=== PATIENT | male | born 1970 | race Caucasian/White ===

== ENCOUNTER → 2016-06-05 | Outpatient (CLI) | payer OTHER ==
[~2016-06-05] MED LIST: ASPCH81X PO; HYDR-4717 PO; HYG/25 PO; LISI40TA PO; METO1TAB68 PO
[2016-06-05 17:48] LABS: BLOOD UREA NITROGEN 25 mg/dl (7-18); BUN/CREATININE RATIO 15.5 (10-20); CALCIUM 8.8 mg/dl (8.5-10.1); CARBON DIOXIDE 23 mmol/L (21-32); CHLORIDE 105 mmol/L (98-107); GLUCOSE 88 mg/dl (70-99); MAGNESIUM 2.3 mg/dl (1.8-2.4); PHOSPHORUS 2.5 mg/dl (2.5-4.9); POTASSIUM 3.3 mmol/L (3.5-5.1); SODIUM 142 mmol/L (136-145)
[2016-06-05 18:09] LABS: CHOLESTEROL 190 mg/dl (0-200); CHOLESTEROL/HDL RATIO 5.4; HDL CHOLESTEROL 35 mg/dl; TRIGLYCERIDES 400 mg/dl (0-150)
== END | disposition home or self-care (01) ==
LOC: C.LABBFT 12:28
PROVIDERS: ATTEND Internal Medicine Nephrology
DX: I10 Essential (primary) hypertension (principal)

== ENCOUNTER 2017-05-26 07:26 | Emergency (ER) | payer OTHER ==
[~2017-05-26] VITALS: Ht 182.9 cm; Wt 126.9 kg
[~2017-05-26 07:26] MED LIST changes: +METO-479 PO; -METO1TAB68 PO
[2017-05-26 07:33] VITALS: Ht 182.9 cm; Wt 126.9 kg
[2017-05-26] MEDS ORDERED: DEXAMETHASONE **PF** INJ 10 MG/ML VIAL IV ONE (08:00)
--- NOTE | 2017-05-26 08:04 | EMERGENCY ROOM VISIT NOTE ---
History Report prepared by [employer]: Rachele Wadsworth Under the Supervision of: Dr. Jenny Rowell D.O. First contact with patient: 07:39 Chief Complaint: SWELLING TO EXTREMITY Stated Complaint: SWELLED/PAINFUL HANDS,ELBOWS LOCKING/PAIN,ABD PAIN History of Present Illness The patient is a 46 year old male who presents to the Emergency Room with complaints of persistent swelling to his hands for the past 3 to 4 days. He states he saw his doctor for neck pain 2 days ago who prescribed him Aleve and a muscle relaxer. His neck pain resolved, but then his hands became "painful and swollen". He rates his pain as a 6.5/10 in severity and describes it as feeling like "tingling". The swelling does not extend past his wrists. Any movement worsens his discomfort. 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 He wears gloves when he is working and last worked 2 days [employer]. He also reports he moved yesterday and while he wasn't able to help with moving boxes, he was able to drive his truck and hold the steering wheel. The patient denies any recent fevers, chills, cough, congestion, nausea, vomiting or diarrhea. Source of History: patient Onset: 3 to 4 days [employer] Position: hand (bilateral) Symptom Intensity: 6.5/10 Timing: other (persistent) Modifying Factors (Worsening): movement Associated Symptoms: No fevers, No chills, No cough (or congestion), No nausea, No vomiting, No diarrhea Review of Systems See HPI for pertinent positives and negatives. A total of ten systems were reviewed and were otherwise negative. Past Medical & Surgical Medical Problems: (1) Hypertension (2) Hypertensive urgency (3) Kidney stone Family History Hypertension Social History Smoking Status: Current Some Day Smoker Alcohol Use: occasionally Drug Use: none Marital Status: , other (engaged) Housing Status: lives with family Occupation Status: employed Current/Historical Medications Scheduled Aspirin (Aspirin Chewable), 81 MG PO DAILY Chlorthalidone (Hygroton), 25 MG PO DAILY Cholecalciferol (Vitamin D3), 1,000 UNITS PO DAILY Hydralazine Hcl (Apresoline), 50 MG PO TID Levothyroxine Sodium (Levothyroxine Sodium), 25 MG PO DAILY Lisinopril (Zestril), 40 MG PO DAILY Metoprolol Succinate (Toprol Xl), 100 MG PO BID Prednisone (Prednisone), 3 TAB PO DAILY Simvastatin (Zocor), 20 MG PO QPM Scheduled PRN Methocarbamol (Robaxin), 500 MG PO QID PRN for Muscle Spasms Allergies Coded Allergies: No Known Allergies (Unverified , 05/26/17) Physical Exam Vital Signs Date Time Temp Pulse Resp B/P (MAP) Pulse Ox O2 Delivery O2 Flow Rate FiO2 05/26/17 14:59 37.4 68 18 114/62 99 Room Air 05/26/17 14:59 68 18 114/59 99 05/26/17 13:53 77 20 103/60 98 Room Air 05/26/17 12:30 73 20 100/62 98 Room Air 05/26/17 11:00 73 20 125/74 99 Room Air 05/26/17 09:42 90 20 121/71 05/26/17 08:34 91 05/26/17 08:29 92 20 120/85 91 Room Air 05/26/17 08:18 96 Room Air 05/26/17 07:33 37.4 110 18 104/62 96 Room Air Physical Exam GENERAL: Awake, alert, well-appearing, in no distress HENT: Normocephalic, atraumatic. Oropharynx unremarkable. Dry mucous membranes. EYES: Normal conjunctiva. Sclera non-icteric. NECK: Supple. No nuchal rigidity. FROM. No JVD. RESPIRATORY: Clear to auscultation. CARDIAC: Regular rate, normal rhythm. Extremities warm and well perfused. Pulses equal. ABDOMEN: Soft, non-distended. No tenderness to palpation. No rebound or guarding. No masses. RECTAL: Deferred. MUSCULOSKELETAL: Chest examination reveals no tenderness. The back is symmetrical on inspection without obvious abnormality. There is no CVA tenderness to palpation. Mild edema of bilateral hands with slight warmth but no overlying erythema. Right hand with FROM passive and active. Left hand with pain with passive stretch of 3rd and 4th phalanges. No ttp or edema proximally to hands of BLE. Compartments soft. Brisk cap refill. LOWER EXTREMITIES: Calves are equal size bilaterally and non-tender. No edema. No discoloration. NEURO: Normal sensorium. No sensory or motor deficits noted. SKIN: No rash or jaundice noted. Medical Decision & Procedures ER Provider Diagnostic Interpretation: Radiology results as stated below per my review and radiologist interpretation: CHEST ONE VIEW PORTABLE CLINICAL HISTORY: Chest pain. COMPARISON STUDY: Chest radiograph July 24, 2015. FINDINGS: Lung volumes are mildly diminished. Linear bibasilar opacities favor atelectasis. Mild interstitial thickening is noted. Mild cardiomegaly is noted. A 2.2 cm right apical density is similar to prior exam. IMPRESSION: 1. Mild interstitial thickening which is nonspecific and could reflect mild pulmonary edema, infectious process or interstitial lung disease. 2. No change in a 2.2 cm right apical density. A follow-up nonemergent chest CT is recommended to exclude a pulmonary nodule. 3. Mild cardiomegaly. Electronically signed by: Bandar Narvaez M.D. 05/26/2017 8:23 AM R HAND MIN 3 VIEWS ROUTINE CLINICAL HISTORY: Bilateral hand pain and swelling. COMPARISON: None FINDINGS: Alignment of the right hand is anatomic. No fracture or suspicious lesion is present. No erosions are identified. IMPRESSION: Unremarkable right hand radiographs. Electronically signed by: Bandar Narvaez M.D. 05/26/2017 8:24 AM L HAND MIN 3 VIEWS ROUTINE CLINICAL HISTORY: Bilateral hand pain and swelling. COMPARISON: None FINDINGS: Alignment of the left hand is anatomic. No fracture or lesion is identified. No erosions are identified. IMPRESSION: Unremarkable left hand radiographs. Electronically signed by: Bandar Narvaez M.D. 05/26/2017 8:25 AM Laboratory Results 05/26/17 08:15 Red Blood Count 5.12, Mean Corpuscular Volume 87.1, Mean Corpuscular Hemoglobin 30.3, Mean Corpuscular Hemoglobin Concent 34.8, Mean Platelet Volume 10.7, Neutrophils (%) (Auto) 77.0, Lymphocytes (%) (Auto) 8.5, Monocytes (%) (Auto) 13.4, Eosinophils (%) (Auto) 0.6, Basophils (%) (Auto) 0.2, Neutrophils # (Auto ) 8.88, Lymphocytes # (Auto) 0.98, Monocytes # (Auto) 1.54, Eosinophils # (Auto ) 0.07, Basophils # (Auto) 0.02 05/26/17 08:15 Test 05/26/17 08:15 White Blood Count 11.53 K/uL (4.8-10.8) Red Blood Count 5.12 M/uL (4.7-6.1) Hemoglobin 15.5 g/dL (14.0-18.0) Hematocrit 44.6 % (42-52) Mean Corpuscular Volume 87.1 fL (80-100) Mean Corpuscular Hemoglobin 30.3 pg (25-34) Mean Corpuscular Hemoglobin Concent 34.8 g/dl (32-36) Platelet Count 235 K/uL (130-400) Mean Platelet Volume 10.7 fL (7.4-10.4) Neutrophils (%) (Auto) 77.0 % Lymphocytes (%) (Auto) 8.5 % Monocytes (%) (Auto) 13.4 % Eosinophils (%) (Auto) 0.6 % Basophils (%) (Auto) 0.2 % Neutrophils # (Auto) 8.88 K/uL (1.4-6.5) Lymphocytes # (Auto) 0.98 K/uL (1.2-3.4) Monocytes # (Auto) 1.54 K/uL (0.11-0.59) Eosinophils # (Auto) 0.07 K/uL (0-0.5) Basophils # (Auto) 0.02 K/uL (0-0.2) RDW Standard Deviation 45.1 fL (36.4-46.3) RDW Coefficient of Variation 14.0 % (11.5-14.5) Immature Granulocyte % (Auto) 0.3 % Immature Granulocyte # (Auto) 0.04 K/uL (0.00-0.02) Erythrocyte Sedimentation Rate 50 mm/hr (0-14) Anion Gap 10.0 mmol/L (3-11) Est Creatinine Clear Calc Drug Dose 62.0 ml/min Estimated GFR () 43.5 Estimated GFR (Non- 37.5 BUN/Creatinine Ratio 22.0 (10-20) Calcium Level 8.7 mg/dl (8.5-10.1) Total Bilirubin 0.6 mg/dl (0.2-1) Direct Bilirubin 0.2 mg/dl (0-0.2) Aspartate Amino Transf (AST/SGOT) 35 U/L (15-37) Alanine Aminotransferase (ALT/SGPT) 36 U/L (12-78) Alkaline Phosphatase 81 U/L (45-117) Troponin I 0.029 ng/ml (0-0.045) C-Reactive Protein 10.10 mg/dl (0-0.29) Pro-B-Type Natriuretic Peptide 190 pg/ml (0-450) Total Protein 8.2 gm/dl (6.4-8.2) Albumin 3.5 gm/dl (3.4-5.0) Lipase 149 U/L (73-393) Laboratory results reviewed by me Medications Administered Medications (Trade) Dose Ordered Sig/Desiree Route Start Time Stop Time Status Last Admin Dose Admin Dexamethasone Sodium Phosphate (Dexamethasone Inj Pf) 10 mg NOW ONCE IV 05/26/17 08:00 05/26/17 08:06 DC 05/26/17 08:25 10 MG Sodium Chloride 500 ml @ 999 mls/hr Q31M STAT IV 05/26/17 09:36 05/26/17 10:06 DC 05/26/17 09:36 999 MLS/HR Vancomycin HCl 2000 mg/Sodium Chloride 540 ml @ 200 mls/hr ONE STAT IV 05/26/17 10:04 05/26/17 12:45 DC 05/26/17 11:35 200 MLS/HR Piperacillin Sod/ Tazobactam Sod (Zosyn Iv) 4.5 gm NOW STAT IV 05/26/17 10:04 05/26/17 10:08 DC 05/26/17 10:04 4.5 GM ECG Indication: weakness Rate (beats per minute): 96 Rhythm: normal sinus Findings: no acute ischemic change, other (normal axis) Change: Patient's electrocardiogram interpreted by me. ED Course 0756: The patient was evaluated in room A11B. A complete history and physical exam was performed. 0955: I reevaluated the patient. He is still in some pain but resting. I will consult Orthopedics. 1003: I discussed the patients case with Doug Rodriguez and [facility]. The patient will be further evaluated. 1055: I spoke with Dr. Rodriguez. He thinks the patient can hold off on antibiotics and will follow up with him on Sunday. Medical Decision I reviewed the patient's past medical history, medications, and the nursing notes as described above. The patient's presentation and history were concerning for renal failure, cellulitis, arthritis, tendonitis and tenosynovitis. The patient is a 46-year-old gentleman who presents emergency Department with bilateral hand swelling and pain per hpi. I'll the patient is uncomfortable but no acute distress, afebrile with stable vital signs. On exam the patient has mild swelling of both hands mild pain with passive stretch of the third and fourth phalanges. Labs demonstrate elevated ESR 50 and CRP 10, with WBC marginally elevated to 11. Otherwise, creatinine slightly elevated from baseline to 2 in the setting of the patient appearing clinically dry. Plain films of hands unremarkable. This was discussed with 's after, orthopedics on-call, we agreed to give the patient a dose of empiric antibiotics (was ordered for vancomycin and Zosyn) until he was able to evaluate the patient at the bedside. Blood cultures sent and pending. Upon his evaluation at the bedside , he recommends that the patient's symptoms are more likely an inflammatory tenosynovitis thus we can defer further antibiotics at this time. He will see the patient in his clinic on Sunday. Given the patient's CKD will treat the patient with prednisone for anti-inflammatory. Findings and plan for follow-up reviewed with patient. Patient agreeable and d/c'd per discharge instructions. Medication Reconcilliation Current Medication List: was personally reviewed by me Blood Pressure Screening Patient's blood pressure: Normal blood pressure Blood pressure disposition: Did not require urgent referral Consults Time Called: 1001 Consulting Physician: Doug Rodriguez and [facility] Returned Call: 1003 I discussed the patients case with Doug Rodriguez and [facility]. The patient will be further evaluated. Impression Primary Impression: Tenosynovitis of finger and hand Scribe Attestation The scribe's documentation has been prepared under my direction and personally reviewed by me in its entirety. I confirm that the note above accurately reflects all work, treatment, procedures, and medical decision making performed by me. Departure Information Dispostion Home / Self-Care Prescriptions Prednisone (Prednisone) 20 Mg Tab 3 TAB PO DAILY for 4 Days, #12 TAB FOR 4 DAYS Prov: Gato Buchanan M.D. 05/26/17 Referrals Barbara Braun, C.R.N.P. (PCP) Patient Instructions ED [place] Tenosynovitis, [facility] Additional Instructions Please follow up with orthopedics on Sunday, Dr. Rodriguez, for re-evaluation. You most likely have an inflammatory tenosynovitis. Otherwise, your exam, xrays, and lab results did not show signs of an emergent condition at this time. Acetaminophen pain and fevers as needed. Prednisone as directed. Drink plenty of fluids to ensure hydration. Return to the emergency department for worsening symptoms as described in the accompanying instructions.
[2017-05-26] MEDS ORDERED: METH500T PO (08:17)
[2017-05-26] MEDS ORDERED: LEVO25TA5 PO (08:17)
[2017-05-26] MEDS ORDERED: CHOL1000 PO (08:17)
[2017-05-26] MEDS ORDERED: SIMV20TA2 PO (08:17)
[2017-05-26 08:18] VITALS: O2SAT 96
[2017-05-26] MEDS ORDERED: METO-479 PO (08:18)
[2017-05-26] MEDS ORDERED: HYDR-4717 PO (08:18)
--- NOTE | 2017-05-26 08:24 | DIAGNOSTIC IMAGING REPORT ---
CHEST ONE VIEW PORTABLE CLINICAL HISTORY: Chest pain. COMPARISON STUDY: Chest radiograph July 24, 2015. FINDINGS: Lung volumes are mildly diminished. Linear bibasilar opacities favor atelectasis. Mild interstitial thickening is noted. Mild cardiomegaly is noted. A 2.2 cm right apical density is similar to prior exam. IMPRESSION: 1. Mild interstitial thickening which is nonspecific and could reflect mild pulmonary edema, infectious process or interstitial lung disease. 2. No change in a 2.2 cm right apical density. A follow-up nonemergent chest CT is recommended to exclude a pulmonary nodule. 3. Mild cardiomegaly. Electronically signed by: Bandar Narvaez M.D. 05/26/2017 8:23 AM Dictated Date/Time: 05/26/2017 8:21 AM
--- NOTE | 2017-05-26 08:25 | DIAGNOSTIC IMAGING REPORT ---
R HAND MIN 3 VIEWS ROUTINE CLINICAL HISTORY: Bilateral hand pain and swelling. COMPARISON: None FINDINGS: Alignment of the right hand is anatomic. No fracture or suspicious lesion is present. No erosions are identified. IMPRESSION: Unremarkable right hand radiographs. Electronically signed by: Bandar Narvaez M.D. 05/26/2017 8:24 AM Dictated Date/Time: 05/26/2017 8:23 AM
--- NOTE | 2017-05-26 08:26 | DIAGNOSTIC IMAGING REPORT ---
L HAND MIN 3 VIEWS ROUTINE CLINICAL HISTORY: Bilateral hand pain and swelling. COMPARISON: None FINDINGS: Alignment of the left hand is anatomic. No fracture or lesion is identified. No erosions are identified. IMPRESSION: Unremarkable left hand radiographs. Electronically signed by: Bandar Narvaez M.D. 05/26/2017 8:25 AM Dictated Date/Time: 05/26/2017 8:24 AM
[2017-05-26 08:42] LABS: BASO % 0.2 %; BASO ABS # 0.02 K/uL (0-0.2); EOS % 0.6 %; EOS ABS # 0.07 K/uL (0-0.5); HEMATOCRIT 44.6 % (42-52); HEMOGLOBIN 15.5 g/dL (14.0-18.0); IG# 0.04 K/uL (0.00-0.02); LYMPH % 8.5 %; LYMPH ABS # 0.98 K/uL (1.2-3.4); MEAN CELL VOLUME 87.1 fL (80-100); MEAN CORPUSCULAR HEMOGLOBIN 30.3 pg (25-34); MEAN CORPUSCULAR HGB CONC 34.8 g/dl (32-36); MEAN PLATELET VOLUME 10.7 fL (7.4-10.4); MONO % 13.4 %; MONO ABS # 1.54 K/uL (0.11-0.59); NEUT ABS # 8.88 K/uL (1.4-6.5); PLATELET COUNT 235 K/uL (130-400); RED CELL DISTRIBUTION WIDTH SD 45.1 fL (36.4-46.3); WHITE BLOOD COUNT 11.53 K/uL (4.8-10.8)
[2017-05-26 08:51] LABS: ALBUMIN 3.5 gm/dl (3.4-5.0); CALCIUM 8.7 mg/dl (8.5-10.1); CREATININE 2.07 mg/dl (0.60-1.40)
[2017-05-26 08:56] LABS: TOTAL PROTEIN 8.2 gm/dl (6.4-8.2)
[2017-05-26] MEDS ORDERED: SODIUM CHLORIDE 0.9% 1000ML 1,000 ML IV STA (09:34)
[2017-05-26] MEDS ORDERED: SODIUM CHLORIDE 0.9% 500ML 500 ML IV STA (09:36)
[2017-05-26] MEDS ORDERED: VANCOMYCIN INJ 2,000 MG in SODIUM CHLORIDE 0.9% 500ML 500 ML IV STA (10:04)
[2017-05-26] MEDS ORDERED: PIPERACILLIN/TAZOBACTAM 4.5 GM/100ML D5W IV STA (10:04)
[2017-05-26] MEDS ORDERED: VANCOMYCIN CONSULT ACTIVE PRN (10:15)
[2017-05-26] MEDS ORDERED: PRED20TA PO (11:25)
[2017-05-26 14:59] VITALS: BP 114/62; PULSE 68; TEMP 37.4; O2SAT 99
== END 2017-05-26 15:01 | disposition home or self-care (01) ==
LOC: C.EDB 07:27 → C.EDA 15:01
DX: M65.849 Other synovitis and tenosynovitis, unspecified hand (principal); I10 Essential (primary) hypertension; Z87.442 Personal history of urinary calculi; Z82.49 Family history of ischemic heart disease and other diseases of the circulatory system; F17.210 Nicotine dependence, cigarettes, uncomplicated; Z79.82 Long term (current) use of aspirin; Z79.899 Other long term (current) drug therapy

== ENCOUNTER → 2017-06-19 | Outpatient (CLI) | payer OTHER ==
[~2017-06-19] MED LIST changes: +CHOL1000 PO; +LEVO25TA5 PO; +METH500T PO; +SIMV20TA2 PO
--- NOTE | 2017-06-19 11:12 | DIAGNOSTIC IMAGING REPORT ---
(CHEST) THORAX WITHOUT CLINICAL HISTORY: R91.8 abnormal chest x-ray. 2.2 cm right apical density. COMPARISON STUDY: Chest x-ray dated May 26, 2017 CT DOSE: 742.70 mGy.cm TECHNIQUE: CT of the thorax was performed from the thoracic inlet to the lung bases. Images are reviewed in the axial, sagittal, and coronal planes. IV contrast was not administered for this examination. A dose lowering technique was utilized adhering to the principles of ALARA. FINDINGS: Thyroid: There is a 14 mm right lobe thyroid nodule. Thoracic aorta: The thoracic aorta is normal in course and caliber, noting standard 3 vessel arch anatomy. Heart: The heart is normal in size and configuration, without pericardial effusion. Lungs and pleural spaces: There is a small left pleural effusion. There is a 6 mm pleural-based right lower lobe pulmonary nodule as visualized in image #200/301. There is a 5 mm right upper lobe pulmonary nodule as visualized in image #114/301. There is a 5 mm pleural-based left upper lobe pulmonary nodule as visualized in image #114/301. There are biapical fibronodular opacities. There is diffuse subpleural interstitial thickening. There are subtle diffuse groundglass nodules within the upper lung zones Mediastinum: There are multiple mildly enlarged mediastinal lymph nodes measuring up to 16 mm in short axis. Liz: Evaluation the hilar structures is limited due to the lack of intravenous contrast. Borderline enlarged hilar lymph nodes are suspected Axilla: There is no evidence of pathologic axillary lymphadenopathy Upper abdomen: Partially visualized upper abdominal viscera is within normal limits. Skeletal structures: There are no lytic or blastic osseous lesions. IMPRESSION: 1. Mediastinal lymphadenopathy 2. Small left pleural effusion 3. Subtle diffuse groundglass nodules in the lung apices 4. Biapical fibronodular opacities. 5. Scattered subcentimeter pulmonary nodules 6. The above-mentioned findings are nonspecific. There is a wide differential for the above-mentioned findings including sarcoidosis, infection, noninfectious inflammatory conditions, as well as neoplasm. Pulmonary consultation should be considered in follow-up Electronically signed by: George Emerson M.D. 06/19/2017 11:10 AM Dictated Date/Time: 06/19/2017 10:57 AM
== END | disposition home or self-care (01) ==
LOC: C.CTS 10:47
PROVIDERS: ATTEND Nurse Practitioner
DX: R91.8 Other nonspecific abnormal finding of lung field (principal); R59.0 Localized enlarged lymph nodes

== ENCOUNTER → 2017-06-26 | Outpatient (CLI) | payer OTHER ==
[~2017-06-26] MED LIST changes: +AMLO-110 PO
[2017-06-26 12:47] LABS: ALBUMIN 3.6 gm/dl (3.4-5.0); BLOOD UREA NITROGEN 21 mg/dl (7-18); CALCIUM 9.2 mg/dl (8.5-10.1); CARBON DIOXIDE 25 mmol/L (21-32); CREATININE 1.66 mg/dl (0.60-1.40); GLUCOSE 87 mg/dl (70-99); POTASSIUM 3.4 mmol/L (3.5-5.1); SODIUM 136 mmol/L (136-145)
[2017-06-26 12:57] LABS: ALKALINE PHOSPHATASE 93 U/L (45-117); ALT/SGPT 38 U/L (12-78); AST/SGOT 35 U/L (15-37); CHOLESTEROL 190 mg/dl (0-200); LDL CHOLESTEROL CALCULATED 81 mg/dl; TOTAL PROTEIN 8.5 gm/dl (6.4-8.2)
[2017-06-27 15:02] LABS: ANA SCREEN TC 249X POSITIVE (NEGATIVE)
== END | disposition home or self-care (01) ==
LOC: C.LAB1850 09:49
PROVIDERS: ATTEND Nurse Practitioner
DX: E78.00 Pure hypercholesterolemia, unspecified (principal); I10 Essential (primary) hypertension; E03.9 Hypothyroidism, unspecified; M79.89 Other specified soft tissue disorders

== ENCOUNTER → 2017-06-28 | Outpatient (CLI) | payer OTHER ==
--- NOTE | 2017-06-28 15:55 | DIAGNOSTIC IMAGING REPORT ---
THYROID ULTRASONOGRAPHY CLINICAL HISTORY: E04.2 Multiple thyroid nodules COMPARISON STUDY: Chest CT scan performed June 19, 2017 FINDINGS: The right lobe of the thyroid measures 38 x 20 x 23 mm. There is a circumscribed hypoechoic upper pole nodule which contains calcifications. This measures 16 x 13 x 13 mm. There is a mid pole mixed echogenicity wider than tall circumscribed nodule measuring 17 x 9 x 17 mm. The left lobe measures 43 x 20 x 21 mm. There is a slightly hypoechoic posterior mid pole circumscribed wider than tall nodule measuring 12 x 8 x 8 mm. There is an isoechoic nodule arising from the right isthmus measuring 17 x 14 x 14 mm. IMPRESSION: Multinodular thyroid gland. The 2 right-sided nodules, and the right isthmus nodule meet criteria for biopsy recommendation . Electronically signed by: George Emerson M.D. 06/28/2017 3:53 PM Dictated Date/Time: 06/28/2017 3:49 PM
== END | disposition home or self-care (01) ==
LOC: C.ULTR 15:12
PROVIDERS: ATTEND Nurse Practitioner
DX: E04.2 Nontoxic multinodular goiter (principal)

== ENCOUNTER 2017-06-29 08:40 | Emergency (ER) | payer OTHER ==
[~2017-06-29] VITALS: Ht 182.9 cm; Wt 128.0 kg
[~2017-06-29 08:40] MED LIST changes: -AMLO-110 PO
[2017-06-29 08:43] VITALS: TEMP 37.2; Ht 182.9 cm; Wt 128.0 kg
[2017-06-29] MEDS ORDERED: FAMOTIDINE 20MG/5ML IV PUSH IV STA (08:55)
[2017-06-29] MEDS ORDERED: ALUMINUM/MAGNESIUM SUSP 30 ML UDC PO STA (08:55)
[2017-06-29] MEDS ORDERED: LIDOCAINE HCL 2% VISC SOLN 20 ML UDC PO STA (08:55)
[2017-06-29] MEDS ORDERED: PANTOprazole INJ 40 MG in SYRINGE 0 ML IV ONE (09:00)
[2017-06-29 09:20] LABS: BASO % 0.1 %; BASO ABS # 0.01 K/uL (0-0.2); EOS % 1.3 %; EOS ABS # 0.13 K/uL (0-0.5); HEMATOCRIT 48.5 % (42-52); HEMOGLOBIN 16.8 g/dL (14.0-18.0); IG# 0.04 K/uL (0.00-0.02); LYMPH % 7.1 %; MEAN CELL VOLUME 87.2 fL (80-100); MEAN CORPUSCULAR HEMOGLOBIN 30.2 pg (25-34); MEAN CORPUSCULAR HGB CONC 34.6 g/dl (32-36); MEAN PLATELET VOLUME 10.6 fL (7.4-10.4); MONO ABS # 1.18 K/uL (0.11-0.59); NEUT % 79.1 %; NEUT ABS # 7.78 K/uL (1.4-6.5); PLATELET COUNT 229 K/uL (130-400); RED CELL DISTRIBUTION WIDTH CV 14.4 % (11.5-14.5); RED CELL DISTRIBUTION WIDTH SD 46.3 fL (36.4-46.3); WHITE BLOOD COUNT 9.84 K/uL (4.8-10.8)
[2017-06-29] MEDS ORDERED: AMLO-110 PO (09:20)
[2017-06-29 09:37] LABS: ALBUMIN 3.5 gm/dl (3.4-5.0); CREATININE 1.73 mg/dl (0.60-1.40); TOTAL PROTEIN 8.3 gm/dl (6.4-8.2)
[2017-06-29 09:39] LABS: POTASSIUM 3.4 mmol/L (3.5-5.1)
--- NOTE | 2017-06-29 09:54 | EMERGENCY ROOM VISIT NOTE ---
History First contact with patient: 08:49 Chief Complaint: ABDOMINAL PAIN Stated Complaint: PAIN IN STOMACH AND SIDES Nursing Triage Summary: LUQ abdominal pain 6/10 since last evening. Denies N/V/D or constipation. Denies urinary symptoms. History of Present Illness The patient is a 46 year old male who presents to the Emergency Room with complaints of left upper quadrant pain. The patient states that the pain started last evening in the left upper quadrant which she rates at a 6 out of 10. He states today he now has some pain in the right upper quadrant. The patient denies any nausea vomiting, diarrhea or change in bowel habits. He states he had a normal bowel movement today. The patient has not taken anything at home for his symptoms. He states the pain is pretty much constant. The patient states he has had some intermittent heartburn in the past but has not taken anything for heartburn and "a while" Review of Systems 10 system review was performed and was negative unless stated otherwise history of present illness. Past Medical/Surgical History Medical Problems: (1) Hypertension (2) Hypertensive urgency (3) Kidney stone Family History Hypertension Social History Smoking Status: Current Some Day Smoker Alcohol Use: occasionally Drug Use: none Marital Status: , other Housing Status: lives with family Occupation Status: employed Current/Historical Medications Scheduled Amlodipine (Norvasc), 5 MG PO DAILY Aspirin (Aspirin Chewable), 81 MG PO DAILY Chlorthalidone (Hygroton), 25 MG PO DAILY Levothyroxine Sodium (Levothyroxine Sodium), 25 MG PO DAILY Lisinopril (Zestril), 40 MG PO DAILY Metoprolol Succinate (Toprol Xl), 100 MG PO BID Simvastatin (Zocor), 20 MG PO QPM Physical Exam Vital Signs Date Time Temp Pulse Resp B/P (MAP) Pulse Ox O2 Delivery O2 Flow Rate FiO2 06/29/17 08:43 37.2 94 20 156/88 95 Room Air Physical Exam GENERAL: 46-year-old white male appears in no acute distress. MENTAL Status: Alert and oriented 3. MOUTH: Mucosa is moist NECK: Supple, no lymphadenopathy noted. No carotid bruits noted. LUNGS: Clear auscultation without wheezes rales or rhonchi. CARDIAC: Regular rate and rhythm without murmur. Pulses is full and equal throughout. BACK: No CVA tenderness noted. ABDOMEN: Positive bowel sounds all 4 quadrants. Soft, nontender to palpation without organomegaly or masses. EXTREMITIES: No cyanosis or edema noted. Medical Decision & Procedures Laboratory Results 06/29/17 09:05 Red Blood Count 5.56, Mean Corpuscular Volume 87.2, Mean Corpuscular Hemoglobin 30.2, Mean Corpuscular Hemoglobin Concent 34.6, Mean Platelet Volume 10.6, Neutrophils (%) (Auto) 79.1, Lymphocytes (%) (Auto) 7.1, Monocytes (%) (Auto) 12.0, Eosinophils (%) (Auto) 1.3, Basophils (%) (Auto) 0.1, Neutrophils # (Auto ) 7.78, Lymphocytes # (Auto) 0.70, Monocytes # (Auto) 1.18, Eosinophils # (Auto ) 0.13, Basophils # (Auto) 0.01 06/29/17 09:05 Test 06/29/17 09:05 White Blood Count 9.84 K/uL (4.8-10.8) Red Blood Count 5.56 M/uL (4.7-6.1) Hemoglobin 16.8 g/dL (14.0-18.0) Hematocrit 48.5 % (42-52) Mean Corpuscular Volume 87.2 fL (80-100) Mean Corpuscular Hemoglobin 30.2 pg (25-34) Mean Corpuscular Hemoglobin Concent 34.6 g/dl (32-36) Platelet Count 229 K/uL (130-400) Mean Platelet Volume 10.6 fL (7.4-10.4) Neutrophils (%) (Auto) 79.1 % Lymphocytes (%) (Auto) 7.1 % Monocytes (%) (Auto) 12.0 % Eosinophils (%) (Auto) 1.3 % Basophils (%) (Auto) 0.1 % Neutrophils # (Auto) 7.78 K/uL (1.4-6.5) Lymphocytes # (Auto) 0.70 K/uL (1.2-3.4) Monocytes # (Auto) 1.18 K/uL (0.11-0.59) Eosinophils # (Auto) 0.13 K/uL (0-0.5) Basophils # (Auto) 0.01 K/uL (0-0.2) RDW Standard Deviation 46.3 fL (36.4-46.3) RDW Coefficient of Variation 14.4 % (11.5-14.5) Immature Granulocyte % (Auto) 0.4 % Immature Granulocyte # (Auto) 0.04 K/uL (0.00-0.02) Anion Gap 7.0 mmol/L (3-11) Est Creatinine Clear Calc Drug Dose 74.6 ml/min Estimated GFR () 54.1 Estimated GFR (Non- 46.6 BUN/Creatinine Ratio 17.6 (10-20) Calcium Level 9.0 mg/dl (8.5-10.1) Total Bilirubin 0.6 mg/dl (0.2-1) Direct Bilirubin 0.2 mg/dl (0-0.2) Aspartate Amino Transf (AST/SGOT) 29 U/L (15-37) Alanine Aminotransferase (ALT/SGPT) 37 U/L (12-78) Alkaline Phosphatase 94 U/L (45-117) Total Protein 8.3 gm/dl (6.4-8.2) Albumin 3.5 gm/dl (3.4-5.0) Lipase 133 U/L (73-393) Medications Administered Medications (Trade) Dose Ordered Sig/Desiree Route Start Time Stop Time Status Last Admin Dose Admin Lidocaine HCl (Viscous Lidocaine 2% Soln) 10 ml NOW STAT PO 06/29/17 08:55 06/29/17 08:57 DC 06/29/17 09:13 10 ML Al Hydroxide/Mg Hydroxide (Maalox Susp) 30 ml NOW STAT PO 06/29/17 08:55 06/29/17 08:57 DC 06/29/17 09:12 30 ML Pantoprazole Sodium 40 mg/ Syringe 10 ml @ 5 mls/min NOW ONCE IV 06/29/17 09:00 06/29/17 09:01 DC 06/29/17 09:00 5 MLS/MIN Famotidine (Pepcid 20mg Iv Push) 20 mg NOW STAT IV 06/29/17 08:55 06/29/17 08:57 DC 06/29/17 09:12 20 MG ED Course The patient was evaluated. Patient did not have any physical findings on exam. IV access was obtained. CBC with differential, renal profile, LFTs and lipase levels were ordered. Urinalysis was ordered. The patient was unable to give a urine sample in the ER. Labs are reviewed and were unremarkable. The patient was given Protonix 40 mg IV push, Thrbrl32 mg IV push and a GI cocktail. The patient was reevaluated. Patient stated that he was feeling better. He was discharged home in stable condition. Medical Decision Differential diagnosis include acute cholecystitis, cholelithiasis, acute gastritis, GERD, heartburn, indigestion The patient did not have any findings on physical exam therefore no diagnostic imaging was performed. [place] Drug Monitoring Program Search Results: patient reviewed within database Medication Reconcilliation Current Medication List: was personally reviewed by me Blood Pressure Screening Patient's blood pressure: Elevated blood pressure Blood pressure disposition: Elevated BP felt to be situational Impression Primary Impression: Left upper quadrant pain Departure Information Dispostion Home / Self-Care Condition GOOD Referrals Barbara Braun, C.R.N.P. (PCP) Forms Call Back Authorization, HOME CARE DOCUMENTATION FORM, IMPORTANT VISIT INFORMATION Patient Instructions ED Epigastric Pain [facility], [facility] Additional Instructions Follow bland diet. Advance diet slowly as tolerated. Take [id number] omeprazole as directed on the label. Also recommend [id number] Zantac 150 mg at bedtime. Avoid spicy or acidic foods. If symptoms are not improving in 4-5 days, follow-up with your family doctor for further evaluation.
[2017-06-29 10:50] VITALS: BP 149/99; PULSE 82; O2SAT 95
== END 2017-06-29 11:15 | disposition home or self-care (01) ==
LOC: C.EDB 08:42 → C.EDA 11:15
DX: R10.12 Left upper quadrant pain (principal); I10 Essential (primary) hypertension; Z87.442 Personal history of urinary calculi; Z82.49 Family history of ischemic heart disease and other diseases of the circulatory system; F17.210 Nicotine dependence, cigarettes, uncomplicated; Z79.82 Long term (current) use of aspirin; Z79.899 Other long term (current) drug therapy

== ENCOUNTER → 2017-07-16 | Outpatient (CLI) | payer OTHER ==
[~2017-07-16] MED LIST changes: +AMLO-110 PO; -CHOL1000 PO; -HYDR-4717 PO; -METH500T PO
--- NOTE | 2017-07-16 12:24 | DIAGNOSTIC IMAGING REPORT ---
GUIDANCE NEEDLE PLACEMENT CLINICAL HISTORY: THYROID NODULES multinodular thyroid TECHNIQUE: Ultrasound guided fine-needle aspiration x2 COMPARISON STUDY: 06/28/2017 FINDINGS: Following description of the procedure and informed consent, 2 passes were made respectively to the upper and lower nodule of the right thyroid lobe. The nodule of the thyroid isthmus could not be adequately targeted. Pathology initially indicated adequate specimen sample for diagnostic purposes. There were no complications. IMPRESSION: Fine-needle aspiration of the 2 nodules of the right thyroid lobe. No complications. Pathology is pending. The third nodule of the thyroid isthmus could not be accurately targeted The above report was generated using voice recognition software. It may contain grammatical, syntax or spelling errors. Electronically signed by: Bassam Kimbrough M.D. 07/16/2017 12:23 PM Dictated Date/Time: 07/16/2017 12:21 PM
== END | disposition home or self-care (01) ==
LOC: C.ULTR 11:07
PROVIDERS: ATTEND Nurse Practitioner
DX: E04.2 Nontoxic multinodular goiter (principal); C73 Malignant neoplasm of thyroid gland

== ENCOUNTER → 2017-09-06 | Outpatient (CLI) | payer OTHER | END | disposition home or self-care (01) | LOC: C.LABBFT 15:39 | PROVIDERS: ATTEND Internal Medicine Endocrinology, Diabetes & Metabolism | DX: R53.83 Other fatigue (principal); E55.9 Vitamin D deficiency, unspecified; M79.89 Other specified soft tissue disorders; R76.8 Other specified abnormal immunological findings in serum; I73.00 Raynaud's syndrome without gangrene ==

== ENCOUNTER 2019-03-21 20:54 | Inpatient (IN) ==
[2019-03-21] MEDS ORDERED: ACETAMINOPHEN 1,000 MG/100 ML VIAL IV STA (21:26)
--- NOTE | 2019-03-21 21:55 | XRay Report ---
XR chest 1V portable CLINICAL HISTORY: weakness COMPARISON STUDY: 06/09/2018 FINDINGS: The heart is mildly enlarged. There is mild elevation of the interstitium. This may in part be accentuated due to the patient's large body habitus. Clinical correlation regards to congestive f ailure/fluid overload is recommended. There is no focal pulmonary consolidation. There are no pleural effusions.[ IMPRESSION: 1. No evidence of focal pulmonary consolidation 2. Mild elevation of the interstitium. While this may in part be accentuated due to the patient's lar ge body habitus, mild congestive failure/fluid overload cannot be excluded. Electronically signed by: George Emerson M.D. 03/21/2019 9:54 PM
[2019-03-21] MEDS ORDERED: AMLODIPINE BESYLATE 5 MG TAB PO ONE (22:23)
[2019-03-21] MEDS ORDERED: LISINOPRIL 5 MG TAB PO ONE (22:23)
[2019-03-21] MEDS ORDERED: METOPROLOL TARTRATE 50 MG TAB PO STA (22:23)
--- NOTE | 2019-03-21 22:23 | Emergency Department Note ---
Entered by Kyra Baron acting as a scribe for History of Present Illness General Chief complaint: Pain (Generalized) Stated complaint: PAIN/DISCOMFORT WAIST DOWN, BALANCE ISSUE Time Seen by Provider: 03/21/19 21:21 Source: patient Mode of arrival: ambulatory Limitations: no limitations History of Present Illness Provider complaint: Bilateral leg pain Onset (ago): hour(s) (1-2 hours ago) Location: lower extremity (bilateral legs) Pain Consistency: + other (worsening) Maximum Pain Intensity: 5 Quality: + other (pain) Exacerbated By: + movement Associated symptoms: + other (Additional symptoms: general discomfort, constipation (now resolved), bilateral leg swelling. Denies: urinary symptoms); no fever/chills Treatments prior to arrival: none The patient is a 48 year old male with a history of hypertension, myocardial infarction, kidney stone, and thyroidectomy who presents to the Emergency Room with complaints of worsening bilateral leg pain starting 1-2 hours ago. The patient reports that he started having discomfort with walking 1-2 hours ago. He states that he feels like he "cannot keep up" and that his legs feel like "bricks." He also complains of general discomfort from his lower abdomen down, now-resolved constipation, and bilateral leg swelling. He claims that he has had a recent sinus cold and bronchitis, for which he tried using a nasal spray and cough syrup. He denies any fevers and urinary symptoms, in addition to any recent trauma and injuries. The patient reports that he has not taken his regular medications for a week due to recent changes in his insurance. He states that he takes Metoprolol, Lisinopril, Amlodipine, Levothyroxine, and a water pill, among others. Home Medications Home Medications Medication Instructions Recorded Confirmed Type amlodipine 5 mg PO DAILY 06/09/18 03/21/19 History aspirin [Aspir-81] 81 mg PO DAILY 06/09/18 03/21/19 History chlorthalidone 25 mg PO DAILY 06/09/18 03/21/19 History levothyroxine 200 mcg PO DAILY 06/09/18 03/21/19 History [id number]-BL-acetaminophen 2 cap PO UD PRN 03/21/19 03/21/19 History [[place] Plus Cold/CoughFm] lisinopril 0 mg PO DAILY 03/21/19 03/21/19 History metoprolol tartrate 0 mg PO BID 03/21/19 03/21/19 History [id number]-YK-iqjpyakblpz 10 ml PO Q4 PRN 03/21/19 03/21/19 History [Robitussin Cough and Cold CF] Allergies Allergy/AdvReac Type Severity Reaction Status Date / Time No Known Allergies Allergy Unverified 03/21/19 21:54 Past Med/Surg History Medical History Hypertension (Chronic) Kidney stone (Resolved) Myocardial infarct (Inactive) Surgical History S/P thyroidectomy Family History Other Hypertension Social History Preferred Language: Amharic Visual Impairment: No Limitations Hearing Ability: Normal marital status: Single Current Living Situation: Family current occupational status: employed Feels Safe at Home: Yes Smoking Status: Former smoker Hx Substance Use: No Review of Systems See HPI for pertinent positives & negatives. and A total of 10 systems reviewed and were otherwise negative Physical Exam Vital Signs Vital Signs - 24 hr 03/21/19 21:03 03/21/19 21:45 03/21/19 22:00 Temperature 36.8 C Temperature Source Oral Pulse Rate 76 74 Pulse Rate [Left Finger] Pulse Rate from SpO2 Sensor 75 Respiratory Rate 20 20 Blood Pressure 188/112 H 158/109 H Blood Pressure [Right Arm] Blood Pressure Mean 137 120 Blood Pressure Mean [Right Arm] Blood Pressure Position [Right Arm] Pulse Oximetry 96 91 92 Oxygen Delivery Method Room Air Room Air Room Air Sepsis Recent Fever Within 48 Hours No Sepsis New/Unexplained Change in Mental Status No Sepsis Action Taken by Nursing No Action Required 03/21/19 22:30 03/22/19 00:12 Temperature Temperature Source Pulse Rate 61 Pulse Rate [Left Finger] 60 Pulse Rate from SpO2 Sensor 62 Respiratory Rate 19 18 Blood Pressure 146/102 H Blood Pressure [Right Arm] 163/120 H Blood Pressure Mean 117 Blood Pressure Mean [Right Arm] 134 Blood Pressure Position [Right Arm] Sitting Pulse Oximetry 92 95 Oxygen Delivery Method Room Air Room Air Sepsis Recent Fever Within 48 Hours Sepsis New/Unexplained Change in Mental Status Sepsis Action Taken by Nursing GENERAL: Patient is in no acute distress. HEENT: No acute trauma, normocephalic atraumatic, mucous membranes moist, no nasal congestion, no scleral icterus. NECK: No stridor, no adenopathy, no meningismus, trachea is midline. LUNGS: Clear to auscultation bilaterally, no wheeze, no rhonchi, breath sounds equal. HEART: Without murmurs gallops or rubs, regular rate and rhythm. ABDOMEN: Soft, nontender, bowel sounds positive, no hernias, no peritonitis. EXTREMITIES: No cyanosis, full range of motion of all the joints without pain or difficulty, no signs for acute trauma. Moderate bilateral pedal edema. NEUROLOGIC: Oriented x 3, no acute motor or sensory deficits, no focal weakness. SKIN: No rash, no jaundice, no diaphoresis. Course Course 2123: The patient was evaluated in room B10, and a complete history and physical examination were performed. 0007: Kevin Martin called back. He will evaluate the patient for further management. 0009: I checked on the patient and updated him on his results. The patient is agreeable to admission. Consultations Consultation #1: Kevin Martin Tony called back. He will evaluate the patient for further management. Time: 00:07 Administered Medications Discontinued Medications Amlodipine Besylate (Norvasc) 5 mg PO NOW ONE Stop: 03/21/19 22:24 Last Admin: 03/21/19 22:38 Dose: 5 mg Documented by: [id number] Acetaminophen (Ofirmev) 1,000 mg in 100 mls @ 400 mls/hr IV NOW STA Stop: 03/21/19 21:40 Last Infusion: 03/21/19 22:24 Dose: 0 mls/hr Documented by: [id number] Admin: 03/21/19 22:09 Dose: 400 mls/hr Documented by: [id number] Lisinopril (Zestril) 5 mg PO NOW ONE Stop: 03/21/19 22:24 Last Admin: 03/21/19 22:38 Dose: 5 mg Documented by: [id number] Metoprolol Tartrate (Lopressor) 50 mg PO NOW STA Stop: 03/21/19 22:24 Last Admin: 03/21/19 22:38 Dose: 50 mg Documented by: [id number] Critical Care Time Critical Care Time: Yes Total Critical Care Time: 46 I have personally spent 46 minutes of critical care time in the direct management of this patient. This includes bedside care, interpretation of diagnostic studies, and testing, discussion with consultants, patient, and family members, and other required patient management activities. This 46 minutes is in excess of all separately billable procedures. Medical Decision Making Differential Diagnosis Differential diagnosis includes: medication noncompliance, uncontrolled hypertension, renal failure, liver failure, AAA, edema, fluid overload, electrolyte imbalance, UTI, cellulitis, cardiac ischemia. Medical Records Attestation: I reviewed the patient's medical records. Home Medications Current Medication List: was personally reviewed by me Laboratory Data Attestation: I reviewed the patient's lab results. Result diagrams: 03/21/19 22:08 03/21/19 22:08 Lab Results 03/21/19 03/21/19 03/21/19 Range/Units 22:08 22:08 22:08 WBC 11.14 H (4.8-10.8) K/uL RBC 5.65 (4.7-6.1) M/uL Hgb 17.9 (14.0-18.0) g/dL Hct 51.4 (42-52) % MCV 91.0 (80-100) fL MCH 31.7 (25-34) pg MCHC 34.8 (32-36) g/dL RDW Std Deviation 52.8 H (36.4-46.3) fL RDW Coeff of [place] 16.0 H (11.5-14.5) % Plt Count 249 (130-400) K/uL MPV 10.5 H (7.4-10.4) fL Immature Gran % (Auto) 0.4 % Neut % (Auto) 74.4 % Lymph % (Auto) 12.7 % [place] % (Auto) 9.9 % Eos % (Auto) 2.2 % Baso % (Auto) 0.4 % Immature Gran # (Auto) 0.05 H (0.00-0.02) K/uL Neut # (Auto) 8.27 H (1.4-6.5) K/uL Lymph # (Auto) 1.42 (1.2-3.4) K/uL [place] # (Auto) 1.10 H (0.11-0.59) K/uL Eos # (Auto) 0.25 (0-0.5) K/uL Baso # (Auto) 0.05 (0-0.2) K/uL Absolute Nucleated RBC 0.07 H (0-0) K/uL Nucleated RBC % (auto) 0.6 % Sodium 141 (136-145) mmol/L Potassium 3.3 L (3.5-5.1) mmol/L Chloride 105 (98-107) mmol/L Carbon Dioxide 26 (21-32) mmol/L Anion Gap 10.0 (3-11) BUN 19 H (7-18) mg/dl Creatinine 1.91 H (0.6-1.4) mg/dl Est Cr Clr Drug Dosing 72.3 ml/min Est GFR ( Amer) 47.3 Est GFR (Non-Af Amer) 40.8 BUN/Creatinine Ratio 9.8 L (10-20) Glucose 84 (70-99) mg/dl Calcium 7.7 L (8.5-10.1) mg/dl Magnesium 2.1 (1.8-2.4) mg/dl Total Bilirubin 0.5 (0.2-1) mg/dl AST 241 H (15-37) U/L ALT 144 H (12-78) U/L Alkaline Phosphatase 90 (45-117) U/L Troponin I 0.092 H* (0-0.045) ng/ml NT-Pro-B Natriuret Pep 365 (0-450) pg/ml Total Protein 7.9 (6.4-8.2) gm/dl Albumin 3.2 L (3.4-5.0) gm/dl Globulin 4.7 H (2.5-4.0) gm/dl Albumin/Globulin Ratio 0.7 L (0.9-2) TSH 218.000 H (0.300-4.500) uIu/ml Free T4 0.14 L (0.8-1.6) ng/dl Specimen Hemolysis Urine Color Dark Yellow Urine Appearance Clear (Clear) Urine pH 7.5 (4.5-7.5) Ur Specific [place] 1.025 (1.000-1.030) Urine Protein 4+ H (Negative) Urine Glucose (UA) Negative (Negative) Urine Ketones Trace H (Negative) Urine Blood 3+ H (Negative) Urine Nitrite Negative (Negative) Urine Bilirubin Negative (Negative) Urine Urobilinogen Negative (Negative) Ur Leukocyte Esterase Negative (Negative) Urine WBC (Auto) 1-5 (0-5) /hpf Urine RBC (Auto) 5-10 H (0-4) /hpf U Hyaline Cast (Auto) 10-30 H (0-5) /lpf U Epithel Cells (Auto) >30 H (0-5) /lpf Urine Bacteria (Auto) Negative (Negative) Ur Renal Epithelial Cell 0-5 (0-5) /lpf Imaging Data Radiologist's Impression: Radiology results as stated below per my review and the radiologist's interpretation: XR chest 1V portable CLINICAL HISTORY: weakness COMPARISON STUDY: 06/09/2018 FINDINGS: The heart is mildly enlarged. There is mild elevation of the interstitium. This may in part be accentuated due to the patient's large body habitus. Clinical correlation regards to congestive failure/fluid overload is recommended. There is no focal pulmonary consolidation. There are no pleural effusions. IMPRESSION: 1. No evidence of focal pulmonary consolidation 2. Mild elevation of the interstitium. While this may in part be accentuated due to the patient's large body habitus, mild congestive failure/fluid overload cannot be excluded. Electronically signed by: George Emerson M.D. 03/21/2019 9:54 PM Abdominal and pelvis CT: Pending. ECG Data Attestation: I personally reviewed and interpreted this ECG as follows: Indication: + other (hypertension) Rate (beats per minute): 71 Rhythm: + sinus rhythm ECG Intervals/blocks: + First degree AV block ECG ST segments: + T-wave inversions (lateral); no ST elevation ECG Findings: + Other (QTC is 465); no PVCs Comparison ECG Date: from (06/09/18) Change: the following changes noted (T-wave inversions are more pronounced and have progressed) Blood Pressure Blood Pressure Findings: Elevated blood pressure Blood Pressure Disposition: further management by hospitalist [facility] Narrative There is a mild leukocytosis. The elevated white count could be consistent with infection or the stress of his presentation. No concerning anemia. There was a normal platelet count. The patient does have some evidence for some renal insufficiency/dehydration with a creatinine of 1.91. Potassium slightly low at 3.3. Calcium low at 7.7. There were some elevations to the LFTs. TSH was quite high consistent with hypothyroidism, T4 hormone level is low. BNP was not elevated making CHF less likely. EKG shows a sinus rhythm with some T wave inversions which have progressed compared to previous EKGs. Cardiac enzyme testing x1 does show a slight troponin elevation, this could be consistent with cardiac injury or strain. Chest film shows cardiomegaly and some pulmonary congestion versus changes from his body habitus, there was no focal lung infiltrate. Urinalysis showed some contamination, no infection. Abdominal and pelvis CT is currently pending. The patient was given IV Tylenol for pain. He received oral amlodipine, oral lisinopril, oral metoprolol and oral levothyroxine. These medications were his typical meds he believes, he has not had them in at least a week. I think the patient's presentation is from his medication noncompliance. He appears hypothyroid, he is quite hypertensive. He has pedal edema which is worse than his baseline. I suspect his heavy legs complaint stems from the extra fluid and edema. He has an EKG which has changed compared to previous EKGs and he has a mild troponin elevation. With all his findings and complaints, I do think a hospital stay is warranted. He is not safe for discharge home. I did speak with the patient and case coordinator. The on-call hospitalist was consulted. Impression & Plan Uncontrolled hypertension, Acute electrocardiogram changes, Elevated troponin, Edema, Hypothyroidism, Noncompliance with medications Discharge Plan Visit Data Chief Complaint: Pain (Generalized) Stated Complaint: PAIN/DISCOMFORT WAIST DOWN, BALANCE ISSUE ED Provider: Andrew Antunez Discharge Problem: Uncontrolled hypertension, Acute electrocardiogram changes, Elevated troponin, Edema, Hypothyroidism, Noncompliance with medications Patient Disposition: Admitted As Inpatient Forms Stand Alone Forms: My [facility] Prescriptions Prescriptions: No Action chlorthalidone 25 mg Tablet 25 mg PO DAILY RF: 0 amlodipine 5 mg Tablet 5 mg PO DAILY RF: 0 levothyroxine 200 mcg Tablet 200 mcg PO DAILY RF: 0 aspirin [Aspir-81] 81 mg Tablet,Delayed Release (Dr/Ec) 81 mg PO DAILY RF: 0 lisinopril 10 mg Tablet 0 mg PO DAILY RF: 0 metoprolol tartrate 50 mg Tablet 0 mg PO BID RF: 0 Robitussin Cough and Cold CF 2.5-5-50 mg/5 mL Liquid 10 ml PO Q4 PRN (Reason: Cough) RF: 0 [place] Plus Cold/CoughFm 2-5-10-325 mg Capsule 2 cap PO UD PRN (Reason: Cold Symptoms) RF: 0 Referrals Referrals: Barbara Braun CRNP [Primary Care Provider] - Discharge Problem: Edema Qualifiers: Edema type: unspecified Qualified Code(s): R60.9 - Edema, unspecified Hypothyroidism Qualifiers: Hypothyroidism type: unspecified Qualified Code(s): E03.9 - Hypothyroidism, unspecified The scribe's documentation has been prepared under my direction and personally reviewed by me in its entirety. I confirm that the note above accurately reflects all work, treatment, procedures, and medical decision making performed by me.
[2019-03-21 22:29] LABS: Basophils # (auto) 0.05 K/uL (0-0.2); Basophils % (auto) 0.4 %; Eosinophils # (auto) 0.25 K/uL (0-0.5); Eosinophils % (auto) 2.2 %; Hematocrit (blood only) 51.4 % (42-52); Hemoglobin 17.9 g/dL (14.0-18.0); Immature Granulocytes # (auto) 0.05 K/uL (0.00-0.02); Immature Granulocytes % (auto) 0.4 %; Lymphocytes # (auto) 1.42 K/uL (1.2-3.4); Lymphocytes % (auto) 12.7 %; Mean Corpuscular Hemoglobin 31.7 pg (25-34); Mean Corpuscular Hgb Conc 34.8 g/dL (32-36); Mean Platelet Volume 10.5 fL (7.4-10.4); Monocytes % (auto) 9.9 %; Neutrophils # (auto) 8.27 K/uL (1.4-6.5); Neutrophils % (auto) 74.4 %; Nucleated RBC # (auto) 0.07 K/uL (0-0); Nucleated RBC % (auto) 0.6 %; Platelet Count 249 K/uL (130-400); RDW Standard Deviation 52.8 fL (36.4-46.3); Red Blood Count 5.65 M/uL (4.7-6.1); White Blood Count 11.14 K/uL (4.8-10.8)
[2019-03-21 22:40] LABS: Appearance Urine Clear (Clear); Bacteria Urine Automated Negative (Negative); Bilirubin Urine Negative (Negative); Blood Urine 3+ (Negative); Color Urine Dark Yellow; Epithelial Cell Urine Auto >30 /lpf (0-5); Glucose Urine UA Negative (Negative); Ketones Urine Trace (Negative); Leukocyte Esterase Urine Negative (Negative); Nitrite Urine Negative (Negative); Specific Gravity Urine 1.025 (1.000-1.030); Urobilinogen Urine Negative (Negative); pH Urine 7.5 (4.5-7.5)
[2019-03-21 22:55] LABS: Protein Urine 4+ (Negative)
[2019-03-21 22:56] LABS: Sulfosalicylic Acid Urine Positive (Negative)
[2019-03-21 22:57] LABS: Renal Epithelial Cells Urine 0-5 /lpf (0-5)
[2019-03-21 23:30] LABS: Albumin Level 3.2 gm/dl (3.4-5.0); BUN Creatinine Ratio 9.8 (10-20); Calcium 7.7 mg/dl (8.5-10.1); Creatinine Clr Calc Pharmacy 72.3 ml/min; Est GFR (African American) 47.3; Est GFR (Non-African American) 40.8; Magnesium 2.1 mg/dl (1.8-2.4); Potassium 3.3 mmol/L (3.5-5.1)
[2019-03-21 23:32] LABS: Bilirubin,Total 0.5 mg/dl (0.2-1); Total Protein 7.9 gm/dl (6.4-8.2)
[2019-03-21 23:36] LABS: Troponin I 0.092 ng/ml (0-0.045)
[2019-03-21 23:43] LABS: Albumin Globulin Ratio 0.7 (0.9-2); Globulin 4.7 gm/dl (2.5-4.0)
[2019-03-21] MEDS ORDERED: LEVOTHYROXINE SODIUM 200 MCG TABLET PO STA (23:46)
[2019-03-22 00:08] LABS: T4 Free Thyroxine 0.14 ng/dl (0.8-1.6)
[2019-03-22] MEDS ORDERED: FUROSEMIDE 40 MG/4 ML VIAL IV STA (00:09)
[2019-03-22] MEDS ORDERED: HydrALAZINE HCL 20 MG/ML VIAL IV STA (00:09)
--- NOTE | 2019-03-22 01:13 | History & Physical Report ---
Date of Service March 22, 2019 Assessment & Plan (1) Elevated troponin: Mr. Pandya is a 48-year-old male with a past medical history of hypertension, thyroid cancer s/p thyroidectomy, and CKD stage III who presented to the emergency department due to bilateral leg swelling. ED course: 1g IV acetaminophen, 50 mg oral metoprolol tartrate, 5 mg oral lisinopril, 5 mg oral amlodipine, 200 mcg oral levothyroxine, 40 mg IV Lasix, 5 mg IV hydralazine Elevated troponin -Admitted to telemetry -Patient denies chest pain -Chart lists myocardial infarction in his medical history, however patient denies this, and also states that he has never had a stress test or cardiac cath -EKG with nonspecific ST wave changes in lateral leads -Initial troponin elevated at 0.092 -Low suspicion that this represents ACS, however will continue to trend troponin every 6 hours and order an echocardiogram Elevated TSH/hypothyroidism -Patient with a history of thyroid cancer, s/p thyroidectomy and on levothyroxine -Has not been taking medications for > 1 week -TSH elevated at 218, with a free T4 of 0.14 -This is likely the cause of his bilateral leg edema and transaminitis -Continue home 200 mcg of levothyroxine B/L Leg swelling -non-tender, not erythematous - examination not consistent w/DVT -suspect this is related to thyroid myxedema as opposed to CHF -BNP WNL, ECHO in 2018 showed LVH and preserved EF Transaminitis -LFTs elevated with an AST of 241 and ALT of 144 -Patient denies a history of alcohol use -Likely related to noncompliance with Synthroid -CT abdomen and pelvis does also show a fatty liver -Repeat LFTs ordered for tomorrow a.m. ?Acute kidney injury on the background of CKD stage III -Patient reportedly follows with Dr. San -Per review of chart, patient's baseline has been between 1.6 and 1.7 in 2018 -Creatinine 1.91 on admission, unsure if this represents an TIFFANY, or if this is patient's new baseline -We will hold home chlorthalidone and lisinopril for now -Repeat BMP in the morning -Hold nephrotoxic agents Uncontrolled hypertension -Patient's blood pressure was elevated to 188/112 on arrival -Related to medication noncompliance -Continue home amlodipine and metoprolol tartrate. Chlorthalidone and lisinopril held as above. Cough -suspect this is post-viral cough -CXR w/out evidence for infection, saturating well on room air -tessalon perles ordered prn for cough and albuterol inhaler prn for wheeze CODE STATUS: Full DVT prophylaxis: 5000 mg subcutaneous heparin twice daily Disposition: Admit to telemetry. Patient hoping for discharge before March 25, as this is when he needs to return to work (2) Uncontrolled hypertension: (3) Hypothyroidism: (4) Noncompliance with medications: (5) Myxedema: (6) Acute electrocardiogram changes: History of Present Illness Chief Complaint: Bilateral leg swelling Primary Care Provider: BALDO Arora Mr. Pandya is a 48-year-old male with a past medical history of hypertension, thyroid cancer s/p thyroidectomy, and CKD stage III who presented to the emergency department due to bilateral leg swelling. The patient reports that he does not have a history of this, but notes that he has had fluid buildup in his legs, resulting in him having difficulty walking, because his legs feel heavy. He reports that he ran out of all of his medications approximately 1 week ago, and was told that he had to have a visit with his PCP in order to refill his medications, which he has not done. He denies any chest pain or shortness of breath. He states that he had a sinus infection and bronchitis approximately 1 week ago. He states his symptoms have been improving, however he does remain with a slight dry cough, and occasional wheeze. He denies any shortness of breath with lying flat. He states that his legs are not overtly painful, however feel heavy. He denies any prior history of an NM or stroke. He reports that he has never had a stress test or cardiac catheterization. With regards to his kidney disease, he states that he follows with Dr. San, and is unsure of the cause of his kidney disease. Allergies Allergy/AdvReac Type Severity Reaction Status Date / Time No Known Allergies Allergy Unverified 03/21/19 21:54 Home Medications Home Medications Medication Instructions Recorded Confirmed Type amlodipine 5 mg PO DAILY 06/09/18 03/21/19 History aspirin [Aspir-81] 81 mg PO DAILY 06/09/18 03/21/19 History chlorthalidone 25 mg PO DAILY 06/09/18 03/21/19 History levothyroxine 200 mcg PO DAILY 06/09/18 03/21/19 History ipoypfmvl-JG-YT-acetaminophen 2 cap PO UD PRN 03/21/19 03/21/19 History [Ariane-[place] Plus Cold/CoughFm] lisinopril 0 mg PO DAILY 03/21/19 03/21/19 History metoprolol tartrate 0 mg PO BID 03/21/19 03/21/19 History siftonejfngvx-GG-gxgfleykbpz 10 ml PO Q4 PRN 03/21/19 03/21/19 History [Robitussin Cough and Cold CF] Past Med/Surg History Medical History Hypertension (Chronic) Kidney stone (Resolved) Myocardial infarct (Inactive) Surgical History S/P thyroidectomy Family History Other Hypertension Social History Preferred Language: Japanese Communication Ability: Effective Visual Impairment: No Limitations Hearing Ability: Normal 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 Beliefs That Will Affect Care: None marital status: Current Living Situation: Parent and Family current occupational status: employed Other Information That Helps Us Care for You: No Feels Safe at Home: Yes Safety Concerns: Feels Safe At This Time Smoking Status: Former smoker Do You Dip or Chew Tobacco: No ; Second Hand Exposure: No ; Tobacco Cessation Education Requested by Patient: No Hx Alcohol Use: Yes Hx Substance Use: No Review of Systems Constitutional: no fever, no chills, no fatigue and no anorexia Ear, Nose, Mouth, Throat: no nasal congestion and no sore throat Respiratory: + cough and + wheezing; no dyspnea and no pain with cough Cardiovascular: no chest pain, no palpitations, no lightheadedness, no syncope, no edema and no calf pain Gastrointestinal: no abdominal pain, no nausea, no vomiting and no change in bowel habits Genitourinary: no dysuria and no difficulty urinating Musculoskeletal: no back pain Integumentary: no rash Physical Exam Constitutional: WD/WN, vitals as above + morbidly obese Eyes: PERRL, conjunctivae normal, anicteric sclerae ENMT: external ear and nose normal, oropharynx normal Respiratory: normal respiratory effort, lungs clear to auscultation Cardiovascular: Rate/Rhythm: regular rate and regular rhythm Vessels: posterior tibial pulses present and dorsalis pedis pulses present Extremities: normal capillary refill and + edema; no calf tenderness 2+ edema bilaterally Gastrointestinal (Abdomen): Percussion/Palpation: abdomen soft; no guarding and abdomen not rigid Musculoskeletal: no cyanosis or clubbing, extremities motor strength 5/5 Neurologic: PERRL, EOMI, accommodation nl, no face palsy, no dysarthria Psychiatric: A+Ox3, euthymic affect Results & Data Vital Signs (Past 12 Hours) Vital Signs Temp Pulse Pulse Resp BP BP Pulse Ox 03/22/19 00:12 60 18 163/120 H 95 03/21/19 22:30 61 19 146/102 H 92 03/21/19 22:00 74 20 158/109 H 92 03/21/19 21:45 91 03/21/19 21:03 36.8 C 76 20 188/112 H 96 Code Status & VTE Plan VTE Prophylaxis Plan VTE Prophylaxis will be ordered: Yes Supervising Physician Co-Signing Physician Notes Attending addendum: I have physically seen this patient, have supervised the medical residents activities, and agree with the H&P unless as otherwise noted. Assessment and Plan: Elevated troponin- The patient will be admitted to telemetry for serial cardiac enzymes, serial EKG's, cardiac rhythm monitoring and a 2-D echocardiogram with Dopplers. Check hemoglobin A1c and fasting lipid panel near. Metoprolol tartrate 50 mg p.o. twice daily, amlodipine 5 mg p.o. daily and lisinopril 5 mg p.o. daily. Thyroid myxedema- Patient suspected to be medically noncompliant with thyroid medication. Resume levothyroxine. Consider adding liothyronine Treat symptomatically otherwise. Transaminitis- AST 241, ALT 144. CT abdomen and pelvis shows fatty liver. May be an element related to thyroid myxedema as well. Follow laboratory serially. Remainder of orders and notations as noted. Resident Activity Tracking Resident Involvement: Resident Care Provided Care Provided: Adult Hospital Medicine (1) Hypothyroidism Hypothyroidism type: unspecified Qualified Code(s): E03.9 - Hypothyroidism, unspecified
[2019-03-22] MEDS ORDERED: ACETAMINOPHEN 325 MG TAB PO PRN (02:06)
[2019-03-22] MEDS ORDERED: BENZONATATE 100 MG CAPSULE PO PRN (02:06)
[2019-03-22 04:22] LABS: Basophils # (auto) 0.02 K/uL (0-0.2); Basophils % (auto) 0.2 %; Eosinophils # (auto) 0.31 K/uL (0-0.5); Hematocrit (blood only) 48.4 % (42-52); Hemoglobin 16.8 g/dL (14.0-18.0); Immature Granulocytes # (auto) 0.03 K/uL (0.00-0.02); Immature Granulocytes % (auto) 0.3 %; Lymphocytes # (auto) 1.78 K/uL (1.2-3.4); Lymphocytes % (auto) 17.4 %; Mean Corpuscular Hemoglobin 31.1 pg (25-34); Mean Corpuscular Hgb Conc 34.7 g/dL (32-36); Mean Corpuscular Volume 89.5 fL (80-100); Mean Platelet Volume 10.9 fL (7.4-10.4); Monocytes # (auto) 0.85 K/uL (0.11-0.59); Monocytes % (auto) 8.3 %; Neutrophils # (auto) 7.23 K/uL (1.4-6.5); Neutrophils % (auto) 70.8 %; Platelet Count 231 K/uL (130-400); Red Blood Count 5.41 M/uL (4.7-6.1); White Blood Count 10.22 K/uL (4.8-10.8)
[2019-03-22] MEDS: ALBUTEROL HFA 8 GM INHALER INH PRN ×2 (04:31→16:08)
[2019-03-22 04:57] LABS: Albumin Globulin Ratio 0.7 (0.9-2); BUN Creatinine Ratio 9.7 (10-20); Bilirubin,Total 0.5 mg/dl (0.2-1); Calcium 7.2 mg/dl (8.5-10.1); Creatinine Clr Calc Pharmacy 72.1 ml/min; Est GFR (African American) 47.6; Est GFR (Non-African American) 41.1; Globulin 4.5 gm/dl (2.5-4.0); Total Protein 7.5 gm/dl (6.4-8.2); Troponin I 0.119 ng/ml (0-0.045)
--- NOTE | 2019-03-22 06:02 | CT Scan Report ---
CT abd pelvis wo con CT DOSE: 1782.89 mGy.cm HISTORY: Pain. Mass. low abd pain, poss divertic or mass, high creat TECHNIQUE: Multiaxial CT images of the abdomen and pelvis were performed without contrast. A dose lo wering technique was utilized adhering to the principles of ALARA. COMPARISON STUDY: None. FINDINGS: Lung bases are clear. Liver spleen and pancreas are unremarkable. Nonobstructive bowel jerod lion. Normal appendix. No free fluid within the pelvic cul-de-sac. Bladder is midline. IMPRESSION: No acute process of the abdomen or pelvis The above report was generated using voice recognition software. It may contain grammatical, syntax or spelling errors. Electronically signed by: Bassam Kimbrough M.D. 03/22/2019 6:01 AM
[2019-03-22] MEDS: LEVOTHYROXINE SODIUM 200 MCG TABLET PO SCH (06:13)
[2019-03-22] MEDS: ASPIRIN 81 MG ECTAB PO SCH (09:08)
[2019-03-22] MEDS: AMLODIPINE BESYLATE 5 MG TAB PO SCH (09:09)
[2019-03-22] MEDS: METOPROLOL TARTRATE 100 MG TAB PO SCH ×2 (09:09→21:15)
[2019-03-22] MEDS: HEPARIN SOD 5,000 UNIT/0.5 ML VIAL SQ SCH ×2 (09:10→21:16)
--- NOTE | 2019-03-22 14:08 | Hospitalist Progress Note ---
Date of Service March 22, 2019 Assessment & Plan (1) Myxedema: -Patient with a history of thyroid cancer, s/p thyroidectomy and on levothyroxine -Has not been taking medications for > 1 week - per past medical records patient has a history of difficulty complying with medication regimens -TSH elevated at 218, with a free T4 of 0.14 -This is likely the cause of his bilateral leg edema and transaminitis -Continue home 200 mcg of levothyroxine - Bradycardic on the monitor (2) S/P thyroidectomy: for history of thyroid cancer (3) Hypothyroid: As above (4) Acute electrocardiogram changes: (5) Elevated troponin: -EKG with nonspecific ST wave changes in lateral leads -Initial troponin peaked at 1.19 -echo without RWMA, normal EF - no chest pain or other concerning ACS symptoms (6) Uncontrolled hypertension: -Patient's blood pressure was elevated to 188/112 on arrival -Related to medication noncompliance -Continue home amlodipine and metoprolol tartrate. Chlorthalidone and lisinopril held for kidney function (7) Noncompliance with medications: (8) Transaminitis: -LFTs elevated with an AST of 241 and ALT of 144 on admission and trending down -Patient denies a history of alcohol use -Likely related to noncompliance with Synthroid -CT abdomen and pelvis does also show a fatty liver (9) Chronic kidney disease: Acute on chronic kidney injury with CKD III -Patient follows with Dr. San -Per review of chart, patient's baseline has been between 1.6 and 1.7 in 2018 -Creatinine 1.91 on admission, unsure if this represents an TIFFANY, or if this is patient's new baseline -Continue to hold home chlorthalidone and lisinopril for now -Hold nephrotoxic agents (10) Cough: -suspect this is post-viral cough -CXR w/out evidence for infection, saturating well on room air -analia gupta ordered prn for cough and albuterol inhaler prn for wheeze (11) DVT prophylaxis: 5000 mg subcutaneous heparin twice daily Subjective Mr. Pandya is feeling better. Legs are less heavy today. No chest pain or shortness of breath ROS Constitutional: no chills, aches, sweats or fever Respiratory: no sob,cough, sputum, or wheezing Cardiac: no chest pain, palpitations, edema, orthopnea or lightheadedness GI: no abdominal pain, nausea, vomiting, diarrhea or constipation : no dysuria or hesitancy Extremities: no joint pain or weakness Skin: no rash All other systems reviewed and negative Physical Exam Physical Exam: General: no distress Eyes: normal inspection, PERLL Respiratory: chest non tender, clear to auscultation, normal breath sounds, no respiratory distress, no accessory muscle use Cardiac: regular rate and rhythm, no rub or gallop, no murmur, non pitting lower extremity edema GI/: active bowel sounds, no abd pain or tenderness, soft, non distended Extremities: normal range of motion, normal strength, non tender Neuro/Psych: alert and oriented x 3, normal mood and affect Skin: normal color, dry Results & Data Vital Signs (Past 12 Hours) Vital Signs Temp Pulse Pulse Pulse Resp BP Pulse Ox 03/22/19 11:54 37.1 C 67 18 144/93 H 93 03/22/19 10:00 68 03/22/19 08:08 35.7 C L 52 L 18 145/93 H 92 03/22/19 04:30 36.4 C L 56 L 20 142/82 H 92 PG Care Time/CCT Total # of Minutes Spent Total Time Spent with Patient: Total time spent is greater than 50% in coordination of care (as documented) at patient's floor/unit and/or counseling patient:
--- NOTE | 2019-03-23 04:32 | Billing Data ---
Coding Level of Care Code 54171 Initial Inpt Care Lvl 3
[2019-03-23] MEDS: LEVOTHYROXINE SODIUM 200 MCG TABLET PO SCH (06:00)
[2019-03-23 06:44] LABS: Basophils # (auto) 0.05 K/uL (0-0.2); Basophils % (auto) 0.4 %; Eosinophils % (auto) 3.5 %; Hematocrit (blood only) 50.6 % (42-52); Hemoglobin 17.8 g/dL (14.0-18.0); Immature Granulocytes # (auto) 0.06 K/uL (0.00-0.02); Immature Granulocytes % (auto) 0.5 %; Lymphocytes % (auto) 17.5 %; Mean Corpuscular Hgb Conc 35.2 g/dL (32-36); Monocytes # (auto) 1.12 K/uL (0.11-0.59); Monocytes % (auto) 9.8 %; Neutrophils # (auto) 7.78 K/uL (1.4-6.5); Neutrophils % (auto) 68.3 %; Platelet Count 259 K/uL (130-400); RDW Standard Deviation 53.2 fL (36.4-46.3); Red Blood Count 5.56 M/uL (4.7-6.1); White Blood Count 11.41 K/uL (4.8-10.8)
[2019-03-23 07:27] LABS: Albumin Level 3.4 gm/dl (3.4-5.0); BUN Creatinine Ratio 9.8 (10-20); Bilirubin,Total 0.7 mg/dl (0.2-1); Calcium 7.9 mg/dl (8.5-10.1); Creatinine Clr Calc Pharmacy 66.5 ml/min; Est GFR (African American) 43.2; Est GFR (Non-African American) 37.2; Total Protein 8.2 gm/dl (6.4-8.2)
[2019-03-23] MEDS ORDERED: SODIUM CHLORIDE 0.9% 1000ML 1,000 ML IV SCH (08:00)
[2019-03-23] MEDS: ASPIRIN 81 MG ECTAB PO SCH (09:00)
[2019-03-23] MEDS: AMLODIPINE BESYLATE 5 MG TAB PO SCH (09:00)
[2019-03-23] MEDS: METOPROLOL TARTRATE 100 MG TAB PO SCH ×2 (09:00→21:00)
[2019-03-23] MEDS: HEPARIN SOD 5,000 UNIT/0.5 ML VIAL SQ SCH ×2 (09:01→21:00)
--- NOTE | 2019-03-23 10:26 | Cardiology Consultation ---
Date of Consultation March 23, 2019 Assessment & Plan (1) Edema of both legs: He describes acute onset of bilateral edema, he certainly has some edema but now he tells me that he feels much better since he came in but I do not believe he has lost any fluid. Perhaps from being at bedrest it is redistributed, but he still has edema. I do not think the edema occurred as quickly as he says, perhaps he just noticed it. I think he is volume overloaded. He is receiving IV fluids, although he has kidney disease am not sure that he should not be receiving diuretics. (2) Elevated troponin: He has a slightly elevated troponin (peak 0.119), but he is also markedly hypothyroid. His echocardiogram is unremarkable and I am not sure of the significance of the troponin. His electrocardiograms also somewhat abnormal and that is newly evident compared to May of this year. I think we will need to do some type of test for ischemia at some point, he does have a lot of risk factors for coronary artery disease, but he does not have symptoms and I do not think this represents an acute coronary syndrome. I would not investigate this right now since he has other issues, but we probably should do that at some point. (3) Hypothyroid: He is markedly hypothyroid, his TSH is 218. His hypothyroid condition may be causing a lot of his current difficulty. (4) Uncontrolled hypertension: He had uncontrolled hypertension on admission, although today that is much improved. He does have a left ventricular hypertrophy which is not surprising given his weight and hypertension. (5) Chronic kidney disease: He has chronic kidney disease and his creatinine is around 2, which it was in May of this year as well. I do not think this is dehydration I would not give fluid hydration. If anything his presenting creatinine was little bit improved compared to before although now it is back to where it was in the early part of this year. (6) Hypercholesteremia: His cholesterol is markedly elevated as is his triglyceride measurement. I think this might be due to his hypothyroidism. He may need treatment for it, especially if he has coronary artery disease, but I would treat his thyroid condition first. History of Present Illness Reason for Consultation: Leg edema Attending Physician: Cortes Walton MD History of Present Illness This is a 48-year-old male who has a history of hypertension and chronic kidney disease as well as thyroidectomy for thyroid cancer. He presented with bilateral leg swelling. He is markedly obese, and he tells me that his weight has probably been increasing but he has not been checking his weight. He thinks his weight has been going up because he "does not have a thyroid". He tells me that he did not notice his leg swelling and tell the day he came into the hospital, on that day he felt like his legs were made of lead and he noticed that they were swollen. He tells me that he did not notice them swollen at all before that. 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 and has not had difficulty with exertion doing those types of things. He does not have exertional chest discomfort, he has not had lightheadedness dizziness or palpitations. Evaluation here shows borderline troponin elevation, a markedly elevated TSH, markedly elevated triglycerides and cholesterol. He also has some electrocardiographic abnormalities in the lateral leads. He was admitted, he is receiving IV fluids. His creatinine is elevated. Chest x-ray on admission shows possible mild fluid overload, his BNP was not elevated but was near the top of the normal range. Allergies Allergy/AdvReac Type Severity Reaction Status Date / Time No Known Allergies Allergy Unverified 03/21/19 21:54 Home Medications Home Medications Medication Instructions Recorded Confirmed Type amlodipine 5 mg PO DAILY 06/09/18 03/21/19 History aspirin [Aspir-81] 81 mg PO DAILY 06/09/18 03/21/19 History chlorthalidone 25 mg PO DAILY 06/09/18 03/21/19 History levothyroxine 200 mcg PO DAILY 06/09/18 03/21/19 History emzkxpmzu-GN-MX-acetaminophen 2 cap PO UD PRN 03/21/19 03/21/19 History [Ariane-[place] Plus Cold/CoughFm] lisinopril 0 mg PO DAILY 03/21/19 03/21/19 History metoprolol tartrate 0 mg PO BID 03/21/19 03/21/19 History mbjobpnibmnvg-JM-lfrmqkzsbmq 10 ml PO Q4 PRN 03/21/19 03/21/19 History [Robitussin Cough and Cold CF] Patient History Medical History Hypertension (Chronic) Kidney stone (Resolved) Myocardial infarct (Inactive) Surgical History S/P thyroidectomy Family History Other Hypertension Social History Preferred Language: Brazilian Communication Ability: Effective Visual Impairment: No Limitations Hearing Ability: Normal 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 Manager Required: No Beliefs That Will Affect Care: None marital status: Current Living Situation: Parent and Family current occupational status: employed Other Information That Helps Us Care for You: No Feels Safe at Home: Yes Safety Concerns: Feels Safe At This Time Smoking Status: Former smoker Do You Dip or Chew Tobacco: No ; Second Hand Exposure: No ; Tobacco Cessation Education Requested by Patient: No Hx Alcohol Use: Yes Hx Substance Use: No Review of Systems Review of Systems: All systems reviewed & are unremarkable except as noted in HPI & below Physical Exam Physical Exam: Constitutional: Alert, cooperative and in no distress. He is markedly obese HEENT: Unremarkable Neck: No jugular venous distention, carotid pulses are normal and equal bilaterally without bruits. Pulmonary: Clear to auscultation bilaterally. Cardiac: Regular rhythm with no murmur, gallop or rub. Abdomen: Soft, nontender with normal bowel sounds. Extremities: +2 bilateral pretibial pitting edema. Distal pulses intact. Neurologic: No focal findings. Gait is steady. Skin: No rash, ecchymoses or petechiae. Results & Data Vital Signs (Past 12 Hours) Vital Signs Temp Pulse Pulse Pulse Resp BP Pulse Ox 03/23/19 07:14 36.3 C L 58 L 19 126/76 94 03/23/19 04:08 36.5 C 55 L 20 149/92 H 95 03/22/19 23:28 62 03/22/19 23:05 36.4 C L 58 L 20 142/82 H 96 Laboratory Results Abnormal lab results 03/22/19 03/23/19 03/23/19 Range/Units 10:10 06:23 06:23 WBC 11.41 H (4.8-10.8) K/uL RDW Std Deviation 53.2 H (36.4-46.3) fL RDW Coeff of [place] 16.0 H (11.5-14.5) % MPV 11.0 H (7.4-10.4) fL Immature Gran # (Auto) 0.06 H (0.00-0.02) K/uL Neut # (Auto) 7.78 H (1.4-6.5) K/uL [place] # (Auto) 1.12 H (0.11-0.59) K/uL BUN 20 H (7-18) mg/dl Creatinine 2.06 H (0.6-1.4) mg/dl BUN/Creatinine Ratio 9.8 L (10-20) Glucose 108 H (70-99) mg/dl Calcium 7.9 L (8.5-10.1) mg/dl ALT 141 H (12-78) U/L Troponin I 0.102 H* (0-0.045) ng/ml Triglycerides 735 H (0-150) mg/dl Cholesterol 359 H (0-200) mg/dl Diagnostic Findings His electrocardiogram on admission shows sinus rhythm with lateral T wave inversion possibly consistent with ischemia. He had an electrocardiogram May 2018 which did not show these changes. His most recent electrocardio gram from March 23, 2019 at 11:53 AM shows continued lateral T wave abnormalities, similar to the last one. eCHOCARDIOGRAPHY DONE march 22, 2019 SHOWS NORMAL LEFT VENTRICULAR SYSTOLIC FUNCTION WITH MODERATE CONCENTRIC LEFT VENTRICULAR HYPERTROPHY AND NO WALL MOTION ABNORMALITIES. Telemetry: Sinus rhythm, rate 60 to 70 bpm PG Care Time/CCT Total # of Minutes Spent Total Time Spent with Patient: Total time spent is greater than 50% in coordination of care (as documented) at patient's floor/unit and/or counseling patient:
[2019-03-23 10:49] LABS: Potassium 2.8 mmol/L (3.5-5.1)
[2019-03-23 10:53] LABS: Bilirubin Direct 0.1 mg/dl (0-0.2)
[2019-03-23] MEDS ORDERED: POTASSIUM CHLORIDE 20 MEQ TABCR PO SCH (11:30)
[2019-03-23] MEDS: ATORVASTATIN 40 MG TAB PO SCH (12:36)
[2019-03-23] MEDS: CALCIUM 600MG + VIT D 400 IU TAB PO SCH ×2 (12:36→20:59)
--- NOTE | 2019-03-23 16:42 | Hospitalist Progress Note ---
Date of Service March 23, 2019 Assessment & Plan (1) Myxedema: -Patient with a history of thyroid cancer, s/p thyroidectomy and on levothyroxine -Has not been taking medications for > 1 week - per past medical records patient has a history of difficulty complying with medication regimens -TSH elevated at 218, with a free T4 of 0.14 -This is likely the cause of his bilateral leg edema and transaminitis -Continue home 200 mcg of levothyroxine (2) S/P thyroidectomy: for history of thyroid cancer (3) Hypothyroidism: as above (4) Elevated troponin: -EKG with nonspecific ST wave changes in lateral leads -Troponin peaked at 1.19 -echo without RWMA, normal EF - no chest pain or other concerning ACS symptoms - consulted cardiology - recommend future ischemic workup but can wait until after patient is through his acute issue (5) Acute electrocardiogram changes: As above (6) Uncontrolled hypertension: -Patient's blood pressure was elevated to 188/112 on arrival -Related to medication noncompliance -Continue home amlodipine and metoprolol tartrate. Chlorthalidone and lisinopril held for kidney function. Pressures have been elevated but not quite as high as admission (7) Noncompliance with medications: (8) Hyperlipidemia: Cholesterol 359, Triglycerides 735 Patient reports he had been on simvastatin but stopped taking it a week ago Will start atorvastatin 80 mg consult data center operator I did spend time discussing lifestyle interventions to which Mr. Pandya was very receptive and reported interest in making these changes. We did discuss that if he is unable to decrease his triglycerides through lifestyle, he will likely have to add a fibrate to his regimen. Also discussed risks of pancreatitis and cardiovascular risk given his lipids (9) Transaminitis: slight improvement Patient also has fatty liver on CT no history of alcohol (10) Chronic kidney disease: Acute on chronic kidney injury with CKD III -Patient follows with Dr. San -Per review of chart, patient's baseline has been between 1.6 and 1.7 in 2018 -Creatinine 1.91 on admission, unsure if this represents an TIFFANY, or if this is patient's new baseline. Today with small increase in creatinine to 2.06. He does have record of being 2 in May last year but this was an ED visit after being ill so not sure if its an indicator of baseline range. -Continue to hold home chlorthalidone and lisinopril for now - if creat is better tomorrow, will resume -Hold nephrotoxic agents (11) Cough: -suspect this is post-viral cough -CXR w/out evidence for infection, saturating well on room air -analia gupta ordered prn for cough and albuterol inhaler prn for wheeze (12) Hypokalemia: Likely secondary to hypothyroidism 2.8 today - replaced repeat cmp am (13) DVT prophylaxis: heparin subq Subjective Mr. Pandya has no chest pain, sob or other pain today. He feels the swelling in his lower extremities is improving ROS Constitutional: no chills, aches, sweats or fever Respiratory: no sob,cough, sputum, or wheezing Cardiac: no chest pain, palpitations, orthopnea or lightheadedness GI: no abdominal pain, nausea, vomiting, diarrhea or constipation : no dysuria or hesitancy Extremities: no joint pain or weakness Skin: no rash All other systems reviewed and negative Physical Exam Physical Exam: General: no distress Eyes: normal inspection, PERLL Respiratory: chest non tender, clear to auscultation, normal breath sounds, no respiratory distress, no accessory muscle use Cardiac: regular rate and rhythm, no rub or gallop, no murmur, no edema, no jvd GI/: active bowel sounds, no abd pain or tenderness, soft, non distended Extremities: normal range of motion, normal strength, non tender Neuro/Psych: alert and oriented x 3, normal mood and affect Skin: normal color, dry Results & Data Vital Signs (Past 12 Hours) Vital Signs Temp Pulse Resp BP BP Pulse Ox 03/23/19 15:48 36.7 C 64 20 149/97 H 94 03/23/19 10:55 37.1 C 67 22 129/73 92 03/23/19 07:14 36.3 C L 58 L 19 126/76 94 PG Care Time/CCT Total # of Minutes Spent Total Time Spent with Patient: Total time spent is greater than 50% in coordination of care (as documented) at patient's floor/unit and/or counseling patient: (1) Hypothyroidism Hypothyroidism type: unspecified Qualified Code(s): E03.9 - Hypothyroidism, unspecified
[2019-03-24 05:40] LABS: Estimated Average Glucose 128 mg/dl; Hemoglobin A1C 6.1 % (4.5-5.6)
[2019-03-24] MEDS: LEVOTHYROXINE SODIUM 200 MCG TABLET PO SCH (06:10)
[2019-03-24] MEDS: ALBUTEROL HFA 8 GM INHALER INH PRN (07:39)
[2019-03-24] MEDS: METOPROLOL TARTRATE 100 MG TAB PO SCH (07:40)
[2019-03-24] MEDS: ASPIRIN 81 MG ECTAB PO SCH (07:40)
[2019-03-24] MEDS: AMLODIPINE BESYLATE 5 MG TAB PO SCH (07:40)
[2019-03-24] MEDS: ATORVASTATIN 40 MG TAB PO SCH (07:40)
[2019-03-24] MEDS: CALCIUM 600MG + VIT D 400 IU TAB PO SCH (07:40)
[2019-03-24] MEDS: HEPARIN SOD 5,000 UNIT/0.5 ML VIAL SQ SCH (07:42)
[2019-03-24 07:52] LABS: Basophils # (auto) 0.04 K/uL (0-0.2); Basophils % (auto) 0.4 %; Eosinophils % (auto) 3.1 %; Hematocrit (blood only) 47.3 % (42-52); Hemoglobin 16.4 g/dL (14.0-18.0); Immature Granulocytes # (auto) 0.03 K/uL (0.00-0.02); Immature Granulocytes % (auto) 0.3 %; Lymphocytes # (auto) 1.35 K/uL (1.2-3.4); Lymphocytes % (auto) 13.9 %; Mean Corpuscular Hemoglobin 31.5 pg (25-34); Mean Corpuscular Hgb Conc 34.7 g/dL (32-36); Mean Corpuscular Volume 90.8 fL (80-100); Mean Platelet Volume 10.4 fL (7.4-10.4); Monocytes # (auto) 1.31 K/uL (0.11-0.59); Monocytes % (auto) 13.5 %; Neutrophils # (auto) 6.66 K/uL (1.4-6.5); Neutrophils % (auto) 68.8 %; Platelet Count 214 K/uL (130-400); RDW Coefficient of Variation 16.2 % (11.5-14.5); RDW Standard Deviation 53.9 fL (36.4-46.3); Red Blood Count 5.21 M/uL (4.7-6.1); White Blood Count 9.69 K/uL (4.8-10.8)
[2019-03-24 08:05] VITALS: BP 155/91; TEMP 97.5; O2SAT 95
[2019-03-24 08:43] LABS: Albumin Globulin Ratio 0.7 (0.9-2); Albumin Level 3.2 gm/dl (3.4-5.0); BUN Creatinine Ratio 11.6 (10-20); Bilirubin,Total 0.6 mg/dl (0.2-1); Calcium 8.2 mg/dl (8.5-10.1); Creatinine Clr Calc Pharmacy 73.8 ml/min; Est GFR (African American) 48.8; Est GFR (Non-African American) 42.1; Globulin 4.4 gm/dl (2.5-4.0); Potassium 3.1 mmol/L (3.5-5.1); Total Protein 7.6 gm/dl (6.4-8.2)
--- NOTE | 2019-03-24 11:32 | Discharge Summary ---
Date of Service March 24, 2019 Admission HPI Per Admitting Provider Mr. Pandya is a 48-year-old male with a past medical history of hypertension, thyroid cancer s/p thyroidectomy, and CKD stage III who presented to the emergency department due to bilateral leg swelling. The patient reports that he does not have a history of this, but notes that he has had fluid buildup in his legs, resulting in him having difficulty walking, because his legs feel heavy. He reports that he ran out of all of his medications approximately 1 week ago, and was told that he had to have a visit with his PCP in order to refill his medications, which he has not done. He denies any chest pain or shortness of breath. He states that he had a sinus infection and bronchitis approximately 1 week ago. He states his symptoms have been improving, however he does remain with a slight dry cough, and occasional wheeze. He denies any shortness of breath with lying flat. He states that his legs are not overtly painful, however feel heavy. He denies any prior history of an CO or stroke. He reports that he has never had a stress test or cardiac catheterization. With regards to his kidney disease, he states that he follows with Dr. San, and is unsure of the cause of his kidney disease. Admission Exam Per Admitting Provider Constitutional: WD/WN, vitals as above + morbidly obese Eyes: PERRL, conjunctivae normal, anicteric sclerae ENMT: external ear and nose normal, oropharynx normal Respiratory: normal respiratory effort, lungs clear to auscultation Cardiovascular: Rate/Rhythm: regular rate and regular rhythm Vessels: posterior tibial pulses present and dorsalis pedis pulses present Extremities: normal capillary refill and + edema; no calf tenderness 2+ edema bilaterally Gastrointestinal (Abdomen): Percussion/Palpation: abdomen soft; no guarding and abdomen not rigid Musculoskeletal: no cyanosis or clubbing, extremities motor strength 5/5 Neurologic: PERRL, EOMI, accommodation nl, no face palsy, no dysarthria Psychiatric: A+Ox3, euthymic affect Principal Diagnosis 1. Elevated cardiac enzymes of unclear etiology, requires further outpatient work-up 2. Hypothyroidism, secondary to medication noncompliance 3. Hypokalemia 4. uncontrolled hypertension 5. Hyperlipidemia 6. Chronic kidney disease, stage III Discharge Exam Gen: AAOx3, NAD, obese HEENT: neck supple, no JVD. MMM. Heart: RR, no murmurs Lungs: clear to auscultation in all [place]cam[place] Abd: soft, nontender, nondistended. Normal BS Neuro: awake, alert. Nonfocal Psych: appropriate mood and affect Ext: Trace edema, no clubbing or cyanosis Discharge Data Allergies Allergy/AdvReac Type Severity Reaction Status Date / Time No Known Allergies Allergy Unverified 03/21/19 21:54 Consultations 03/22/19 00:10 ED Decision to Admit Stat 03/22/19 02:06 Consult Case Management - Discharge Planning Routine 03/23/19 06:15 Consult Cardiology Routine Ordered Studies 03/21/19 23:33 CT abd pelvis wo con Urgent Hospital Course (1) Myxedema: -Patient with a history of thyroid cancer, s/p thyroidectomy and on levothyroxine -Has not been taking medications for > 1 week - per past medical records patient has a history of difficulty complying with medication regimens -TSH elevated at 218, with a free T4 of 0.14 -This is likely the cause of his bilateral leg edema and transaminitis -Continue home 200 mcg of levothyroxine (2) S/P thyroidectomy: for history of thyroid cancer (3) Hypothyroidism: as above (4) Elevated troponin: -EKG with nonspecific ST wave changes in lateral leads -Troponin peaked at 1.19 -echo without RWMA, normal EF - no chest pain or other concerning ACS symptoms - consulted cardiology - recommend future ischemic workup but can wait until after patient is through his acute issue (5) Acute electrocardiogram changes: As above (6) Uncontrolled hypertension: -Patient's blood pressure was elevated to 188/112 on arrival -Related to medication noncompliance -Continue home amlodipine and metoprolol tartrate. Chlorthalidone and lisinopril held for kidney function. 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 Pandya was very receptive and reported interest in making these changes. We did discuss that if he is unable to decrease his triglycerides through lifestyle, he will likely have to add a fibrate to his regimen. Also discussed risks of pancreatitis and cardiovascular risk given his lipids (9) Transaminitis: slight improvement Patient also has fatty liver on CT no history of alcohol (10) Chronic kidney disease: Acute on chronic kidney injury with CKD III -Patient follows with Dr. San -Per review of chart, patient's baseline has been between 1.6 and 1.7 in 2018 -Creatinine 1.91 on admission, unsure if this represents an TIFFANY, or if this is patient's new baseline. Today with small increase in creatinine to 2.06. He does have record of being 2 in May last year but this was an ED visit after being ill so not sure if its an indicator of baseline range. -Continue to hold home chlorthalidone and lisinopril for now - if creat is better tomorrow, will resume -Hold nephrotoxic agents Discharge, chlorthalidone and lisinopril were held. Patient was started on 20 mEq of potassium. Should plan for a recheck with his primary care provider before restarting these medications. (11) Cough: -suspect this is post-viral cough -CXR w/out evidence for infection, saturating well on room air -tessalon perles ordered prn for cough and albuterol inhaler prn for wheeze (12) Hypokalemia: Likely secondary to hypothyroidism 2.8 today - replaced repeat cmp am (13) DVT prophylaxis: heparin subq Total Time Total Time Spent Total Time Spent (In Minutes): More than 30 minutes was taken in the preparation of this discharge. Total Time Includes: Examination of the Patient, Discharge Planning and Medication Reconciliation Discharge Plan Discharge Items Patient Disposition: Home - Self-Care Reason For Visit: ELEVATED TROP,UNCONTROLLED HYPERTENSION,TIFFANY Discharge Diagnosis: 1. Elevated cardiac enzymes of unclear etiology, requires further outpatient work-up 2. Hypothyroidism, secondary to medication noncompliance 3. Hypokalemia 4. uncontrolled hypertension 5. Hyperlipidemia 6. Chronic kidney disease, stage III Condition on Discharge: Good Activity: Resume your previous activity Lifting: Gradually increase as tolerated Bathing: No limitations Sexual Activity: When tolerated Weightbearing: Full weightbearing Non-emergency contact: Primary Care Provider Call non-emergency contact if: you have any medication questions and your symptoms worsen Follow-up/Referrals: Dontrell Sears MD [Physician] - (Follow in 1-2weeks to discuss further work-up of abnormal cardiac enzymes. Consider stress test.) Barbara Braun CRNP [Primary Care Provider] - 03/28/19 3:00 pm (Have your potassium level checked in 1-2 weeks.) Diet: Heart Healthy and Low Fat Ambulatory Orders: Potassium (Routine) Timeframe: 1 Week Location: Determined by Patient Ordered By: Donal Barajas Attending Provider Instructions: Call your primary care doctor as soon as possible if you start to run low in your medications. Pending Studies at Discharge: No Stand-Alone Forms: My [facility] [place], Smoking Cessation Medications and DC Order Prescriptions: New atorvastatin 40 mg Tablet 80 mg PO QAM Qty: 30 RF: 0 metoprolol tartrate 100 mg Tablet 100 mg PO BID Qty: 30 RF: 0 amlodipine [Norvasc] 5 mg Tablet 5 mg PO DAILY Qty: 30 RF: 0 aspirin [Ecotrin Low Strength] 81 mg Tablet,Delayed Release (Dr/Ec) 81 mg PO DAILY Qty: 30 RF: 0 levothyroxine [Synthroid] 200 mcg Tablet 200 mcg PO DAILYBB Qty: 30 RF: 0 potassium chloride 20 mEq tablet,ER particles/crystals 20 meq PO DAILY Qty: 30 RF: 0 Discontinued chlorthalidone 25 mg Tablet 25 mg PO DAILY RF: 0 amlodipine 5 mg Tablet 5 mg PO DAILY RF: 0 levothyroxine 200 mcg Tablet 200 mcg PO DAILY RF: 0 aspirin [Aspir-81] 81 mg Tablet,Delayed Release (Dr/Ec) 81 mg PO DAILY RF: 0 lisinopril 10 mg Tablet 0 mg PO DAILY RF: 0 metoprolol tartrate 50 mg Tablet 0 mg PO BID RF: 0 Robitussin Cough and Cold CF 2.5-5-50 mg/5 mL Liquid 10 ml PO Q4 PRN (Reason: Cough) RF: 0 Ariane-Sanford Plus Cold/CoughFm 2-5-10-325 mg Capsule 2 cap PO UD PRN (Reason: Cold Symptoms) RF: 0 Discharge Orders: Discharge Order (Routine); Ordered 03/24/19 Ordered By: Donal Ramsey/Other Patient Handouts: Prediabetes, Diabetes Healthy Meals, A1C Admission Data Admit Date/Time: 03/23/19 17:35 Attending Provider: Donal Pace Admit Provider: Jazmyn Larson Primary Care Provider: Barbara Braun Other Providers: Cortes Walton ; Dontrell Sears
[2019-03-24 11:35] VITALS: PULSE 62
== END 2019-03-24 13:04 | disposition home or self-care (01) | DRG 644 ==
LOC: ED 20:54 → 2S 20:54 → SUATTDRO 03-22 01:12 → 2S 03-22 01:36 → SUATTDRO 03-23 17:35

== ENCOUNTER 2019-03-26 13:09 | Observation (INO) ==
[2019-03-26 14:13] LABS: Basophils # (auto) 0.04 K/uL (0-0.2); Basophils % (auto) 0.4 %; Eosinophils # (auto) 0.23 K/uL (0-0.5); Eosinophils % (auto) 2.5 %; Hematocrit (blood only) 48.9 % (42-52); Immature Granulocytes # (auto) 0.05 K/uL (0.00-0.02); Immature Granulocytes % (auto) 0.5 %; Lymphocytes # (auto) 1.07 K/uL (1.2-3.4); Lymphocytes % (auto) 11.6 %; Mean Corpuscular Hemoglobin 31.6 pg (25-34); Mean Corpuscular Hgb Conc 34.8 g/dL (32-36); Mean Corpuscular Volume 90.9 fL (80-100); Monocytes # (auto) 0.92 K/uL (0.11-0.59); Monocytes % (auto) 9.9 %; Neutrophils # (auto) 6.94 K/uL (1.4-6.5); Neutrophils % (auto) 75.1 %; Platelet Count 218 K/uL (130-400); RDW Coefficient of Variation 16.2 % (11.5-14.5); RDW Standard Deviation 53.1 fL (36.4-46.3); Red Blood Count 5.38 M/uL (4.7-6.1); White Blood Count 9.25 K/uL (4.8-10.8)
--- NOTE | 2019-03-26 14:13 | XRay Report ---
XR chest 1V portable HISTORY: Dyspnea COMPARISON: Chest 03/21/2019. FINDINGS: Cardiomegaly and mild pulmonary vascular congestion have improved. No pleural effusions. No pneumothorax. No new focal lung consolidations to suggest pneumonia. IMPRESSION: Slight improvement in the cardiomegaly and mild pulmonary vascular congestion. Electronically signed by: Amaury Cummins M.D. 03/26/2019 2:12 PM
[2019-03-26 14:30] LABS: Alanine Aminotransferase 143 U/L (12-78); Albumin Level 3.4 gm/dl (3.4-5.0); Aspartate Aminotransferase 274 U/L (15-37); BUN Creatinine Ratio 14.6 (10-20); Blood Urea Nitrogen 26 mg/dl (7-18); Calcium 8.5 mg/dl (8.5-10.1); Carbon Dioxide 24 mmol/L (21-32); Chloride 109 mmol/L (98-107); Est GFR (African American) 50.8; Est GFR (Non-African American) 43.8; Glucose 102 mg/dl (70-99); Potassium 3.4 mmol/L (3.5-5.1); Sodium 141 mmol/L (136-145)
[2019-03-26 14:33] LABS: Albumin Globulin Ratio 0.7 (0.9-2); Alkaline Phosphatase 99 U/L (45-117); Bilirubin,Total 0.7 mg/dl (0.2-1); Globulin 4.7 gm/dl (2.5-4.0); Total Protein 8.1 gm/dl (6.4-8.2)
[2019-03-26 16:27] LABS: Troponin I 0.116 ng/ml (0-0.045)
--- NOTE | 2019-03-26 17:42 | Emergency Department Note ---
Entered by Kyra Baron acting as a scribe for History of Present Illness General Chief complaint: Swelling/Edema to Extremity Stated complaint: BOTH LEGS FILLING WITH FLUID Source: patient Mode of arrival: ambulatory Limitations: no limitations History of Present Illness Provider complaint: Swelling to extremity Onset (ago): hour(s) (today) Location: lower extremity (bilateral) Radiation: non-radiation Severity: similar to prior episodes Pain Consistency: + other (worsening) Quality: + other (swelling) Associated symptoms: + other (Denies: leg pain); no shortness of breath The patient is a 48 year old male with a history of hypertension, hyperlipidemia, IN, kidney stone, and a thyroidectomy who presents to the Emergency Room with complaints of worsening swelling to the bilateral legs starting today. The patient reports that his legs are filled with fluid, making it hard for him to walk. He states that he was seen in the ED 2 days ago for the same symptoms. He notes that he was sent home with prescriptions for his hypertension and that he has been taking them. He complains, however, that his swelling has returned. He denies any leg pain and shortness of breath when lying down. He adds that he is scheduled to see his PCP in another 2 days. The patient reports that he works in [employer] on campus. Home Medications Home Medications Medication Instructions Recorded Confirmed Type amlodipine [Norvasc] 5 mg PO DAILY #30 tab 03/24/19 03/26/19 Rx aspirin [Ecotrin Low Strength] 81 mg PO DAILY #30 tab 03/24/19 03/26/19 Rx atorvastatin 80 mg PO QAM #30 tab 03/24/19 03/26/19 Rx levothyroxine [Synthroid] 200 mcg PO DAILYBB #30 tab 03/24/19 03/26/19 Rx metoprolol tartrate 100 mg PO BID #30 tab 03/24/19 03/26/19 Rx potassium chloride 20 meq PO DAILY #30 tab 03/24/19 03/26/19 Rx Allergies Allergy/AdvReac Type Severity Reaction Status Date / Time No Known Allergies Allergy Unverified 03/26/19 16:55 Past Med/Surg History Family History Other Hypertension Social History Preferred Language: Wallisian Communication Ability: Effective Visual Impairment: No Limitations Hearing Ability: Normal 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 and A total of 10 systems reviewed and were otherwise negative Physical Exam Vital Signs Vital Signs - 24 hr 03/26/19 13:17 03/26/19 14:00 03/26/19 15:09 Temperature 36.8 C Temperature Source Oral Pulse Rate 65 Pulse Rate [Apical] 50 L Respiratory Rate 20 20 Respiratory Effort / Characteristics Non-Labored Respiratory Depth Normal Respiratory Pattern Regular Blood Pressure 156/106 H Blood Pressure [Left Arm] 144/102 H Blood Pressure Mean 122 Blood Pressure Mean [Left Arm] 116 Blood Pressure Position Sitting Pulse Oximetry 93 93 97 Oxygen Delivery Method Room Air Room Air Room Air Sepsis Recent Fever Within 48 Hours No Sepsis Action Taken by Nursing No Action Required GENERAL: Sitting up in bed, disheveled, no distress, non-toxic EYE EXAM: normal conjunctiva OROPHARYNX: no exudate, no erythema, lips, buccal mucosa, and tongue normal and mucous membranes are moist NECK: supple, no nuchal rigidity, no adenopathy, non-tender LUNGS: Clear to auscultation. Normal chest wall mechanics HEART: no murmurs, S1 normal and S2 normal ABDOMEN: abdomen soft, non-tender, normo-active bowel sounds, no masses, no rebound or guarding. BACK: Back is symmetrical on inspection and there is no deformity, no midline tenderness, no CVA tenderness. SKIN: no rashes and no bruising UPPER EXTREMITIES: upper extremities are grossly normal. LOWER EXTREMITIES: bilateral pitting edema. Calves are equal bilateral NEURO EXAM: Normal sensorium, cranial nerves II-XII grossly intact, normal speec h, no gross weakness of arms, no gross weakness of legs. Gross sensation intact. Course Course ED COURSE: Vital signs were reviewed and showed hypertension. The patients medical record was reviewed The above diagnostic studies were performed and reviewed. ED treatments and interventions as stated above. 1344: The patient was evaluated in room C1B. A complete history and physical examination was performed. 1640: I reviewed the patient's case with Dr. Hudson - Cardiology, [facility]. Dr. uHdson does not believe that the patient's case is cardiac. He thinks the patient should be brought in for edema and no improvement of symptoms. 1657: Upon reevaluation, the patient is resting. I discussed my findings with the patient and he understands and agrees with the treatment plan. 1726: I reviewed the patient's case with Dr. Camacho - HospitalistKevin. Dr. Camacho will evaluate the patient for further management. Based on the patients age, coexisting illnesses, exam and lab findings the decision to treat as an inpatient was made. The patient remained stable while under my care. The patient will be evaluated for further management. Consultations Consultation #1: I reviewed the patient's case with Dr. Hudson - Cardiology, [facility]. Dr. Hudson does not believe that the patient's case is cardiac. He thinks the patient should be brought in for edema and no improvement of symptoms. Time: 16:40 Consultation #2: I reviewed the patient's case with Dr. Camacho - [facility]. Dr. Camacho will evaluate the patient for further management. Time: 17:26 Medical Decision Making Differential Diagnosis Differential diagnosis: Etiologies such as infections, reactive airway disease, pneumonia, pneumothorax, COPD, CHF, cardiac ischemia, pulmonary embolism, musculoskeletal, gastrointestinal, as well as others were entertained. Medical Records Attestation: I reviewed the patient's medical records. I reviewed the patient's old chart on the electronic medical record. The patient was recently admitted and treated for mixed edema believed to be the cause of his lower extremity edema and transaminitis. Home Medications Current Medication List: was personally reviewed by me Laboratory Data Attestation: I reviewed the patient's lab results. Result diagrams: 03/26/19 14:00 03/26/19 14:00 Lab Results 03/26/19 03/26/19 03/26/19 Range/Units 14:00 14:00 14:00 WBC 9.25 (4.8-10.8) K/uL RBC 5.38 (4.7-6.1) M/uL Hgb 17.0 (14.0-18.0) g/dL Hct 48.9 (42-52) % MCV 90.9 (80-100) fL MCH 31.6 (25-34) pg MCHC 34.8 (32-36) g/dL RDW Std Deviation 53.1 H (36.4-46.3) fL RDW Coeff of Tiffanie 16.2 H (11.5-14.5) % Plt Count 218 (130-400) K/uL MPV 10.0 (7.4-10.4) fL Immature Gran % (Auto) 0.5 % Neut % (Auto) 75.1 % Lymph % (Auto) 11.6 % [place] % (Auto) 9.9 % Eos % (Auto) 2.5 % Baso % (Auto) 0.4 % Immature Gran # (Auto) 0.05 H (0.00-0.02) K/uL Neut # (Auto) 6.94 H (1.4-6.5) K/uL Lymph # (Auto) 1.07 L (1.2-3.4) K/uL [place] # (Auto) 0.92 H (0.11-0.59) K/uL Eos # (Auto) 0.23 (0-0.5) K/uL Baso # (Auto) 0.04 (0-0.2) K/uL Sodium 141 (136-145) mmol/L Potassium 3.4 L (3.5-5.1) mmol/L Chloride 109 H (98-107) mmol/L Carbon Dioxide 24 (21-32) mmol/L Anion Gap 7.0 (3-11) BUN 26 H (7-18) mg/dl Creatinine 1.80 H (0.6-1.4) mg/dl Est Cr Clr Drug Dosing Not Reportable Est GFR ( Amer) 50.8 Est GFR (Non-Af Amer) 43.8 BUN/Creatinine Ratio 14.6 (10-20) Glucose 102 H (70-99) mg/dl Calcium 8.5 (8.5-10.1) mg/dl Total Bilirubin 0.7 (0.2-1) mg/dl AST 274 H (15-37) U/L ALT 143 H (12-78) U/L Alkaline Phosphatase 99 (45-117) U/L Troponin I (0-0.045) ng/ml NT-Pro-B Natriuret Pep 373 (0-450) pg/ml Total Protein 8.1 (6.4-8.2) gm/dl Albumin 3.4 (3.4-5.0) gm/dl Globulin 4.7 H (2.5-4.0) gm/dl Albumin/Globulin Ratio 0.7 L (0.9-2) 03/26/19 Range/Units 14:00 WBC (4.8-10.8) K/uL RBC (4.7-6.1) M/uL Hgb (14.0-18.0) g/dL Hct (42-52) % MCV (80-100) fL MCH (25-34) pg MCHC (32-36) g/dL RDW Std Deviation (36.4-46.3) fL RDW Coeff of Tiffanie (11.5-14.5) % Plt Count (130-400) K/uL MPV (7.4-10.4) fL Immature Gran % (Auto) % Neut % (Auto) % Lymph % (Auto) % [place] % (Auto) % Eos % (Auto) % Baso % (Auto) % Immature Gran # (Auto) (0.00-0.02) K/uL Neut # (Auto) (1.4-6.5) K/uL Lymph # (Auto) (1.2-3.4) K/uL [place] # (Auto) (0.11-0.59) K/uL Eos # (Auto) (0-0.5) K/uL Baso # (Auto) (0-0.2) K/uL Sodium (136-145) mmol/L Potassium (3.5-5.1) mmol/L Chloride (98-107) mmol/L Carbon Dioxide (21-32) mmol/L Anion Gap (3-11) BUN (7-18) mg/dl Creatinine (0.6-1.4) mg/dl Est Cr Clr Drug Dosing Est GFR ( Amer) Est GFR (Non-Af Amer) BUN/Creatinine Ratio (10-20) Glucose (70-99) mg/dl Calcium (8.5-10.1) mg/dl Total Bilirubin (0.2-1) mg/dl AST (15-37) U/L ALT (12-78) U/L Alkaline Phosphatase (45-117) U/L Troponin I 0.116 H* (0-0.045) ng/ml NT-Pro-B Natriuret Pep (0-450) pg/ml Total Protein (6.4-8.2) gm/dl Albumin (3.4-5.0) gm/dl Globulin (2.5-4.0) gm/dl Albumin/Globulin Ratio (0.9-2) Imaging Data Radiologist's Impression: Radiology results as stated below per my review and the radiologist's interpretation: XR chest 1V portable HISTORY: Dyspnea COMPARISON: Chest 03/21/2019. FINDINGS: Cardiomegaly and mild pulmonary vascular congestion have improved. No pleural effusions. No pneumothorax. No new focal lung consolidations to suggest pneumonia. IMPRESSION: Slight improvement in the cardiomegaly and mild pulmonary vascular congestion. Electronically signed by: Amaury Cummins M.D. 03/26/2019 2:12 PM ECG Data Attestation: I personally reviewed and interpreted this ECG as follows: Indication: + other (leg swelling) Rate (beats per minute): 59 Rhythm: + sinus bradycardia ECG [place]: + Normal ECG Findings: no PVCs Comparison ECG Date: from (03/23/19) Change: the following changes noted (improved) Blood Pressure Blood Pressure Findings: Elevated blood pressure Blood Pressure Disposition: further management by hospitalist RICHARD Narrative Patient is a 48-year-old male with a past medical history of obesity, hypertension, hyperlipidemia, previous IN with recent admission and discharge for myxedema questionably causing an elevated troponin versus hypertension along with transaminitis and edema in his bilateral lower extremities. He represents today as the swelling has reoccurred in his lower extremities although he notes it is not significantly worse than what it was. He again denies any chest pain or shortness of breath. Blood pressure was improved at 140 systolics and heart rate was in the 50s. IV was established blood work was obtained and showed no significant leukocytosis or anemia. BMP with mild hypokalemia. His creatinine has actually improved from 2.06-1.8. LFTs are worsening with AST of 274 and ALT of 143. Initial troponin was positive at 0.116 which is back to where he was when he initially came in. EKG is improved from his last visit. Discussed my findings with cardiology and Dr. Hudson notes he does not believe that this is likely cardiac but feels this gentleman may benefit from coming in due to persistent return visit and stress test. Patient is a fairly high risk but did have a recent echo that was negative. Again he has no chest pain or shortness of breath. Uncertain of the true cause of this elevated troponin. Did repeat a troponin but still pending. TSH has been diluted multiple times and is still pending. Impression & Plan Myxedema, Hypertension, Elevated troponin, Hypothyroidism, Transaminitis, Chronic kidney disease Discharge Plan Visit Data Chief Complaint: Swelling/Edema to Extremity Stated Complaint: BOTH LEGS FILLING WITH FLUID ED Provider: Jamarcus Hi Discharge Problem: Myxedema, Hypertension, Elevated troponin, Hypothyroidism, Transaminitis, Chronic kidney disease Patient Disposition: Admitted As Inpatient Forms Stand Alone Forms: My [facility] Prescriptions Prescriptions: No Action atorvastatin 40 mg Tablet 80 mg PO QAM Qty: 30 RF: 0 metoprolol tartrate 100 mg Tablet 100 mg PO BID Qty: 30 RF: 0 amlodipine [Norvasc] 5 mg Tablet 5 mg PO DAILY Qty: 30 RF: 0 aspirin [Ecotrin Low Strength] 81 mg Tablet,Delayed Release (Dr/Ec) 81 mg PO DAILY Qty: 30 RF: 0 levothyroxine [Synthroid] 200 mcg Tablet 200 mcg PO DAILYBB Qty: 30 RF: 0 potassium chloride 20 mEq tablet,ER particles/crystals 20 meq PO DAILY Qty: 30 RF: 0 Referrals Referrals: Barbara Braun CRNP [Primary Care Provider] - Discharge Problem: Hypertension Qualifiers: Hypertension type: unspecified Qualified Code(s): I10 - Essential (primary) hypertension Hypothyroidism Qualifiers: Hypothyroidism type: unspecified Qualified Code(s): E03.9 - Hypothyroidism, unspecified Chronic kidney disease Qualifiers: Chronic kidney disease stage: unspecified stage Qualified Code(s): N18.9 - Security Risk Analyst ally kidney disease, unspecified The scribe's documentation has been prepared under my direction and personally reviewed by me in its entirety. I confirm that the note above accurately refle cts all work, treatment, procedures, and medical decision making performed by me.
--- NOTE | 2019-03-26 20:35 | History & Physical Report ---
Date of Service March 26, 2019 Assessment & Plan (1) Elevated troponin: Patient with mildly elevated troponin. EKG abnormal, stable from prior. Patient denies symptoms consistent with angina or ACS. He does have multiple risk factors to include hypertension, hyperlipidemia, CKD, tobacco use and morbid obesity. Observation to medical floor telemetry Continue aspirin 81 mg p.o. daily Continue atorvastatin 80 mg p.o. daily We will hold metoprolol for now to allow for adequate stress testing Dobutamine stress echocardiogram ordered for the morning. Do not feel the patient can adequately complete an exercise stress test at this time given his leg heaviness and weakness Cardiology consult appreciated Present on Admission?: Yes (2) Hypothyroid: Patient admitted last week with myxedema presumably from medication noncompliance. Elevated TSH today at 155. -Continue Synthroid -Close outpatient follow-up Present on Admission?: Yes (3) Chronic kidney disease: Patient with CKD. BUN = 26, creatinine = 1.8. Chlorthalidone and lisinopril have recently been held. Avoid nephrotoxic agents Renal dosing were needed Follow BUN/creatinine/electrolytes and urine output Present on Admission?: Yes (4) Hyperlipidemia: Chronic. Stable. Continue atorvastatin 80 mg p.o. daily Present on Admission?: Yes (5) Hypertension: Blood pressure mildly elevated today at 144/102 Continue metoprolol 100 mg p.o. twice daily Present on Admission?: Yes (6) Edema: Patient with bilateral lower extremity edema. Suspect that a large part of this is from venous insufficiency. Patient is a large gentleman, works on his feet, does not wear compression stockings. He has some visible varicosities. Patient's endocrine abnormalities contributing as well. Suggested compression stockings to be worn at work and when he will be on his feet for extended period of time Ischemic work-up as above Continue Synthroid at home dose with close outpatient follow-up Check UA to assess for proteinuria If work-up otherwise unrevealing may consider vascular imaging for possible compressive source of edema [id number], monitor electrolytes, heart healthy diet ProphylaxisHeparin Codefull Disposition observation to medical floor telemetry Present on Admission?: Yes History of Present Illness Chief Complaint: Heaviness in the legs Primary Care Provider: BALDO Arora Chris Holm is a 48-year-old male with history of hypertension/hyperlipidemia/CKD/thyroid cancer status post thyroidectomy presenting with bilateral lower extremity edema and heaviness. Patient was recently admitted on 03/22 with suspected myxedema in setting of medication noncompliance. TSH at that time = 2.18 and T4 = 0.14. His troponin level was mildly elevated (0.092 and 0.102). He was evaluated by cardiology and was recommended to pursue an outpatient ischemic work-up which was being arranged. Mr. 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 He reports a mild disagreement with the business management specialist which resulted in him being dropped off blocks away from his destination. As he was walking to work he had to stop 2 times to rest because his legs felt weak and heavy. Due to his elevated troponin level discovered in the ER, cardiology was called by the ER attending and it was recommended that he be placed on observation status with plans for a stress test in the morning. Patient denies chest pain/heaviness/palpitations/shortness of breath. He denies dizziness/diaphoresis. His work entails being on his feet for prolonged periods of time. 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 He denies ever having to stop work due to chest discomfort or shortness of breath. He reports compliance with his medications. He was contacted by his family doctor today and was told to hold his lisinopril and chlorthalidone presumably due to renal function. Upon review of records, patient was instructed to hold these medications on discharge 03/24. He did continue however to take them until today. Allergies Allergy/AdvReac Type Severity Reaction Status Date / Time No Known Allergies Allergy Unverified 03/26/19 16:55 Home Medications Home Medications Medication Instructions Recorded Confirmed Type amlodipine [Norvasc] 5 mg PO DAILY #30 tab 03/24/19 03/26/19 Rx aspirin [Ecotrin Low Strength] 81 mg PO DAILY #30 tab 03/24/19 03/26/19 Rx atorvastatin 80 mg PO QAM #30 tab 03/24/19 03/26/19 Rx levothyroxine [Synthroid] 200 mcg PO DAILYBB #30 tab 03/24/19 03/26/19 Rx metoprolol tartrate 100 mg PO BID #30 tab 03/24/19 03/26/19 Rx potassium chloride 20 meq PO DAILY #30 tab 03/24/19 03/26/19 Rx Past Med/Surg History Medical History (Updated 03/26/19 @ 20:32 by Shayla Camacho DO) Hyperlipidemia Hypertension (Chronic) Kidney stone (Resolved) Myocardial infarct (Inactive) Surgical History (Updated 03/26/19 @ 20:22 by Shayla Camacho DO) History of thyroidectomy S/P thyroidectomy Family History (Updated 03/26/19 @ 20:23 by Shayla Camacho DO) Other Coronary heart disease Hypertension Social History Preferred Language: Icelandic Communication Ability: Effective Visual Impairment: No Limitations Hearing Ability: Normal Cq Developer Required: No Beliefs That Will Affect Care: None marital status: Current Living Situation: Family current occupational status: employed Feels Safe at Home: Yes Smoking Status: Former smoker Second Hand Exposure: No ; Hx Alcohol Use: No Hx Substance Use: No Review of Systems Review of Systems: All systems reviewed & are unremarkable except as noted in HPI & below Patient denies numbness, weakness Denies abdominal pain, nausea, vomiting, diarrhea, constipation Denies dysuria, frequency, urgency Physical Exam Physical Exam: General: patient resting comfortably, NAD, non-toxic in ap pearance, AA&O x 4 Skin: warm, dry, intact HEENT: NC/AT, PERRL, EOMI, anicteric sclera, conjunctiva without injection, external ear normal to inspection and nontender, nares patent, moist mucus memb ranes, dentition intact, no oropharyngeal lesions, neck supple, trachea midline, no LAD, no thyromegaly, no JVD Heart: +S1/S2, regular, no m/r/g Lungs: equal air entry bilaterally, no rales/rhonchi/wheezes Abd: +BS, soft, NT/ND, no masses/organomegaly/ascites Ext: warm, 2+ pulses in UE/LE bilaterally, no clubbing/cyanosis, 2+ edema of bilateral lower extremities, skin thickening, small erythema rash Neuro: nonfocal, patient AA&O x 4, speech intact, no facial droop, moving all extremities on command with equal strength 5/5 Results & Data Vital Signs (Past 12 Hours) Vital Signs Temp Pulse Pulse Resp BP BP Pulse Ox 03/26/19 18:33 64 20 151/116 H 98 03/26/19 15:09 50 L 20 144/102 H 97 03/26/19 14:00 93 03/26/19 13:17 36.8 C 65 20 156/106 H 93 Laboratory Results Lab Results 03/26/19 03/26/19 03/26/19 Range/Units 14:00 14:00 14:00 WBC 9.25 (4.8-10.8) K/uL RBC 5.38 (4.7-6.1) M/uL Hgb 17.0 (14.0-18.0) g/dL Hct 48.9 (42-52) % MCV 90.9 (80-100) fL MCH 31.6 (25-34) pg MCHC 34.8 (32-36) g/dL RDW Std Deviation 53.1 H (36.4-46.3) fL RDW Coeff of Tiffanie 16.2 H (11.5-14.5) % Plt Count 218 (130-400) K/uL MPV 10.0 (7.4-10.4) fL Immature Gran % (Auto) 0.5 % Neut % (Auto) 75.1 % Lymph % (Auto) 11.6 % [place] % (Auto) 9.9 % Eos % (Auto) 2.5 % Baso % (Auto) 0.4 % Immature Gran # (Auto) 0.05 H (0.00-0.02) K/uL Neut # (Auto) 6.94 H (1.4-6.5) K/uL Lymph # (Auto) 1.07 L (1.2-3.4) K/uL [place] # (Auto) 0.92 H (0.11-0.59) K/uL Eos # (Auto) 0.23 (0-0.5) K/uL Baso # (Auto) 0.04 (0-0.2) K/uL Sodium 141 (136-145) mmol/L Potassium 3.4 L (3.5-5.1) mmol/L Chloride 109 H (98-107) mmol/L Carbon Dioxide 24 (21-32) mmol/L Anion Gap 7.0 (3-11) BUN 26 H (7-18) mg/dl Creatinine 1.80 H (0.6-1.4) mg/dl Est Cr Clr Drug Dosing Not Reportable Est GFR ( Amer) 50.8 Est GFR (Non-Af Amer) 43.8 BUN/Creatinine Ratio 14.6 (10-20) Glucose 102 H (70-99) mg/dl Calcium 8.5 (8.5-10.1) mg/dl Total Bilirubin 0.7 (0.2-1) mg/dl AST 274 H (15-37) U/L ALT 143 H (12-78) U/L Alkaline Phosphatase 99 (45-117) U/L Troponin I (0-0.045) ng/ml NT-Pro-B Natriuret Pep 373 (0-450) pg/ml Total Protein 8.1 (6.4-8.2) gm/dl Albumin 3.4 (3.4-5.0) gm/dl Globulin 4.7 H (2.5-4.0) gm/dl Albumin/Globulin Ratio 0.7 L (0.9-2) TSH (0.300-4.500) uIu/ml 03/26/19 03/26/19 Range/Units 14:00 16:43 WBC (4.8-10.8) K/uL RBC (4.7-6.1) M/uL Hgb (14.0-18.0) g/dL Hct (42-52) % MCV (80-100) fL MCH (25-34) pg MCHC (32-36) g/dL RDW Std Deviation (36.4-46.3) fL RDW Coeff of [place]anie (11.5-14.5) % Plt Count (130-400) K/uL MPV (7.4-10.4) fL Immature Gran % (Auto) % Neut % (Auto) % Lymph % (Auto) % [place] % (Auto) % Eos % (Auto) % Baso % (Auto) % Immature Gran # (Auto) (0.00-0.02) K/uL Neut # (Auto) (1.4-6.5) K/uL Lymph # (Auto) (1.2-3.4) K/uL [place] # (Auto) (0.11-0.59) K/uL Eos # (Auto) (0-0.5) K/uL Baso # (Auto) (0-0.2) K/uL Sodium (136-145) mmol/L Potassium (3.5-5.1) mmol/L Chloride (98-107) mmol/L Carbon Dioxide (21-32) mmol/L Anion Gap (3-11) BUN (7-18) mg/dl Creatinine (0.6-1.4) mg/dl Est Cr Clr Drug Dosing Est GFR ( Amer) Est GFR (Non-Af Amer) BUN/Creatinine Ratio (10-20) Glucose (70-99) mg/dl Calcium (8.5-10.1) mg/dl Total Bilirubin (0.2-1) mg/dl AST (15-37) U/L ALT (12-78) U/L Alkaline Phosphatase (45-117) U/L Troponin I 0.116 H* 0.115 H* (0-0.045) ng/ml NT-Pro-B Natriuret Pep (0-450) pg/ml Total Protein (6.4-8.2) gm/dl Albumin (3.4-5.0) gm/dl Globulin (2.5-4.0) gm/dl Albumin/Globulin Ratio (0.9-2) TSH 155.000 H (0.300-4.500) uIu/ml Diagnostic Findings XR chest 1V portable HISTORY: Dyspnea COMPARISON: Chest 03/21/2019. FINDINGS: Cardiomegaly and mild pulmonary vascular congestion have improved. No pleural effusions. No pneumothorax. No new focal lung consolidations to suggest pneumonia. IMPRESSION: Slight improvement in the cardiomegaly and mild pulmonary vascular congestion. Electronically signed by: Amaury Cummins M.D. 03/26/2019 2:12 PM Dictated: 03/26/19 1410 Transcribed: 03/26/19 1410 ECG Additional Comments: Study shows sinus bradycardia 59 bpm, first-degree AV block with MS = 210, QRS = 82, QTc = 453. T wave abnormality noted in lateral leads. Relatively unchanged from prior study on 23 March 2019 Code Status & VTE Plan Code Status Full code VTE Prophylaxis Plan VTE Prophylaxis will be ordered: Yes PG Care Time/CCT Total # of Minutes Spent Total Time Spent with Patient: Total time spent is greater than 50% in coordination of care (as documented) at patient's floor/unit and/or counseling patient: (1) Chronic kidney disease Chronic kidney disease stage: unspecified stage Qualified Code(s): N18.9 - Chronic kidney disease, unspecified (2) Hyperlipidemia Hyperlipidemia type: unspecified Qualified Code(s): E78.5 - Hyperlipidemia, unspecified (3) Hypertension Hypertension type: unspecified Qualified Code(s): I10 - Essential (primary) hypertension (4) Hypothyroid Hypothyroidism type: unspecified Qualified Code(s): E03.9 - Hypothyroidism, unspecified (5) Edema Edema type: localized Qualified Code(s): R60.0 - Localized edema
[2019-03-26] MEDS ORDERED: POTASSIUM CHLORIDE 20 MEQ TABCR PO ONE (20:45)
[2019-03-26 21:09] LABS: Phosphorus 4.4 mg/dl (2.5-4.9)
[2019-03-26 21:30] LABS: Magnesium 2.2 mg/dl (1.8-2.4)
[2019-03-26] MEDS: HEPARIN SOD 5,000 UNIT/0.5 ML VIAL SQ SCH (21:31)
[2019-03-26] MEDS ORDERED: ALBUTEROL HFA 8 GM INHALER INH PRN (23:58)
[2019-03-27] MEDS: HEPARIN SOD 5,000 UNIT/0.5 ML VIAL SQ SCH ×3 (06:00→20:46)
[2019-03-27] MEDS: LEVOTHYROXINE SODIUM 200 MCG TABLET PO SCH (06:01)
[2019-03-27 06:33] LABS: Basophils # (auto) 0.02 K/uL (0-0.2); Basophils % (auto) 0.2 %; Eosinophils # (auto) 0.28 K/uL (0-0.5); Eosinophils % (auto) 3.4 %; Hematocrit (blood only) 46.6 % (42-52); Immature Granulocytes # (auto) 0.03 K/uL (0.00-0.02); Immature Granulocytes % (auto) 0.4 %; Lymphocytes # (auto) 1.23 K/uL (1.2-3.4); Lymphocytes % (auto) 14.8 %; Mean Corpuscular Hemoglobin 31.2 pg (25-34); Mean Corpuscular Hgb Conc 34.3 g/dL (32-36); Mean Corpuscular Volume 90.8 fL (80-100); Mean Platelet Volume 10.2 fL (7.4-10.4); Monocytes # (auto) 1.03 K/uL (0.11-0.59); Monocytes % (auto) 12.4 %; Neutrophils # (auto) 5.73 K/uL (1.4-6.5); Neutrophils % (auto) 68.8 %; Platelet Count 195 K/uL (130-400); RDW Coefficient of Variation 16.3 % (11.5-14.5); Red Blood Count 5.13 M/uL (4.7-6.1); White Blood Count 8.32 K/uL (4.8-10.8)
[2019-03-27 06:42] LABS: INR 1.1 (0.9-1.1); Prothrombin Time 10.8 Seconds (9.0-12.0)
[2019-03-27 07:15] LABS: Albumin Level 3.5 gm/dl (3.4-5.0); BUN Creatinine Ratio 13.1 (10-20); Bilirubin Direct 0.2 mg/dl (0-0.2); Bilirubin,Total 0.7 mg/dl (0.2-1); Creatinine Clr Calc Pharmacy 80.3 ml/min; Est GFR (African American) 54.5; Total Protein 8.3 gm/dl (6.4-8.2)
[2019-03-27 07:19] LABS: Troponin I 0.101 ng/ml (0-0.045)
[2019-03-27] MEDS: ATORVASTATIN 40 MG TAB PO SCH (07:52)
[2019-03-27] MEDS: POTASSIUM CHLORIDE 20 MEQ TABCR PO SCH (07:52)
[2019-03-27] MEDS: ASPIRIN 81 MG ECTAB PO SCH (07:52)
[2019-03-27] MEDS ORDERED: AMLODIPINE BESYLATE 5 MG TAB PO SCH (09:00)
[2019-03-27] MEDS ORDERED: POTASSIUM CHLORIDE 20 MEQ TABCR PO STA (09:46)
--- NOTE | 2019-03-27 09:51 | Cardiology Progress Note ---
Date of Service March 27, 2019 Assessment & Plan (1) Edema: He has bilateral edema which is not surprising, he went home still fluid overloaded and he does not seem to have gained weight. I suspect his edema is due to being on his feet for a whole shift 2 days in a row and getting dependent edema. I would continue to diurese, he does not seem to be on a diuretic here. I do not think this represents an additional issue but he will need more diuresis. (2) Elevated troponin: He continues to have a mildly elevated troponin, it is relatively stable compared to his last visit and I would not consider this an acute finding. I agree with a stress test, we had planned on doing that as an outpatient but since he is here I would proceed with doing it while he is here. This could be pharmacologic or treadmill testing although he may not do well on a treadmill. (3) Acute electrocardiogram changes: He does have lateral T wave inversion which has not changed compared to last admission, his echocardiogram showed normal left ventricular function without wall motion abnormalities but I would investigate this since he also has the enzyme abnormalities. Agree with a stress test. (4) Hypertension: He has significant hypertension, he is on beta-blockade for his hypertension and he does have bradycardia at times however other than getting into the 30s this morning (which could be sleep apnea) his heart rate has been acceptable. He probably will need additional medications for his hypertension however. I have not ordered them. Subjective This is a 48-year-old male who has a history of hypertension and chronic kidney disease as well as thyroidectomy for thyroid cancer. He presented with bilateral leg swelling March 21, 2019. He is markedly obese, and he told me that his weight had probably been increasing but he had not been checking his weight. He thought his weight had been going up because he "does not have a thyroid". He told me that he did not notice his leg swelling until the day he came into the hospital, on that day he felt like his legs were made of lead and he noticed that they were swollen. He told me that he did not notice them swollen at all before that. 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 and had not had difficulty with exertion doing those types of things. He did not have exertional chest discomfort, he has not had lightheadedness dizziness or palpitations. Evaluation here showed borderline troponin elevation, a markedly elevated TSH, markedly elevated triglycerides and cholesterol. His electrocardiogram showed lateral T wave inversion which did not change during his hospitalization. Echocardiography showed left ventricular hypertrophy but normal left ventricular systolic function and normal left ventricular size. Chest x-ray on admission shows possible mild fluid overload, his BNP was not elevated but was near the top of the normal range. He was diuresed and he was discharged on March 24, 2019. He was home for 2 days, he went back to work on both of those days. On March 26, 2019 he noticed that his legs were swollen again, he feels it happened abruptly between the time he left work and the time he got home. He therefore came into the emergency room. Here he was noted to have borderline troponin elevation once again, similar electrocardiographic changes to last admission, and his weight was actually down slightly from before. At the time of my evaluation today he was feeling better, he was on his feet a lot for the 2 days he was home because he went to work which involves being on his feet during his entire shift. He tells me that he has been urinating quite a bit and has been trying to watch his fluid. Physical Exam Physical Exam: Constitutional: Alert, cooperative and in no distress. He is markedly obese HEENT: Unremarkable Neck: No jugular venous distention, carotid pulses are normal and equal bilaterally without bruits. Pulmonary: Clear to auscultation bilaterally. Cardiac: Regular rhythm with no murmur, gallop or rub. Abdomen: Soft, nontender with normal bowel sounds. Extremities: +2 bilateral pretibial pitting edema. Distal pulses intact. Neurologic: No focal findings. Gait is steady. Skin: No rash, ecchymoses or petechiae. Results & Data Vital Signs (Past 12 Hours) Vital Signs Temp Pulse Pulse Resp BP Pulse Ox 03/27/19 08:00 54 L 03/27/19 07:56 36.6 C 65 20 144/104 H 92 03/27/19 04:01 36.6 C 64 20 141/92 H 94 03/27/19 00:46 70 03/26/19 22:42 37.1 C 70 20 157/75 H 91 Laboratory Results Abnormal lab results 03/26/19 03/26/19 03/26/19 Range/Units 14:00 14:00 14:00 RDW Std Deviation 53.1 H (36.4-46.3) fL RDW Coeff of Tiffanie 16.2 H (11.5-14.5) % Immature Gran # (Auto) 0.05 H (0.00-0.02) K/uL Neut # (Auto) 6.94 H (1.4-6.5) K/uL Lymph # (Auto) 1.07 L (1.2-3.4) K/uL [place] # (Auto) 0.92 H (0.11-0.59) K/uL Potassium 3.4 L (3.5-5.1) mmol/L Chloride 109 H (98-107) mmol/L BUN 26 H (7-18) mg/dl Creatinine 1.80 H (0.6-1.4) mg/dl Glucose 102 H (70-99) mg/dl Calcium (8.5-10.1) mg/dl AST 274 H (15-37) U/L ALT 143 H (12-78) U/L Troponin I 0.116 H* (0-0.045) ng/ml Total Protein (6.4-8.2) gm/dl Globulin 4.7 H (2.5-4.0) gm/dl Albumin/Globulin Ratio 0.7 L (0.9-2) TSH 155.000 H (0.300-4.500) uIu/ml 03/26/19 03/27/19 03/27/19 Range/Units 16:43 06:17 06:17 RDW Std Deviation 54.0 H (36.4-46.3) fL RDW Coeff of Tiffanie 16.3 H (11.5-14.5) % Immature Gran # (Auto) 0.03 H (0.00-0.02) K/uL Neut # (Auto) (1.4-6.5) K/uL Lymph # (Auto) (1.2-3.4) K/uL Isabella # (Auto) 1.03 H (0.11-0.59) K/uL Potassium 3.0 L (3.5-5.1) mmol/L Chloride (98-107) mmol/L BUN 22 H (7-18) mg/dl Creatinine 1.70 H (0.6-1.4) mg/dl Glucose (70-99) mg/dl Calcium 8.0 L (8.5-10.1) mg/dl AST 259 H (15-37) U/L ALT 140 H (12-78) U/L Troponin I 0.115 H* 0.101 H* (0-0.045) ng/ml Total Protein 8.3 H (6.4-8.2) gm/dl Globulin (2.5-4.0) gm/dl Albumin/Globulin Ratio (0.9-2) TSH (0.300-4.500) uIu/ml Diagnostic Findings His electrocardiogram here shows sinus rhythm with lateral T wave inversion. Telemetry monitoring shows sinus rhythm with a rate from 40-60, he did have sinus bradycardia in 30s this morning, probably while sleeping. PG Care Time/CCT Total # of Minutes Spent Total Time Spent with Patient: Total time spent is greater than 50% in coordination of care (as documented) at patient's floor/unit and/or counseling patient: (1) Edema Edema type: localized Qualified Code(s): R60.0 - Localized edema (2) Hypertension Hypertension type: unspecified Qualified Code(s): I10 - Essential (primary) hypertension
[2019-03-27] MEDS ORDERED: FUROSEMIDE 40 MG in SYRINGE 0 ML IV ONE (18:30)
--- NOTE | 2019-03-27 18:38 | Hospitalist Progress Note ---
Date of Service March 27, 2019 Assessment & Plan (1) Edema: Patient with bilateral lower extremity edema. Suspect that a large part of this is from venous insufficiency and dependent edema. Patient is a large gentleman, works on his feet, does not wear compression stockings. He has some visible varicosities. Patient's endocrine abnormalities contributing as well. He is volume overloaded as well which is likely secondary to hypothyroidism Echocardiogram last admission with preserved EF, moderate LVH, could not accurately assess the right ventricle though Edema is improving today without any treatment except for MOSHE ramos Suggested compression stockings to be worn at work and when he will be on his feet for extended period of time Ischemic work-up as below Continue Synthroid at home dose with close outpatient follow-up UA is with 4+ proteinuria-consulting nephrology -Giving IV Lasix 40 mg x 1 now (2) Elevated troponin: Patient with mildly elevated troponin and remained stable at 0.13. EKG abnormal, stable from prior with T wave inversions in the anterolateral leads. Patient denies symptoms consistent with angina or ACS. He does have multiple risk factors to include hypertension, hyperlipidemia, CKD, tobacco use and morbid obesity. Continue aspirin 81 mg p.o. daily Continue atorvastatin 80 mg p.o. daily Given that he has significantly elevated blood pressures, will reinstitute metoprolol at 50 mg p.o. twice daily which is lower than his home dose Cardiology consult appreciated-dobutamine stress echo was canceled due to technical difficulties with visualization on previous echocardiogram -Ordered Lexiscan nuclear stress test for tomorrow morning (3) Hypothyroid: Patient admitted last week with myxedema presumably from medication noncompliance. Elevated TSH today at 155 which is improved from greater than 200 last admission. -Continue Synthroid at current dose -Close outpatient follow-up (4) Chronic kidney disease: Patient with CKD. BUN = 26, creatinine = 1.8. Chlorthalidone and lisinopril have recently been held. He previously followed with nephrology, Dr. San, however his been noncompliant with follow-up as he thought at his last visit over a year ago that he did not have to come back because everything was stable Creatinine around his baseline today at 1.7 He has 4+ proteinuria and 3+ blood in his urinalysis Avoid nephrotoxic agents Renal dosing were needed Follow BUN/creatinine/electrolytes and urine output -Consult nephrology -Giving IV Lasix as above for volume overload (5) Hyperlipidemia: Chronic. Stable. Continue atorvastatin 80 mg p.o. daily (6) Hypertension: Blood pressure elevated today likely from holding his home metoprolol -Restart metoprolol at lower dose of 50 mg p.o. twice daily given bradycardia into the 40s -Increase amlodipine to 10 mg daily -Holding home lisinopril and chlorthalidone-we will discuss with nephrology (7) S/P thyroidectomy: Noted -With significantly elevated TSH as above (8) Myxedema: Noted as above, secondary to noncompliance with medication -Replacing with levothyroxine (9) Hypokalemia: Potassium 3.0 today, likely secondary to chlorthalidone -Replace with potassium chloride p.o. -Follow potassium levels in the morning -Follow magnesium level in the morning (10) DVT prophylaxis: Heparin SQ Disposition-remain on medical floor with telemetry overnight with stress test tomorrow and hopeful for discharge to home tomorrow after diuresis and ischemic evaluation Subjective Patient feels better now but he is resting in bed. Feels that the swelling in his arms and legs is decreasing and urinated a lot overnight. Denies chest pain or shortness of breath. Denies nausea or abdominal pain. He is tolerating p.o. His sister is at the bedside and she reports that he has difficulty with attending multiple doctors appointments and would like to just have one doctor that can manage all of his issues. He is also had issues with insurance [id number] and therefore missed his medications a lot in the last couple of months. I discussed the case with cardiology and with nephrology. Telemetry with normal sinus rhythm with rates in the 40s to 60s Review of Systems Review of Systems: All systems reviewed & are unremarkable except as noted in HPI & below Physical Exam Constitutional: WD/WN, vitals as above + obese Eyes: + anicteric sclerae and EOM intact bilaterally Neck: trachea midline, no thyromegaly Respiratory: normal respiratory effort, lungs clear to auscultation Cardiovascular: Rate/Rhythm: regular rate and regular rhythm Heart Sounds: no murmur Extremities: + edema (1+ pitting edema of the arms and 1-2+ pitting edema legs bilaterally to the knees) Chest (Breasts): Chest: normal inspection of chest Gastrointestinal (Abdomen): normal bowel sounds, soft, nontender, no hepatosplenomegaly (Obese abdomen) Musculoskeletal: Extremities: extremities normal to inspection; no cyanosis and no clubbing Skin: no rashes, warm and dry Neurologic: moves all extremities and awake; no focal motor deficits Psychiatric: A+Ox3, euthymic affect Results & Data Vital Signs (Past 12 Hours) Vital Signs Temp Pulse Pulse Resp BP Pulse Ox 03/27/19 16:59 77 03/27/19 15:29 36.5 C 85 18 165/113 H 96 03/27/19 11:12 36.5 C 82 20 146/95 H 96 03/27/19 08:00 54 L 03/27/19 07:56 36.6 C 65 20 144/104 H 92 Laboratory Results 03/27/19 03/27/19 03/27/19 Range/Units 06:17 06:17 06:17 WBC 8.32 (4.8-10.8) K/uL RBC 5.13 (4.7-6.1) M/uL Hgb 16.0 (14.0-18.0) g/dL Hct 46.6 (42-52) % MCV 90.8 (80-100) fL MCH 31.2 (25-34) pg MCHC 34.3 (32-36) g/dL RDW Std Deviation 54.0 H (36.4-46.3) fL RDW Coeff of Tiffanie 16.3 H (11.5-14.5) % Plt Count 195 (130-400) K/uL MPV 10.2 (7.4-10.4) fL Immature Gran % (Auto) 0.4 % Neut % (Auto) 68.8 % Lymph % (Auto) 14.8 % [place] % (Auto) 12.4 % Eos % (Auto) 3.4 % Baso % (Auto) 0.2 % Immature Gran # (Auto) 0.03 H (0.00-0.02) K/uL Neut # (Auto) 5.73 (1.4-6.5) K/uL Lymph # (Auto) 1.23 (1.2-3.4) K/uL [place] # (Auto) 1.03 H (0.11-0.59) K/uL Eos # (Auto) 0.28 (0-0.5) K/uL Baso # (Auto) 0.02 (0-0.2) K/uL PT 10.8 (9.0-12.0) Seconds INR 1.1 (0.9-1.1) Sodium 140 (136-145) mmol/L Potassium 3.0 L (3.5-5.1) mmol/L Chloride 107 (98-107) mmol/L Carbon Dioxide 26 (21-32) mmol/L Anion Gap 7.0 (3-11) BUN 22 H (7-18) mg/dl Creatinine 1.70 H (0.6-1.4) mg/dl Est Cr Clr Drug Dosing 80.3 ml/min Est GFR ( Amer) 54.5 Est GFR (Non-Af Amer) 47.0 BUN/Creatinine Ratio 13.1 (10-20) Glucose 84 (70-99) mg/dl Calcium 8.0 L (8.5-10.1) mg/dl Phosphorus (2.5-4.9) mg/dl Magnesium (1.8-2.4) mg/dl Total Bilirubin 0.7 (0.2-1) mg/dl Direct Bilirubin 0.2 (0-0.2) mg/dl AST 259 H (15-37) U/L ALT 140 H (12-78) U/L Alkaline Phosphatase 100 (45-117) U/L Troponin I 0.101 H* (0-0.045) ng/ml Total Protein 8.3 H (6.4-8.2) gm/dl Albumin 3.5 (3.4-5.0) gm/dl 03/26/19 Range/Units 16:43 WBC (4.8-10.8) K/uL RBC (4.7-6.1) M/uL Hgb (14.0-18.0) g/dL Hct (42-52) % MCV (80-100) fL MCH (25-34) pg MCHC (32-36) g/dL RDW Std Deviation (36.4-46.3) fL RDW Coeff of Tiffanie (11.5-14.5) % Plt Count (130-400) K/uL MPV (7.4-10.4) fL Immature Gran % (Auto) % Neut % (Auto) % Lymph % (Auto) % [place] % (Auto) % Eos % (Auto) % Baso % (Auto) % Immature Gran # (Auto) (0.00-0.02) K/uL Neut # (Auto) (1.4-6.5) K/uL Lymph # (Auto) (1.2-3.4) K/uL [place] # (Auto) (0.11-0.59) K/uL Eos # (Auto) (0-0.5) K/uL Baso # (Auto) (0-0.2) K/uL PT (9.0-12.0) Seconds INR (0.9-1.1) Sodium (136-145) mmol/L Potassium (3.5-5.1) mmol/L Chloride (98-107) mmol/L Carbon Dioxide (21-32) mmol/L Anion Gap (3-11) BUN (7-18) mg/dl Creatinine (0.6-1.4) mg/dl Est Cr Clr Drug Dosing ml/min Est GFR ( Amer) Est GFR (Non-Af Amer) BUN/Creatinine Ratio (10-20) Glucose (70-99) mg/dl Calcium (8.5-10.1) mg/dl Phosphorus 4.4 (2.5-4.9) mg/dl Magnesium 2.2 (1.8-2.4) mg/dl Total Bilirubin (0.2-1) mg/dl Direct Bilirubin (0-0.2) mg/dl AST (15-37) U/L ALT (12-78) U/L Alkaline Phosphatase (45-117) U/L Troponin I (0-0.045) ng/ml Total Protein (6.4-8.2) gm/dl Albumin (3.4-5.0) gm/dl PG Care Time/CCT Total # of Minutes Spent Total Time Spent with Patient: Total time spent is greater than 50% in coordination of care (as documented) at patient's floor/unit and/or counseling patient: (1) Hypothyroid Hypothyroidism type: unspecified Qualified Code(s): E03.9 - Hypothyroidism, unspecified (2) Chronic kidney disease Chronic kidney disease stage: unspecified stage Qualified Code(s): N18.9 - Chronic kidney disease, unspecified (3) Hyperlipidemia Hyperlipidemia type: unspecified Qualified Code(s): E78.5 - Hyperlipidemia, unspecified (4) Hypertension Hypertension type: unspecified Qualified Code(s): I10 - Essential (primary) hypertension (5) Edema Edema type: localized Qualified Code(s): R60.0 - Localized edema
[2019-03-27] MEDS: METOPROLOL TARTRATE 50 MG TAB PO SCH (20:43)
[2019-03-27] MEDS ORDERED: METOPROLOL TARTRATE 100 MG TAB PO SCH (21:00)
[2019-03-28] MEDS: LEVOTHYROXINE SODIUM 200 MCG TABLET PO SCH (05:45)
[2019-03-28] MEDS: HEPARIN SOD 5,000 UNIT/0.5 ML VIAL SQ SCH ×2 (05:45→13:17)
[2019-03-28 07:04] LABS: BUN Creatinine Ratio 13.7 (10-20); Calcium 7.9 mg/dl (8.5-10.1); Creatinine Clr Calc Pharmacy 79.7 ml/min; Est GFR (African American) 54.8; Est GFR (Non-African American) 47.3; Magnesium 2.2 mg/dl (1.8-2.4); Potassium 3.3 mmol/L (3.5-5.1)
[2019-03-28] MEDS: ASPIRIN 81 MG ECTAB PO SCH (07:19)
[2019-03-28] MEDS: ATORVASTATIN 40 MG TAB PO SCH (07:19)
[2019-03-28] MEDS: POTASSIUM CHLORIDE 20 MEQ TABCR PO SCH (07:19)
[2019-03-28] MEDS: METOPROLOL TARTRATE 50 MG TAB PO SCH (07:20)
[2019-03-28] MEDS ORDERED: REGADENOSON 0.4 MG/5 ML SYR IV ONE (08:07)
[2019-03-28] MEDS ORDERED: AMLODIPINE BESYLATE 5 MG TAB PO SCH (09:00)
[2019-03-28] MEDS ORDERED: POTASSIUM CHLORIDE 20 MEQ TABCR PO STA (09:38)
[2019-03-28] MEDS ORDERED: FUROSEMIDE 40 MG in SYRINGE 0 ML IV ONE (09:45)
--- NOTE | 2019-03-28 09:59 | Cardiology Progress Note ---
Date of Service March 28, 2019 Assessment & Plan (1) Edema: He has bilateral edema which is not surprising, he went home still fluid overloaded but he does not seem to have gained weight. I suspect his edema is dependent due to being on his feet for an entire shift 2 days in a row and get ting dependent edema. I would continue to diurese, he does not seem to have worsening of his kidney function. I do not think this represents an additional issue but he will need more diuresis. He has been diuresing well based on his description, his intake and output and his weight. (2) Elevated troponin: He did have a mildly elevated troponin, it is relatively stable compared to his last visit and I would not consider this an acute finding. I did supervise his nuclear stress test today, that should be read later today. If he has significant ischemia we may have to consider catheterization although even then I would be reluctant since he does not have anginal symptoms and he has abnormal kidney function although not terribly abnormal and I imagine he could tolerate the dye load. (3) Acute electrocardiogram changes: He does have lateral T wave inversion which has not changed compared to last admission, his echocardiogram last admission showed normal left ventricular function without wall motion abnormalities but I felt we needed to investigate this since he also has the enzyme abnormalities, especially in view of multiple risk factors for coronary artery disease. (4) Hypertension: He has significant hypertension, he has times when he has a reasonable blood pressure but most the time it is elevated. He did have bradycardia on a beta-lawanda, although some of that may have been due to sleep apnea. Certainly if his stress test is abnormal he should be on a beta-lawanda, if it is not perhaps we can avoid one. Subjective I saw the patient in nuclear for stress test which I supervised. He is feeling tired today, he is still having leg swelling and he was tired because he was up all night urinating. No shortness of breath, no chest discomfort during the stress test although he felt odd because of the Lexiscan. No electrocardiographic changes were seen. He tells me that he will be able to wear support stockings although he is not sure how he is going to get them on. Physical Exam Physical Exam: Constitutional: Alert, cooperative and in no distress. He is markedly obese HEENT: Unremarkable Neck: No jugular venous distention, carotid pulses are normal and equal bilaterally without bruits. Pulmonary: Clear to auscultation bilaterally. Cardiac: Regular rhythm with no murmur, gallop or rub. Abdomen: Soft, nontender with normal bowel sounds. Extremities: +2 bilateral pretibial pitting edema. Support stockings in place. Neurologic: No focal findings. Gait was not tested. Skin: No rash, ecchymoses or petechiae. Results & Data Vital Signs (Past 12 Hours) Vital Signs Temp Pulse Pulse Resp BP Pulse Ox 03/28/19 07:54 69 03/28/19 07:37 36.5 C 76 20 155/116 H 98 03/28/19 07:18 78 03/28/19 03:02 36.9 C 58 L 20 137/95 92 03/28/19 00:31 78 03/27/19 23:56 37.1 C 72 20 137/86 94 Laboratory Results Abnormal lab results 03/28/19 Range/Units 05:53 Potassium 3.3 L (3.5-5.1) mmol/L BUN 23 H (7-18) mg/dl Creatinine 1.69 H (0.6-1.4) mg/dl Calcium 7.9 L (8.5-10.1) mg/dl Diagnostic Findings Telemetry: Sinus rhythm, heart rate generally in the 80s. PG Care Time/CCT Total # of Minutes Spent Total Time Spent with Patient: Total time spent is greater than 50% in coordination of care (as documented) at patient's floor/unit and/or counseling patient: (1) Edema Edema type: localized Qualified Code(s): R60.0 - Localized edema (2) Hypertension Hypertension type: unspecified Qualified Code(s): I10 - Essential (primary) hypertension
--- NOTE | 2019-03-28 17:35 | Nephrology Consultation ---
Date of Consultation March 28, 2019 Assessment & Plan (1) Edema: This is related in part to his renal dysfunction, likely venous insufficiency and potentially to his undertreated thyroid condition. He is responding appropriately diuresis and thyroid hormone is being appropriately replaced. I agree that we should continue to maintain a negative fluid balance. He had adequate response to furosemide 40 mg yesterday and an additional 40 mg was provided today. I discussed discharge plans with Dr. Foster. The patient will be discharged on 40 milligrams of p.o. Lasix daily. I have encouraged Chris that close follow-up in the Nephrology Clinic will be necessary. I expect some improvement in his blood pressure with the addition of the daily diuretic. (2) Hypertension: Currently has reasonable control. His beta-lawanda has been adjusted du ring hospitalization. His DENIA-inhibitor was held due to kidney dysfunction. I can address restarting as an outpatient. (3) Chronic kidney disease: Overall, kidney function currently stable. Proteinuria will be followed up as an outpatient. His electrolytes are appropriate. Overall close outpatient follow-up is been stressed will schedule the patient to return to see me in the nephrology clinic within 1-2 weeks of hospital discharge. History of Present Illness Reason for Consultation: CKD, hypertension, edema Requesting Physician: Lolly Foster MD Attending Physician: Lolly Foster MD History of Present Illness Mr. Chris Pandya is a 48-year-old male with obesity (BMI 33), hypertension, PTC s/p thyroidectomy, tobacco abuse, and chronic kidney disease. I initially met the patient in June of 2015 when he was referred to the Nephrology Clinic for evaluation of hypertension. Fortunately at that time the patient did not return for follow-up. He then returned to the clinic once in June of 2017 but again was lost to follow-up. Chris has a history of medical noncompliance and non adherence. He has a complicated medical history. He was recently admitted to [facility] earlier this month with symptoms associated with profound hypothyroidism after not taking his replacement therapy. The patient was restarted on replacement therapy was resumed his home medications for management of accelerated blood pressure readings at that time. He was discharged with stable kidney function a creatinine of 1.86 milligram/deciliter. This does appear to be the patient's baseline kidney function over the past several months. Chris was unfortunately readmitted to the hospital after presented with increased heaviness in his legs as well as dyspnea with exertion. Dobutamine stress test was performed today. Results are pending. Nephrology consultation was requested to assist in karli gement of his renal dysfunction and volume status. Patient was provided IV furosemide yesterday which resulted in a negative fluid balance. His kidney function remains stable. Blood pressure appears to be reasonably well controlled. Chris feels well and hopes to be discharged home possibly today. Allergies Allergy/AdvReac Type Severity Reaction Status Date / Time No Known Allergies Allergy Unverified 03/26/19 16:55 Home Medications Home Medications Medication Instructions Recorded Confirmed Type amlodipine [Norvasc] 5 mg PO DAILY #30 tab 03/24/19 03/26/19 Rx aspirin [Ecotrin Low Strength] 81 mg PO DAILY #30 tab 03/24/19 03/26/19 Rx atorvastatin 80 mg PO QAM #30 tab 03/24/19 03/26/19 Rx levothyroxine [Synthroid] 200 mcg PO DAILYBB #30 tab 03/24/19 03/26/19 Rx metoprolol tartrate 100 mg PO BID #30 tab 03/24/19 03/26/19 Rx potassium chloride 20 meq PO DAILY #30 tab 03/24/19 03/26/19 Rx Patient History Medical History Hyperlipidemia Hypertension (Chronic) Kidney stone (Resolved) Myocardial infarct (Inactive) Surgical History History of thyroidectomy S/P thyroidectomy Family History Other Coronary heart disease Hypertension Social History Preferred Language: Hebrew Communication Ability: Effective Visual Impairment: No Limitations Hearing Ability: Normal Investment Fund Manager Required: No Beliefs That Will Affect Care: None marital status: Current Living Situation: Family current occupational status: employed Feels Safe at Home: Yes Smoking Status: Former smoker Second Hand Exposure: No ; Hx Alcohol Use: No Hx Substance Use: No Review of Systems Review of Systems: All systems reviewed & are unremarkable except as noted in HPI & below Physical Exam Constitutional: WD/WN, vitals as above + obese Eyes: + anicteric sclerae and EOM intact bilaterally Neck: trachea midline, no thyromegaly Respiratory: normal respiratory effort, lungs clear to auscultation Cardiovascular: Rate/Rhythm: regular rate and regular rhythm Heart Sounds: no murmur Extremities: + edema (1+ pitting edema of the arms and 1-2+ pitting edema legs bilaterally to the knees) Chest (Breasts): Chest: normal inspection of chest Gastrointestinal (Abdomen): normal bowel sounds, soft, nontender, no hepatosplenomegaly (Obese abdomen) Musculoskeletal: Extremities: extremities normal to inspection; no cyanosis and no clubbing Skin: no rashes, warm and dry Neurologic: moves all extremities and awake; no focal motor deficits Psychiatric: A+Ox3, euthymic affect Results & Data Vital Signs (Past 12 Hours) Vital Signs Temp Pulse Pulse Resp BP Pulse Ox 03/28/19 16:16 36.8 C 81 20 150/97 H 92 03/28/19 11:19 36.6 C 68 20 123/81 93 03/28/19 07:54 69 03/28/19 07:37 36.5 C 76 20 155/116 H 98 03/28/19 07:18 78 Laboratory Results Laboratory Results - last 24 hr 03/28/19 05:53 Sodium 138 Potassium 3.3 L Chloride 106 Carbon Dioxide 24 Anion Gap 8.0 BUN 23 H Creatinine 1.69 H Est Cr Clr Drug Dosing 79.7 Est GFR ( Amer) 54.8 Est GFR (Non-Af Amer) 47.3 BUN/Creatinine Ratio 13.7 Glucose 96 Calcium 7.9 L Magnesium 2.2 Specimen Hemolysis PG Care Time/CCT Total # of Minutes Spent Total Time Spent with Patient: Total time spent is greater than 50% in coordination of care (as documented) at patient's floor/unit and/or counseling patient: (1) Edema Edema type: localized Qualified Code(s): R60.0 - Localized edema (2) Hypertension Hypertension type: unspecified Qualified Code(s): I10 - Essential (primary) hypertension (3) Chronic kidney disease Chronic kidney disease stage: unspecified stage Qualified Code(s): N18.9 - Chronic kidney disease, unspecified
--- NOTE | 2019-03-28 18:02 | Discharge Summary ---
Date of Service March 28, 2019 Admission HPI Per Admitting Provider Chris Holm is a 48-year-old male with history of hypertension/hyperlipidemia/CKD/thyroid cancer status post thyroidectomy presenting with bilateral lower extremity edema and heaviness. Patient was recently admitted on 03/22 with suspected myxedema in setting of medication noncompliance. TSH at that time = 2.18 and T4 = 0.14. His troponin level was mildly elevated (0.092 and 0.102). He was evaluated by cardiology and was recommended to pursue an outpatient ischemic work-up which was being arranged. Mr. 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 He reports a mild disagreement with the business continuity specialist which resulted in him being dropped off blocks away from his destination. As he was walking to work he had to stop 2 times to rest because his legs felt weak and heavy. Due to his elevated troponin level discovered in the ER, cardiology was called by the ER attending and it was recommended that he be placed on observation status with plans for a stress test in the morning. Patient denies chest pain/heaviness/palpitations/shortness of breath. He denies dizziness/diaphoresis. His work entails being on his feet for prolonged periods of time. 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 He denies ever having to stop work due to chest discomfort or shortness of breath. He reports compliance with his medications. He was contacted by his family doctor today and was told to hold his lisinopril and chlorthalidone presumably due to renal function. Upon review of records, patient was instructed to hold these medications on discharge 03/24. He did continue however to take them until today. Principal Diagnosis Myxedema, volume overload, leg edema Discharge Exam Constitutional WD/WN, vitals as above + obese Eyes + anicteric sclerae and EOM intact bilaterally Neck trachea midline, no thyromegaly Respiratory normal respiratory effort, lungs clear to auscultation Cardiovascular Rate/Rhythm: regular rate and regular rhythm Heart Sounds: no murmur Extremities: + edema (trace in legs and arms, much improved) Chest (Breasts) Chest: normal inspection of chest Gastrointestinal (Abdomen) normal bowel sounds, soft, nontender, no hepatosplenomegaly (Obese abdomen) Musculoskeletal Extremities: extremities normal to inspection; no cyanosis and no clubbing Skin no rashes, warm and dry Neurologic moves all extremities and awake; no focal motor deficits Psychiatric A+Ox3, euthymic affect Discharge Data Allergies Allergy/AdvReac Type Severity Reaction Status Date / Time No Known Allergies Allergy Unverified 03/26/19 16:55 Consultations 03/26/19 17:21 ED Decision to Admit Stat 03/26/19 20:11 Consult Cardiology Routine 03/27/19 17:59 Consult Nephrology Routine Procedures Performed Nuclear stress test-normal CXR Hospital Course (1) Edema: Patient with bilateral lower extremity edema. Suspect that a large part of this is from venous insufficiency and dependent edema. Patient is a large gentleman, works on his feet, does not wear compression stockings. He has some visible varicosities. Patient's endocrine abnormalities contributing as well. He is volume overloaded as well which is likely secondary to hypothyroidism Echocardiogram last admission with preserved EF, moderate LVH, could not accurately assess the right ventricle though Edema isnow much improved after diuresis with IV lasix and application of MOSHE hose Suggested compression stockings to be worn at work and when he will be on his feet for extended period of time Ischemic work-up as below Continue Synthroid at home dose with close outpatient follow-up UA is with 4+ proteinuria-consulting nephrology-f/u as outpt -will send out on lasix 40mg po qday -dc home chlorthalidone -fluid restrict on discharge, low sodium diet recommended (2) Elevated troponin: Patient with mildly elevated troponin and remained stable at 0.13. EKG abnormal, stable from prior with T wave inversions in the anterolateral leads. Patient denies symptoms consistent with angina or ACS. He does have multiple risk factors to include hypertension, hyperlipidemia, CKD, tobacco use and morbid obesity. Nuclear stress test here was negative for ischemia Troponin may be elevated due to profound hypothryoidism in setting of CKD Continue aspirin 81 mg p.o. daily Continue atorvastatin 80 mg p.o. daily reduced metoprolol to 50 mg p.o. twice daily which is lower than his home dose due to bradycardia and that improved (3) Hypothyroid: Patient admitted last week with myxedema presumably from medication noncompliance. Elevated TSH again at 155 which is improved from greater than 200 last admission. -Continue Synthroid at current dose of 200mcg daily -Close outpatient follow-up and repeat TFTs in 3-4 weeks with PCP (4) Chronic kidney disease: Patient with CKD. BUN = 26, creatinine = 1.8 on admission Chlorthalidone and lisinopril have recently been held. He previously followed with nephrology, Dr. San, however his been noncompliant with follow-up as he thought at his last visit over a year ago that he did not have to come back because everything was stable Creatinine improved with IV lasix down to 1.6 He has 4+ proteinuria and 3+ blood in his urinalysis Avoid nephrotoxic agents Renal dosing were needed Follow BUN/creatinine/electrolytes and urine output as outpt -Consult nephrology appreciated--> plan to continue to hold lisinopril fo rnow -ok with lasix as above, BP control -follow up as outpt with Nephrology (5) Hyperlipidemia: Chronic. Stable. Continue atorvastatin 80 mg p.o. daily (6) Hypertension: Blood pressure elevated here -lowered metoprolol as above for bradycardia to 50 mg p.o. twice daily -Increased amlodipine to 10 mg daily -dcd lisinopril for acute renal insufficiency for now -dcd chlorthalidone in favor of lasix 40mg daily as above (7) S/P thyroidectomy: Noted -With significantly elevated TSH as above (8) Myxedema: Noted as above, secondary to noncompliance with medication -Replacing with levothyroxine (9) Hypokalemia: Potassium persistently low but improved with replacement and stopping chlorthalidone -Replace with potassium chloride p.o. 20 meq once daily as before -follow BMP with PCP at follow up appt (10) Proteinuria: 4+ on UA here Follow up outpt with Nephrology Could be contributing to edema -will need further workup as outpt (11) DVT prophylaxis: Heparin SQ was provided Disposition-discharge to home Total Time Total Time Spent Total Time Spent (In Minutes): 35 min Total Time Includes: Examination of the Patient, Discharge Planning, Medication Reconciliation and Communication With Other Providers (Dr. Sears, Dr. San) Discharge Plan Discharge Items Patient Disposition: Home - Self-Care Reason For Visit: EDEMA Discharge Diagnosis: Myxedema, volume overload Condition on Discharge: Good Health Concerns: You have been hospitalized for an acute medical problem. During your stay at [facility], we have made an effort to correct the problem that brought you to the hospital while keeping you as comfortable as possible. Medications were used to bring your condition under control and your discharge instructions will include directions for any medications you should take after leaving the hospital. Please make sure you see your Primary Care Provider as part of your follow up plan. Activity: As commented below Lifting: Gradually increase as tolerated Bathing: No limitations Exercise/Sports: Gradually increase as tolerated Exercise Comment: You should remain out of work until Sunday03/31/19 Weightbearing: Full weightbearing Non-emergency contact: Primary Care Provider and Fire Engine Operator Call non-emergency contact if: you have any medication questions and your symptoms worsen Follow-up/Referrals: Jonatan San DO [Physician] - (Please call for a follow up appointment within 1-2 weeks.) Kaley Narvaez MD [Physician] - 04/04/19 2:00 pm (Please, follow up at [facility] [place] Office with Dr. Narvaez on SundayApril 04 at 2:00 pm. *If you need to change this appointment, call the office at [phone].) Diet: Low Sodium (2gm) Fluids: 1800ml (7 cups) Addtl Attending Provider Instructions: You were admitted for leg swelling and fatigue that is from your low thyroid function and kidney problems. You had a stress test of the heart that was normal. It is very important that you continue to take your thyroid medication every day and have your doctor repeat your thyroid blood work in a few weeks. Please carefully follow the changes to your blood pressure medications on the medication list. You were started on a new water pill called furosemide (Lasix) that will be taken every morning. You will STOP your chlorthalidone and lisinopril. Your metoprolol was lowered in dose to 50mg twice a day, and your amlodipine was increased to 10mg once daily. Please follow up with Dr. Narvaez as scheduled, and with Dr. San-you will need to call for this appointment. You should wear your compression stockings whenever you will be at work and on your feet for long periods of time. Pending Studies at Discharge: No Stand-Alone Forms: My [facility], Work/School Release (Inpt) Medications and DC Order Prescriptions: New amlodipine 10 mg tablet 10 mg PO DAILY Qty: 30 RF: 0 furosemide [Lasix] 40 mg tablet 40 mg PO DAILY Qty: 30 RF: 0 Continued atorvastatin 40 mg Tablet 80 mg PO QAM Qty: 30 RF: 0 aspirin [Ecotrin Low Strength] 81 mg Tablet,Delayed Release (Dr/Ec) 81 mg PO DAILY Qty: 30 RF: 0 levothyroxine [Synthroid] 200 mcg Tablet 200 mcg PO DAILYBB Qty: 30 RF: 0 potassium chloride 20 mEq tablet,ER particles/crystals 20 meq PO DAILY Qty: 30 RF: 0 Changed metoprolol tartrate 100 mg Tablet 50 mg PO BID Qty: 30 RF: 0 Discontinued amlodipine [Norvasc] 5 mg Tablet 5 mg PO DAILY Qty: 30 RF: 0 Discharge Orders: Discharge Order (Routine); Ordered 03/28/19 Ordered By: Lolly Foster Admission Data Admit Date/Time: 03/26/19 18:34 Attending Provider: Lolly Foster Admit Provider: Shayla Camacho Primary Care Provider: Barbara Braun Other Providers: Shayla Camacho ; Dontrell Sears ; Jonatan San
--- NOTE | 2019-03-31 12:26 | Myocardial Perfusion Study ---
Date of Service March 31, 2019 Myocardial Perfusion Study [facility] Myocardial Perfusion Study Report Myocardial Perfusion Study Report One day nuclear medicine technetium 99m Cardiolite myocardial perfusion scan Clinical history: This stress test is being performed because of an elevated troponin and abnormal EKG. Comparison: None Technique: For the stress portion of the study, 33 mCi of technetium 99m Cardiolite IV was injected at 9:25 a.m. on March 28, 2019. Thirty minutes following the injection, imaging of the heart was performed in multiple projections. For the rest portion of the study, 10.8 mCi of technetium 99m Cardiolite was injected IV at 7:50 a.m. on March 28, 2019. One hour following the injection, imaging of the heart was performed in the same projections. Lexiscan administration: For the stress portion of the study, the patient received 0.4 mg of Lexiscan injected intravenously. The patient did not experience Lexiscan induced chest discomfort. There were no EKG changes. Following the study, the patient was hemodynamically stable and without complaints. Findings: The short axis, vertical long axis, horizontal long axis, rotating, and gated images were reviewed in detail. There was normal myocardial perfusion at both stress and rest thus excluding a prior myocardial infarction or evidence of stress induced myocardial ischemia. The left ventricle demonstrates normal systolic function without wall motion abnormalities. The left ventricular ejection fraction is 64%. Conclusions: 1. No scintigraphic evidence of a prior myocardial infarction or stress-induced myocardial ischemia. 2. No Lexiscan induced chest pain. 3. No Lexiscan induced EKG changes. 4. Normal left ventricular systolic function without wall motion abnormality. Left ventricular ejection fraction is 64%. Myocardial perfusion codes Indication for Procedure (1) Elevated troponin: (2) Abnormal ECG: Procedure Code Procedure 1: Myocardial Perfusion Codes: 82167 Cardiovascular Stress Test, multiple Procedure 2: Myocardial Perfusion Codes: 96853 Cardiovascular Stress Test, supervision only Procedure 3: Myocardial Perfusion Codes: 04757 Cardiovascular Stress Test, interpretation and report
== END 2019-03-28 18:38 | disposition home or self-care (01) ==
LOC: ED 13:09 → 2N 13:09 → SUATTDRO 18:34 → 2N 19:00

== ENCOUNTER 2022-10-12 07:25 | Inpatient (IN) ==
--- NOTE | 2022-10-12 07:44 | Emergency Department Note ---
Impression & Plan Hypoxia, CHF (congestive heart failure), Leukocytosis, TIFFANY (acute kidney injury) ED Provider Note NAME: ALISON ROBBINS AGE: 52 SEX: M : 1970 ARRIVES VIA: Walk-In INFORMANT: Patient ED PROVIDER(S): Jamarcus Hi DO CHIEF COMPLAINT: Shortness of breath HPI: Patient is a 52-year-old male who presents to the ER with past medical history of TIFFANY, idiopathic polyneuropathy, hypertension, hypothyroidism and pseudotumor cerebri who presents to the ER for shortness of breath. He notes that it started last night. His sister has been sick for the past 3 weeks with cough and congestion. His symptoms started with cough, congestion, and runny nose. He notes the postnasal drip is making him cough. He does have some shortness of breath. No chest pain. No belly pain. No nausea, vomiting, or diarrhea. He has been taking his Lasix and has not missed any doses with the e xception of today. No swelling of the legs. No dysuria urgency or frequency. No other exacerbating or remitting factors. PAST MEDICAL HISTORY:See Below PAST SURGICAL HISTORY:See Below FAMILY HISTORY:See Below SOCIAL HISTORY:See Below HOME MEDICATIONS:See Below ALLERGIES:See Below VITALS:See Below PHYSICAL EXAMINATION: GENERAL: Sitting up in bed, alert, disheveled, persistent cough EYE EXAM: normal conjunctiva. OROPHARYNX: mucous membranes are moist NECK: supple, no nuchal rigidity, no adenopathy, non-tender, No JVD LUNGS: Clear to auscultation. Normal chest wall mechanics HEART: no murmurs, S1 normal and S2 normal ABDOMEN: abdomen soft, non-tender, normo-active bowel sounds, no masses, no rebound or guarding. UPPER EXTREMITIES: upper extremities are grossly normal. LOWER EXTREMITIES: No pitting edema. NEURO EXAM: Normal sensorium, cranial nerves II-XII grossly intact, normal speech, no gross weakness of arms, no gross weakness of legs. MEDICAL DECISION MAKING: Patient is a 52-year-old male who presents ER for above-stated complaint. IV was established blood work was obtained. External records reviewed. Labs show mild leukocytosis of 13,000. No significant anemia. BMP with a creatinine of 5.1 up from a baseline of about 4. CO2 is slightly low at 17 which I favor is likely secondary to the renal failure. Troponin was mildly elevated at 60 again likely secondary to CKD. BNP elevated at 153. Viral panel was negative. Chest x-ray does appear to be volume overloaded. He was initially given steroids and nebulizer treatments secondary to the mild wheezing that he had with a history of smoking a pipe. Once the chest x-ray was obtained he was treated with Ni tropaste and given IV Lasix for CHF. He remained on 3 L nasal cannula as he was hypoxic at 85% on room air. He was discussed with the hospitalist for further evaluation management treatment. Triage Nursing notes reviewed. Limited review of prior medical records performed Vital Signs: reviewed and remarkable for HTN, hypoxia Differential diagnosis: Differential diagnoses includes but is not limited to pneumonia, bronchitis, COPD/Asthma exacerbation, pneumothorax, pulmonary embolism, congestive heart failure, acute coronary syndrome ER treatment provided: See below Diagnostics interpreted by me include EKG and cardiac monitoring as listed below: -Cardiac Monitoring: An order was placed for continuous cardiac monitoring. The monitor shows a rate of 90 with sinus rhythm. -ECG: Sinus rhythm rate of 95 Normal axis No PVCs QTc 515 -Laboratory studies:Interpreted by me as stated above in MDM and shown below. Imaging studies: Xrays: As interpreted by me: Portable AP upright 1 view of the chest shows volume overload CTs show: none Consultation(s): As described in MDM Procedures:none Critical Care: I have personally spent 32 minutes of critical care time in the direct management of this patient. This includes bedside care, interpretation of diagnostic studies, and testing, discussion with consultants, patient, and family members, and other required patient management activities. This 32 minutes is in excess of all separately billable procedures. Past Med/Surg History Medical History (Updated 10/12/22 @ 13:13 by Jamarcus Hi DO) COLLINS positive Autism spectrum disorder Chronic kidney disease Chronic low back pain Edema of both legs History of papillary adenocarcinoma of thyroid Hyperlipidemia Hypertension Hypothyroidism s/p thyroidectomy Legally blind due to visual field deficits Proteinuria Pseudotumor cerebri s/p transverse sinus stent 03/2021 Pulmonary nodules Vitamin D deficiency Surgical History History of thyroidectomy Family History Mother Hypertension Other Coronary heart disease Denies family history of Ovarian cancer Prostate cancer Myocardial infarction Breast cancer Colorectal cancer Social History Smoking Status: Current some day smoker Tobacco Type: Smokeless Tobacco (Dip or Chew) Second Hand Exposure: Yes; Do You Dip or Chew Tobacco: Yes; Hx Alcohol Use: Yes Alcohol type: beer Hx Substance Use: No Preferred Language: Upper Sorbian Communication Ability: Effective Visual Impairment: No Limitations Hearing Ability: Normal 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: No Beliefs That Will Affect Care: None marital status: Current Living Situation: Family Current Living Situation Comment: lives with parents current occupational status: disabled current occupation: unemployed Feels Safe at Home: Yes Dental Care, Regularly: No Physical Activity Frequency: Does not Exercise Assistive Devices: Glasses Allergies Allergies Allergy/AdvReac Type Severity Reaction Status Date / Time No Known Allergies Allergy Verified 09/22/22 09:57 Home Meds Previous Rx's Medication Instructions Recorded amlodipine 10 mg tablet 10 mg PO DAILY #90 tabs 11/22/21 levothyroxine 200 mcg tablet 200 mcg PO DAILY #90 tabs 11/22/21 (Synthroid) metoprolol tartrate 100 mg tablet 100 mg PO BID #180 tabs 11/22/21 potassium chloride 20 mEq 20 meq PO DAILY #90 tabs 11/22/21 tablet,extended release(part/cryst) levothyroxine 50 mcg tablet 50 mcg PO DAILY #90 tabs 12/06/21 furosemide 20 mg tablet 20 mg PO DAILY #90 tabs 03/01/22 aspirin 81 mg tablet,delayed 81 mg PO DAILY #90 tabs 03/20/22 release (Ecotrin Low Strength) cholecalciferol (vitamin D3) 1,250 50,000 unit PO .COMPLEX 12 weeks 03/20/22 mcg (50,000 unit) capsule #12 caps Results & Data (ED) Vital Signs Vital Signs - 24 hr 10/12/22 07:27 10/12/22 07:49 10/12/22 07:47 Temperature 36.9 C Temperature Source Temporal Artery Scan Pulse Rate 95 H 94 H Pulse Rate [Apical] Pulse Rate from SpO2 Sensor Respiratory Rate 22 Respiratory Effort / Characteristics Labored Respiratory Pattern Blood Pressure 204/128 H Blood Pressure Mean 153 Pulse Oximetry 92 88 L Oxygen Delivery Method Room Air Room Air Oxygen Flow Rate Sepsis Recent Fever Within 48 Hours No Sepsis New/Unexplained Change in Mental Status No Sepsis Action Taken by Nursing No Action Required Oxygen Flow Rate - Titration 3 Pulse Oximetry Post Tiitration 93 10/12/22 08:12 10/12/22 08:18 10/12/22 08:33 Temperature Temperature Source Pulse Rate 86 Pulse Rate [Apical] 88 Pulse Rate from SpO2 Sensor 90 Respiratory Rate 20 15 Respiratory Effort / Characteristics Non-Labored Spontaneous Spontaneous Labored Short of Breath Respiratory Pattern Rapid/Deep Blood Pressure 151/105 H Blood Pressure Mean 120 Pulse Oximetry 96 97 Oxygen Delivery Method Nasal Cannula Nasal Cannula Nebulizer Oxygen Flow Rate 3 3 Sepsis Recent Fever Within 48 Hours Sepsis New/Unexplained Change in Mental Status Sepsis Action Taken by Nursing Oxygen Flow Rate - Titration Pulse Oximetry Post Tiitration 10/12/22 09:01 10/12/22 09:30 10/12/22 10:00 Temperature Temperature Source Pulse Rate 91 H 93 H 84 Pulse Rate [Apical] Pulse Rate from SpO2 Sensor 93 H 85 84 Respiratory Rate 18 18 17 Respiratory Effort / Characteristics Respiratory Pattern Blood Pressure 136/100 125/89 110/79 Blood Pressure Mean 112 101 89 Pulse Oximetry 92 91 93 Oxygen Delivery Method Nasal Cannula Nasal Cannula Nasal Cannula Oxygen Flow Rate 3 3 3 Sepsis Recent Fever Within 48 Hours Sepsis New/Unexplained Change in Mental Status Sepsis Action Taken by Nursing Oxygen Flow Rate - Titration Pulse Oximetry Post Tiitration 10/12/22 10:31 Temperature Temperature Source Pulse Rate 80 Pulse Rate [Apical] Pulse Rate from SpO2 Sensor 79 Respiratory Rate 19 Respiratory Effort / Characteristics Respiratory Pattern Blood Pressure 110/71 Blood Pressure Mean 84 Pulse Oximetry 93 Oxygen Delivery Method Nasal Cannula Oxygen Flow Rate 3 Sepsis Recent Fever Within 48 Hours Sepsis New/Unexplained Change in Mental Status Sepsis Action Taken by Nursing Oxygen Flow Rate - Titration Pulse Oximetry Post Tiitration Laboratory Data 10/12/22 07:34 10/12/22 07:34 Lab Results 10/12/22 10/12/22 10/12/22 Range/Units 07:34 07:34 07:34 WBC 13.64 H (4.8-10.8) K/ul RBC 4.90 (4.70-6.10) M/uL Hgb 14.4 (14.0-18.0) g/dl Hct 41.4 L (42.0-52.0) % MCV 84.5 (80.0-100.0) fL MCH 29.4 (25.0-34.0) pg MCHC 34.8 (32.0-36.0) g/dL RDW Std Deviation 43.1 (36.4-46.3) fL RDW Coeff of Tiffanie 14.0 (11.5-14.5) % Plt Count 323 (130-400) K/uL MPV 10.9 (9.4-12.4) fL Immature Gran % (Auto) 0.4 % Neut % (Auto) 77.3 % Lymph % (Auto) 10.0 % Zavala % (Auto) 9.7 % Eos % (Auto) 2.0 % Baso % (Auto) 0.6 % Neut # (Auto) 10.54 H (1.40-6.50) K/uL Lymph # (Auto) 1.37 (1.2-3.4) K/uL Zavala # (Auto) 1.32 H (0.11-0.59) K/uL Eos # (Auto) 0.27 (0-0.50) K/uL Baso # (Auto) 0.08 (0-0.2) K/uL Immature Gran # (Auto) 0.06 (0.01-0.20) K/uL Sodium 140 (136-145) mmol/L Potassium 4.0 (3.5-5.1) mmol/L Chloride 109 H (98-107) mmol/L Carbon Dioxide 17 L (21-32) mmol/L Anion Gap 14 H (3-11) BUN 50 H (6-23) mg/dl Creatinine 5.10 H* (0.6-1.4) mg/dl Est Cr Clr Drug Dosing 22.7 ml/min Est GFR ( Amer) 14.0 ml/min Est GFR (Non-Af Amer) 12.1 ml/min BUN/Creatinine Ratio 9.8 L (10-20) Glucose 115 H (70-99(Fasting)) mg/dl Calcium 7.8 L (8.6-10.3) mg/dl Total Bilirubin 0.7 (0.2-1.0) mg/dl AST 26 (13-39) U/L ALT 25 (7-52) U/L Alkaline Phosphatase 104 (34-104) U/L Troponin I High Sens 60.8 H* (0-20) pg/ml B-Natriuretic Peptide 153 H (0-100) pg/ml Total Protein 8.4 H (6.0-8.3) gm/dl Albumin 4.1 (3.4-5.0) gm/dl Globulin 4.3 H (2.5-4.0) gm/dl Albumin/Globulin Ratio 1.0 (0.9-2) Lipase 41 (11-82) U/L Adenovirus (PCR) (NotDetected) B. pertussis DNA (PCR) (NotDetected) B.parapertussis DNA PCR (NotDetected) C. pneumoniae DNA (PCR) (NotDetected) Coronavirus OC43 (PCR) (NotDetected) Coronavirus HKU1 (PCR) (NotDetected) Coronavirus 229E (PCR) (NotDetected) SARS-CoV-2 (PCR) (NotDetected) Coronavirus NL63 (PCR) (NotDetected) Human Metapneumovir PCR (NotDetected) Influenza Type A (PCR) (NotDetected) Influenza Type B (PCR) (NotDetected) M. pneumoniae (PCR) (NotDetected) Parainfluenza 1 (PCR) (NotDetected) Parainfluenza 2 (PCR) (NotDetected) Parainfluenza 3 (PCR) (NotDetected) Parainfluenza 4 (PCR) (NotDetected) RSV (PCR) (NotDetected) Entero/Rhino (PCR) (NotDetected) 10/12/22 Range/Units 08:29 WBC (4.8-10.8) K/ul RBC (4.70-6.10) M/uL Hgb (14.0-18.0) g/dl Hct (42.0-52.0) % MCV (80.0-100.0) fL MCH (25.0-34.0) pg MCHC (32.0-36.0) g/dL RDW Std Deviation (36.4-46.3) fL RDW Coeff of Tiffanie (11.5-14.5) % Plt Count (130-400) K/uL MPV (9.4-12.4) fL Immature Gran % (Auto) % Neut % (Auto) % Lymph % (Auto) % Zavala % (Auto) % Eos % (Auto) % Baso % (Auto) % Neut # (Auto) (1.40-6.50) K/uL Lymph # (Auto) (1.2-3.4) K/uL Zavala # (Auto) (0.11-0.59) K/uL Eos # (Auto) (0-0.50) K/uL Baso # (Auto) (0-0.2) K/uL Immature Gran # (Auto) (0.01-0.20) K/uL Sodium (136-145) mmol/L Potassium (3.5-5.1) mmol/L Chloride (98-107) mmol/L Carbon Dioxide (21-32) mmol/L Anion Gap (3-11) BUN (6-23) mg/dl Creatinine (0.6-1.4) mg/dl Est Cr Clr Drug Dosing ml/min Est GFR ( Amer) ml/min Est GFR (Non-Af Amer) ml/min BUN/Creatinine Ratio (10-20) Glucose (70-99(Fasting)) mg/dl Calcium (8.6-10.3) mg/dl Total Bilirubin (0.2-1.0) mg/dl AST (13-39) U/L ALT (7-52) U/L Alkaline Phosphatase (34-104) U/L Troponin I High Sens (0-20) pg/ml B-Natriuretic Peptide (0-100) pg/ml Total Protein (6.0-8.3) gm/dl Albumin (3.4-5.0) gm/dl Globulin (2.5-4.0) gm/dl Albumin/Globulin Ratio (0.9-2) Lipase (11-82) U/L Adenovirus (PCR) Not Detected (NotDetected) B. pertussis DNA (PCR) Not Detected (NotDetected) B.parapertussis DNA PCR Not Detected (NotDetected) C. pneumoniae DNA (PCR) Not Detected (NotDetected) Coronavirus OC43 (PCR) Not Detected (NotDetected) Coronavirus HKU1 (PCR) Not Detected (NotDetected) Coronavirus 229E (PCR) Not Detected (NotDetected) SARS-CoV-2 (PCR) Not Detected (NotDetected) Coronavirus NL63 (PCR) Not Detected (NotDetected) Human Metapneumovir PCR Not Detected (NotDetected) Influenza Type A (PCR) Not Detected (NotDetected) Influenza Type B (PCR) Not Detected (NotDetected) M. pneumoniae (PCR) Not Detected (NotDetected) Parainfluenza 1 (PCR) Not Detected (NotDetected) Parainfluenza 2 (PCR) Not Detected (NotDetected) Parainfluenza 3 (PCR) Not Detected (NotDetected) Parainfluenza 4 (PCR) Not Detected (NotDetected) RSV (PCR) Not Detected (NotDetected) Entero/Rhino (PCR) Not Detected (NotDetected) Administered Medications Nitroglycerin (Nitroglycerin 2% Ointment 30gm Tube) 2 inch EXT Q6H EMERITA Stop: 11/11/22 08:14 Last Admin: 10/12/22 08:29 Dose: 2 inch Documented By: MMG Discontinued Medications Albuterol (Albuterol 0.083% Nebu Soln 3 Ml Vial) 10 mg NEB NOW STA; Protocol Stop: 10/12/22 07:53 Last Admin: 10/12/22 08:12 Dose: 10 mg Documented By: HANNAH Furosemide (Furosemide 40 Mg/4 Ml Vial) 40 mg IV NOW STA Stop: 10/12/22 08:12 Last Admin: 10/12/22 08:30 Dose: 40 mg Documented By: MMG Methylprednisolone (Methylprednisolone 125 Mg/2 Ml Vial) 60 mg IV NOW STA Stop: 10/12/22 07:53 Last Admin: 10/12/22 08:05 Dose: 60 mg Documented By: TEAGAN Nicotine (Nicotine 14 Mg/24 Hr Patch) 14 mg TD ONE STA Stop: 10/12/22 11:07 Last Admin: 10/12/22 11:16 Dose: 14 mg Documented By: KMO Imaging Data Radiologist's Impression: Chest X-Ray 10/12/22 07:34 XR chest 1V portable HISTORY: 52 years-old Male Chest pain, nonspecific COMPARISON: 03/26/2019 TECHNIQUE: AP view of the chest FINDINGS: Cardiac silhouette is enlarged. Pulmonary vascular congestion with reticular interstitial densities. Mid to lower lung zone predominant airspace opacities. Small pleural effusions. Surgical clips of the right neck. No pneumothorax. Degenerative changes of the shoulders and spine. IMPRESSION: 1. Cardiomegaly with pulmonary edema. 2. Small pleural effusions with mild bibasilar consolidation. ACT 112: Negative or not required by law. The above report was generated using voice recognition software. It may contain grammatical, syntax or spelling errors. Electronically signed by: William Katz M.D. 10/12/2022 8:12 AM Discharge Plan Visit Data Chief Complaint: Shortness of Breath/Dyspnea Stated Complaint: PROBLEMS BREATHING ED Provider: Jamarcus Hi Discharge Problem: Hypoxia, CHF (congestive heart failure), Leukocytosis, TIFFANY (acute kidney injury) Forms Stand Alone Forms: [facility] Vault Prescriptions Prescriptions: No Action amlodipine 10 mg tablet 10 mg PO DAILY Qty: 90 3RF metoprolol tartrate 100 mg tablet 100 mg PO BID Qty: 180 3RF potassium chloride 20 mEq tablet,ER particles/crystals 20 meq PO DAILY Qty: 90 3RF levothyroxine [Synthroid] 200 mcg tablet 200 mcg PO DAILY Qty: 90 3RF levothyroxine 50 mcg tablet 50 mcg PO DAILY Qty: 90 3RF Rx Instructions: Take together with the 200 mcg tablet for a total daily dose for 250 mcg. aspirin [Ecotrin Low Strength] 81 mg tablet,delayed release (DR/EC) 81 mg PO DAILY Qty: 90 3RF cholecalciferol (vitamin D3) 1,250 mcg (50,000 unit) capsule 50,000 unit PO .COMPLEX 84 Days Qty: 12 0RF Rx Instructions: 50,000 units PO once weekly; PER PT HE IS OUT OF MEDICATION furosemide 20 mg tablet 20 mg PO DAILY Qty: 90 3RF Referrals Referrals: Kaley Narvaez MD [Primary Care Provider] -
[2022-10-12] MEDS ORDERED: ALBUTEROL 0.083% NEBU SOLN 3 ML VIAL NEB STA (07:52)
[2022-10-12] MEDS ORDERED: methylPREDNISolone 125 MG/2 ML VIAL IV STA (07:52)
[2022-10-12] MEDS ORDERED: FUROSEMIDE 40 MG/4 ML VIAL IV STA (08:11)
--- NOTE | 2022-10-12 08:13 | XRay Report ---
XR chest 1V portable HISTORY: 52 years-old Male Chest pain, nonspecific COMPARISON: 03/26/2019 TECHNIQUE: AP view of the chest FINDINGS: Cardiac silhouette is enlarged. Pulmonary vascular congestion with reticular interstitial densities. Mid to lower lung zone predominant airspace opacities. Small pleural effusions. Surgical clips of the right neck. No pneumothorax. Degenerative changes of the shoulders and spine. IMPRESSION: 1. Cardiomegaly with pulmonary edema. 2. Small pleural effusions with mild bibasilar consolidation. ACT 112: Negative or not required by law. The above report was generated using voice recognition software. It may contain grammatical, syntax o r spelling errors. Electronically signed by: William Katz M.D. 10/12/2022 8:12 AM
[2022-10-12 08:29] LABS: Basophils # (auto) 0.08 K/uL (0-0.2); Basophils % (auto) 0.6 %; Eosinophils # (auto) 0.27 K/uL (0-0.50); Hematocrit (blood only) 41.4 % (42.0-52.0); Hemoglobin 14.4 g/dl (14.0-18.0); Immature Granulocytes # (auto) 0.06 K/uL (0.01-0.20); Immature Granulocytes % (auto) 0.4 %; Lymphocytes # (auto) 1.37 K/uL (1.2-3.4); Mean Corpuscular Hemoglobin 29.4 pg (25.0-34.0); Mean Corpuscular Hgb Conc 34.8 g/dL (32.0-36.0); Mean Corpuscular Volume 84.5 fL (80.0-100.0); Mean Platelet Volume 10.9 fL (9.4-12.4); Monocytes # (auto) 1.32 K/uL (0.11-0.59); Monocytes % (auto) 9.7 %; Neutrophils # (auto) 10.54 K/uL (1.40-6.50); Neutrophils % (auto) 77.3 %; Platelet Count 323 K/uL (130-400); RDW Standard Deviation 43.1 fL (36.4-46.3); White Blood Count 13.64 K/ul (4.8-10.8)
[2022-10-12] MEDS: NITROGLYCERIN 2% OINTMENT 30GM TUBE EXT SCH ×3 (08:29→21:51)
[2022-10-12 08:58] LABS: Calcium 7.8 mg/dl (8.6-10.3)
[2022-10-12 08:59] LABS: Albumin Level 4.1 gm/dl (3.4-5.0); BUN Creatinine Ratio 9.8 (10-20); Bilirubin,Total 0.7 mg/dl (0.2-1.0); Creatinine Clr Calc Pharmacy 22.7 ml/min; Est GFR (Non-African American) 12.1 ml/min; Globulin 4.3 gm/dl (2.5-4.0); Total Protein 8.4 gm/dl (6.0-8.3); Troponin I High Sensitivity 60.8 pg/ml (0-20)
[2022-10-12 09:39] LABS: Adenovirus PCR Not Detected (NotDetected); Bordetella parapertussis PCR Not Detected (NotDetected); Bordetella pertussis PCR Not Detected (NotDetected); Chlamydia pneumoniae PCR Not Detected (NotDetected); Coronavirus 229E PCR Not Detected (NotDetected); Coronavirus CoV-2 (COVID19)PCR Not Detected (NotDetected); Coronavirus HKU1 PCR Not Detected (NotDetected); Coronavirus NL63 PCR Not Detected (NotDetected); Coronavirus OC43PCR Not Detected (NotDetected); Human Metapneumovirus PCR Not Detected (NotDetected); Influenza A PCR Not Detected (NotDetected); Influenza B PCR Not Detected (NotDetected); Mycoplasma pneumoniae PCR Not Detected (NotDetected); Parainfluenza Virus 1 PCR Not Detected (NotDetected); Parainfluenza Virus 2 PCR Not Detected (NotDetected); Parainfluenza Virus 3 PCR Not Detected (NotDetected); Parainfluenza Virus 4 PCR Not Detected (NotDetected); Respiratory Syncytial VirusPCR Not Detected (NotDetected); Rhinovirus/Enterovirus PCR Not Detected (NotDetected)
--- NOTE | 2022-10-12 09:48 | History & Physical Report ---
Date of Service October 12, 2022 Assessment & Plan (1) Acute respiratory failure with hypoxia: Plan: 52-year-old male with past medical history of hypothyroidism, CKD 4-5, hypertension, HLD, autism spectrum disorder, papillary adenocarcinoma of the thyroid, blindness, pseudotumor cerebri, neuropathy who presents with acute shortness of breath this morning in setting of systolic of 200+ and hypervolemia. -Saturating 93% on 3 L, titrate to 90% or greater -cxr: cardiomegaly w/ pulmonary edema. small pleural effusions w/ mild bibasilar consolidation -resp biofire neg -Lower suspicion for COPD exac; dc methylpred -wbc 13s. bibasilar consolidation: more likely from edema, but will check procal -The decrease in blood pressure after Nitropaste treatment is greater than expected; considered nitro hypersensitivity vs R sided heart involvement -Considered flash pulm edema -Continue Nitropaste, monitor BP -EKG without significant acute ischemic concerns -Trend hstrop -Check echo, consider outpatient cardiology follow up -L echo 03/22/19,EF 60-65, no RWMA. mod concentric LVH. -Nuclear stress test 04/04/19 was negative for ischemia -Resume home regimen Lasix for now, will discuss with nephro (2) Acute kidney injury superimposed on CKD: Plan: - Patient follows [facility] nephrology, progressive worsening of kidney function in the past few months has been noted. Will consult (3) Postnasal drip: Plan: -Flonase (4) Hypertension: Plan: - Continue home metoprolol tartrate 100mg PO BID, amlodipine 10mg PO daily, and furosemide 20mg PO daily (5) Hyperlipidemia: Plan: -Not on statin therapy. Check A1c and-lipids in the morning (6) Hypothyroidism: Plan: -Continue home levothyroxine 50 mcg. Check TSH despite hospitalization as had had profound hypothyroidism in past (7) Legally blind: Plan: -Chronic (8) Pseudotumor cerebri: Plan: - Status post sigmoid sinus venous stent 03/2021 (9) Tobacco use disorder: Plan: -Nicotine patch 14 mg will be ordered (10) Idiopathic polyneuropathy: Plan: -Per outpatient neurology, did not tolerate Cymbalta Plan Diet: Heart healthy, low-sodium DVT prophylaxis: SQ heparin Code: Full Dispo: Med surg History of Present Illness Chief Complaint: Dyspnea Primary Care Provider: Kaley Narvaez MD 52-year-old male with past medical history of hypothyroidism, CKD 4-5, hypertension, tobacco use disorder, HLD, autism spectrum disorder, papillary adenocarcinoma of the thyroid, blindness, pseudotumor cerebri, neuropathy who presented with shortness of breath, postnasal drip, coughing and gagging this morning. He was at rest and was planning to attend his outpatient kidney biopsy. His sister took him to the ED because of the dyspnea. Patient denies fevers, chills, chest pain, shortness of breath, nausea, vomiting, abdominal pain, diarrhea, bloody stool, or urinary symptoms. Denies history of asthma or COPD. After the treatment in the ED, patient notes that his breathing is much improved. His initial blood pressure of 204/128 improved significantly after the administration of Nitropaste and Lasix, 110/71 on most recent, without administration of antihypertensives. Patient took his home medications this morning minus the baby aspirin and furosemide. He states he has not been following a particular diet and eats everything from homemade soups to pizza. ED course: methylpred 60mg IV, duoneb, nitro paste, and Lasix 40mg IV Allergies Allergy/AdvReac Type Severity Reaction Status Date / Time No Known Allergies Allergy Verified 09/22/22 09:57 Home Medications Medication Instructions Recorded Confirmed Type amlodipine 10 mg tablet 10 mg PO DAILY #90 tabs 11/22/21 10/12/22 Rx levothyroxine 200 mcg tablet 200 mcg PO DAILY #90 tabs 11/22/21 10/12/22 Rx (Synthroid) metoprolol tartrate 100 mg tablet 100 mg PO BID #180 tabs 11/22/21 10/12/22 Rx potassium chloride 20 mEq 20 meq PO DAILY #90 tabs 11/22/21 10/12/22 Rx tablet,extended release(part/cryst) levothyroxine 50 mcg tablet 50 mcg PO DAILY #90 tabs 12/06/21 10/12/22 Rx furosemide 20 mg tablet 20 mg PO DAILY #90 tabs 03/01/22 10/12/22 Rx aspirin 81 mg tablet,delayed 81 mg PO DAILY #90 tabs 03/20/22 10/12/22 Rx release (Ecotrin Low Strength) cholecalciferol (vitamin D3) 1,250 50,000 unit PO .COMPLEX 12 weeks 03/20/22 10/12/22 Rx mcg (50,000 unit) capsule #12 caps Past Med/Surg History Medical History (Updated 10/12/22 @ 13:13 by Jamarcus Hi DO) COLLINS positive Autism spectrum disorder Chronic kidney disease Chronic low back pain Edema of both legs History of papillary adenocarcinoma of thyroid Hyperlipidemia Hypertension Hypothyroidism s/p thyroidectomy Legally blind due to visual field deficits Proteinuria Pseudotumor cerebri s/p transverse sinus stent 03/2021 Pulmonary nodules Vitamin D deficiency Surgical History History of thyroidectomy Family History Mother Hypertension Other Coronary heart disease Denies family history of Ovarian cancer Prostate cancer Myocardial infarction Breast cancer Colorectal cancer Social History Smoking Status: Current some day smoker Tobacco Type: Smokeless Tobacco (Dip or Chew) Second Hand Exposure: Yes; Do You Dip or Chew Tobacco: Yes; Hx Alcohol Use: Yes Alcohol type: beer Hx Substance Use: No Preferred Language: Irish Communication Ability: Effective Visual Impairment: No Limitations Hearing Ability: Normal [employer] Required: No Beliefs That Will Affect Care: None marital status: Current Living Situation: Family Current Living Situation Comment: lives with parents current occupational status: disabled current occupation: unemployed Feels Safe at Home: Yes Dental Care, Regularly: No Physical Activity Frequency: Does not Exercise Assistive Devices: Glasses Review of Systems Review of Systems: All systems reviewed & are unremarkable except as noted in HPI & below Physical Exam Physical Exam: General: Grossly A&O. NAD. Cooperative. HEENT: Atraumatic, normocephalic. EOMI. negative for JVD (faintly noted at 1 fingerbreadth on right) Pulm: CTAB. -wheezes, -rales, -rhonchi. Mildly diminished diffusely. No accessory muscle use. Patient appears huffing slightly, which he attributes to sinus congestion. Exam may be limited by habitus. Cardiac: RRR, -mrg. Puffy appearing ankles, no pitting edema. Abdominal: Nontender, nondistended, soft. Musculoskeletal: Moving all extremities. Integumentary: Warm, dry, intact. Results & Data Results & Data Vital Signs (Past 12 Hours) Vital Signs Temp Pulse Pulse Resp BP Pulse Ox O2 Del Method 10/12/22 09:30 93 H 18 125/89 91 Nasal Cannula 10/12/22 09:01 91 H 18 136/100 92 Nasal Cannula 10/12/22 08:33 86 15 151/105 H 97 Nebulizer 10/12/22 08:18 Nasal Cannula 10/12/22 08:12 88 20 96 Nasal Cannula 10/12/22 07:47 94 H 10/12/22 07:49 88 L Room Air 10/12/22 07:27 36.9 C 95 H 22 204/128 H 92 Room Air O2 Flow Rate 10/12/22 09:30 3 10/12/22 09:01 3 10/12/22 08:33 10/12/22 08:18 3 10/12/22 08:12 3 10/12/22 07:47 10/12/22 07:49 10/12/22 07:27 Laboratory Results Cardiac Enzymes 10/12/22 10/12/22 Range/Units 07:34 07:34 AST 26 (13-39) U/L Troponin I High Sens 60.8 H* (0-20) pg/ml B-Natriuretic Peptide 153 H (0-100) pg/ml Coagulation 10/12/22 Range/Units 07:34 B-Natriuretic Peptide 153 H (0-100) pg/ml CBC 10/12/22 Range/Units 07:34 WBC 13.64 H (4.8-10.8) K/ul RBC 4.90 (4.70-6.10) M/uL Hgb 14.4 (14.0-18.0) g/dl Hct 41.4 L (42.0-52.0) % Plt Count 323 (130-400) K/uL Neut # (Auto) 10.54 H (1.40-6.50) K/uL Lymph # (Auto) 1.37 (1.2-3.4) K/uL Gage # (Auto) 1.32 H (0.11-0.59) K/uL Eos # (Auto) 0.27 (0-0.50) K/uL Baso # (Auto) 0.08 (0-0.2) K/uL Comprehensive Metabolic Panel 10/12/22 Range/Units 07:34 Sodium 140 (136-145) mmol/L Potassium 4.0 (3.5-5.1) mmol/L Chloride 109 H (98-107) mmol/L Carbon Dioxide 17 L (21-32) mmol/L BUN 50 H (6-23) mg/dl Creatinine 5.10 H* (0.6-1.4) mg/dl Glucose 115 H (70-99(Fasting)) mg/dl Calcium 7.8 L (8.6-10.3) mg/dl AST 26 (13-39) U/L ALT 25 (7-52) U/L Alkaline Phosphatase 104 (34-104) U/L Total Protein 8.4 H (6.0-8.3) gm/dl Albumin 4.1 (3.4-5.0) gm/dl Intake and Output 10/11/22 10/12/22 10/12/22 22:59 06:59 14:59 Other: Weight 117.3 kg Weight Measurement Method Chair Scale Patient Weight 10/13/22 06:59 Weight 117.3 kg Diagnostic Findings Chest X-Ray 10/12/22 07:34 XR chest 1V portable HISTORY: 52 years-old Male Chest pain, nonspecific COMPARISON: 03/26/2019 TECHNIQUE: AP view of the chest FINDINGS: Cardiac silhouette is enlarged. Pulmonary vascular congestion with reticular interstitial densities. Mid to lower lung zone predominant airspace opacities. Small pleural effusions. Surgical clips of the right neck. No pneumothorax. Degenerative changes of the shoulders and spine. IMPRESSION: 1. Cardiomegaly with pulmonary edema. 2. Small pleural effusions with mild bibasilar consolidation. ACT 112: Negative or not required by law. The above report was generated using voice recognition software. It may contain grammatical, syntax or spelling errors. Electronically signed by: William Katz M.D. 10/12/2022 8:12 AM Code Status & VTE Plan Code Status full VTE Prophylaxis Plan VTE Prophylaxis will be ordered: Yes Supervising Physician Co-Signing Physician Notes Patient seen and examined, chart reviewed, case discussed with Dr. Retana and I agree with the assessment and plan as documented above. In brief, patient is a 52yo male with history of hypothyroidism, CKD, HTN, HLP and progressive CKD (+cANCA and COLLINS) presenting with SOB/cough and congestion. Patient was scheduled to have an outpatient kidney biopsy performed today. Woke with SOB. Upon arrival to the ER he was markedly hypertensive at 204/128. He was treated with nitro paste, Lasix and Solumedrol Now HD improved. No SOB. No additional complaints at this time. On exam he is resting comfortably, NAD MMM, neck supple +S1/S2, regular, no m/r/g Lungs CTA Abd soft, NT/ND Ext warm, well perfused Labs and images reviewed. Significant for WBC=13.64 BUN=50 and Cr=5.1 (increased from 47 and 4.4) CXR with cardiomegaly and edema with small effusions and bibasilar consolidations Assessment/Plan: Respiratory distress, marked hypertension - possible pulmonary edema. Now im proved after Nitro and Lasix -Monitor -Resume PO Lasix - additional IV overnight if needed -Check 2D echo -Remainder of plan as above Resident Activity Tracking Resident Involvement: Resident Care Provided Care Provided: Adult Hospital Medicine (4) Hypertension Hypertension type: unspecified Qualified Code(s): I10 - Essential (primary) hypertension (5) Hyperlipidemia Hyperlipidemia type: unspecified Qualified Code(s): E78.5 - Hyperlipidemia, unspecified
[2022-10-12] MEDS ORDERED: NICOTINE 14 MG/24 HR PATCH TD STA (11:06)
--- NOTE | 2022-10-12 13:22 | Billing Data ---
Date of Service October 12, 2022 Coding Level of Care Code 23647 INT INP/OBS CARE
[2022-10-12] MEDS ORDERED: POLYETHYLENE (MIRALAX) 17 GM PACK PO PRN (13:52)
[2022-10-12] MEDS ORDERED: ACETAMINOPHEN 325 MG TAB PO PRN (13:52)
--- NOTE | 2022-10-12 14:01 | Electrocardiogram Report ---
Test Reason : Blood Pressure : / mmHG Vent. Rate : 095 BPM Atrial Rate : 095 BPM P-R Int : 182 ms QRS Dur : 078 ms QT Int : 410 ms P-R-T Axes : 038 049 098 degrees QTc Int : 515 ms Sinus rhythm with Premature atrial complexes Premature ventricular complexes Low voltage QRS Nonspecific T wave abnormality Prolonged QT Abnormal ECG When compared with ECG of 26-MAR-2019 13:55, Vent. rate has increased BY 36 BPM T wave inversion less evident in Lateral leads QT has lengthened Confirmed by Amilcar Schofield ([id number]) on 10/12/2022 2:01:33 PM Referred By: Confirmed By:Amilcar Schofield
[2022-10-12 14:34] LABS: Thyroid Stimulating Hormone 18.408 uIu/ml (0.300-4.500)
[2022-10-12 15:13] LABS: T4 Free Thyroxine 1.14 ng/dl (0.61-1.60)
--- NOTE | 2022-10-12 16:05 | XCELERA ---
[id number] \\[id number]___[id number]
[2022-10-12] MEDS: FLUTICASONE PROPIONATE NA SPR 16 GM BTL NAE SCH (17:42)
[2022-10-12] MEDS: HEPARIN SOD 5,000 UNIT/0.5 ML VIAL SQ SCH (17:42)
[2022-10-12] MEDS: METOPROLOL TARTRATE 100 MG TAB PO SCH (21:45)
[2022-10-13] MEDS ORDERED: CALCIUM CARBONATE 500 MG CHEWABLE TAB PO PRN (00:35)
[2022-10-13] MEDS: NITROGLYCERIN 2% OINTMENT 30GM TUBE EXT SCH ×4 (02:18→21:04)
[2022-10-13] MEDS: LEVOTHYROXINE SODIUM 200 MCG TABLET PO SCH (05:49)
[2022-10-13] MEDS: HEPARIN SOD 5,000 UNIT/0.5 ML VIAL SQ SCH ×3 (05:49→21:00)
[2022-10-13] MEDS: LEVOTHYROXINE SODIUM 50 MCG TABLET PO SCH (05:49)
[2022-10-13 08:15] LABS: Basophils # (auto) 0.03 K/uL (0-0.2); Basophils % (auto) 0.1 %; Hematocrit (blood only) 37.8 % (42.0-52.0); Hemoglobin 12.6 g/dl (14.0-18.0); Immature Granulocytes % (auto) 0.5 %; Lymphocytes # (auto) 0.87 K/uL (1.2-3.4); Mean Corpuscular Hemoglobin 29.2 pg (25.0-34.0); Mean Corpuscular Hgb Conc 33.3 g/dL (32.0-36.0); Mean Corpuscular Volume 87.5 fL (80.0-100.0); Mean Platelet Volume 10.9 fL (9.4-12.4); Monocytes # (auto) 1.82 K/uL (0.11-0.59); Monocytes % (auto) 8.4 %; Neutrophils # (auto) 18.91 K/uL (1.40-6.50); Platelet Count 312 K/uL (130-400); RDW Coefficient of Variation 14.5 % (11.5-14.5); RDW Standard Deviation 46.4 fL (36.4-46.3); Red Blood Count 4.32 M/uL (4.70-6.10); White Blood Count 21.73 K/ul (4.8-10.8)
[2022-10-13 08:32] LABS: Bilirubin,Total 0.5 mg/dl (0.2-1.0); Calcium 7.3 mg/dl (8.6-10.3); Chol HDL Ratio 4.4 (0-5); Creatinine Clr Calc Pharmacy 21.4 ml/min; Est GFR (African American) 11.5 ml/min; Est GFR (Non-African American) 9.9 ml/min; Potassium 4.8 mmol/L (3.5-5.1)
[2022-10-13 08:33] LABS: Estimated Average Glucose 117 mg/dl; Hemoglobin A1C 5.7 % (4.5-5.6)
[2022-10-13] MEDS ORDERED: NICOTINE 14 MG/24 HR PATCH TD SCH (09:00)
[2022-10-13] MEDS: FUROSEMIDE 20 MG TAB PO SCH (09:27)
[2022-10-13] MEDS: amLODIPine BESYLATE 5 MG TAB PO SCH (09:27)
[2022-10-13] MEDS: METOPROLOL TARTRATE 100 MG TAB PO SCH ×2 (09:27→20:58)
--- NOTE | 2022-10-13 09:52 | Hospitalist Progress Note ---
Date of Service October 13, 2022 Assessment & Plan (1) Acute respiratory failure with hypoxia: Plan: 52-year-old male with past medical history of hypothyroidism, CKD 4-5, hypertension, HLD, autism spectrum disorder, papillary adenocarcinoma of the thyroid, blindness, pseudotumor cerebri, neuropathy who presents with acute shortness of breath this morning in setting of systolic of 200+ and hypervolemia secondary to worsening renal failure and flash pulmonary edema -Still requiring supplemental O2 -cxr: cardiomegaly w/ pulmonary edema. small pleural effusions w/ mild bibasilar consolidation -resp biofire neg -Lower suspicion for COPD exac; dc methylpred given in the ER -wbc 13s and now up to 20 secondary to steroids given in the ER. bibasilar consolidation: more likely from edema, negative procal -Continue Nitropaste, amlodipine, metoprolol monitor BP -EKG without significant acute ischemic concerns -Trend hstrop-stable from previous-myocardial demand ischemia secondary to hypoxia Echocardiogram with preserved EF -Nuclear stress test 04/04/19 was negative for ischemia Was given 1 dose of IV Lasix in the ER, has had good urine output and clinically feels better, nephrology says okay to continue home dose of Lasix 20 mg p.o. daily Continue supplemental O2 to keep pulse ox greater than 92% (2) Acute kidney injury superimposed on CKD: Plan: With TIFFANY on CKD stage 4-5, +COLLINS and +cANCA, with pulm edema, volume overload, and metabolic acidosis, accelerated HTN Was to have renal biopsy on the day of admission but this was cancelled Headed towards dialysis most likely, but not for today Follow renal function Appreciate nephrology consultation Start sodium bicarbonate tablets Continue Lasix 20 mg p.o. once daily (3) Hypertension: Plan: Blood pressures better controlled after accelerated hypertension upon admission - Continue home metoprolol tartrate 100mg PO BID, amlodipine 10mg PO daily, and furosemide 20mg PO daily (4) Hypothyroidism: Plan: -Continue home levothyroxine 250 mcg. TSH elevated at 18 Patient reports he takes his levothyroxine with all of his other oral medications-advised to take it alone in the future Continue current dose for now and check TSH in 4 to 6 weeks (5) Postnasal drip: Plan: -Flonase (6) Legally blind: Plan: -Chronic, secondary to increased pressure, pseudotumor cerebri? Follows with ophthalmology (7) Pseudotumor cerebri: Plan: - Status post sigmoid sinus venous stent 03/2021 Follows with neurology (8) Tobacco use disorder: Plan: -Nicotine patch dose to be increased and add as needed gum as he is still having cravings (9) Idiopathic polyneuropathy: Plan: -Per outpatient neurology, did not tolerate Cymbalta Plan Diet: Heart healthy, low-sodium DVT prophylaxis: SQ heparin Code: Full Dispo: Continued stay med surg Admission and Anticipated Discharge Date Admission Date: October 12, 2022 Subjective Patient feeling better, still some cough, requiring oxygen. Legs are not swollen more than usual. No chest pain Physical Exam Constitutional: WD/WN, vitals as above Neck: trachea midline, no thyromegaly Chest (Breasts): Chest: normal inspection of chest Gastrointestinal (Abdomen): normal bowel sounds, soft, nontender, no hepatosplenomegaly Musculoskeletal: Extremities: extremities normal to inspection; no cyanosis and no clubbing Skin: no rashes, warm and dry Neurologic: moves all extremities and awake; no focal motor deficits Psychiatric: A+Ox3, euthymic affect Lymphatic: no lymphedema Results & Data Results & Data Vital Signs (Past 12 Hours) Vital Signs Temp Pulse Resp BP Pulse Ox O2 Del Method O2 Flow Rate 10/13/22 07:39 36.4 C L 88 18 140/80 97 Nasal Cannula 3 10/13/22 02:18 126/66 Laboratory Results CBC, BMP, troponin reviewed PG Care Time/CCT Total # of Minutes Spent Total Time Spent with Patient: Total time spent is greater than 50% in coordination of care (as documented) at patient's floor/unit and/or counseling patient: Coding Level of Care Code 85713 SUB INP/OBS CARE 3/50MIN Diagnoses Acute respiratory failure with hypoxia J96.01 Acute kidney injury superimposed on CKD N17.9; N18.9 Hypertension I10 Hypertension type: unspecified Hypothyroidism E03.9 Postnasal drip R09.82 Legally blind H54.8 Pseudotumor cerebri G93.2 Tobacco use disorder F17.200 Idiopathic polyneuropathy G60.9 (3) Hypertension Hypertension type: unspecified Qualified Code(s): I10 - Essential (primary) hypertension
--- NOTE | 2022-10-13 12:28 | Nephrology Consultation ---
Date of Consultation October 13, 2022 Assessment & Plan (1) Acute kidney injury superimposed on CKD: (2) Metabolic acidosis with increased anion gap and accumulation of organic acids: (3) Leukocytosis: (4) Hypertension: (5) Proteinuria: (6) COLLINS positive: Plan 52-year-old male with stage IV CKD with rather progressive worsening of renal function over last few months, lately creatinine was above 4 with history of high-grade proteinuria for years, recent renal ultrasound otherwise unremarkable, serological workup with positive COLLINS and weakly positive ANCA admitted to the hospital with progressive shortness of breath and volume overload and noted to have further worsening of renal function. Creatinine on admission was 5.2 which has been rapidly worsening and 6.1 this morning associated with metabolic acidosis. Potassium has been normal. Respiratory status improved with just 20 mg of IV Lasix on admission and methylprednisone. Clinically continues to look slightly volume overloaded although not significant. Unclear etiology for progressive worsening of renal function, concern for renal vasculitis such as ANCA mediated vasculitis or other etiology however with underlying advanced CKD and high-grade proteinuria for years, he probably has advanced interstitial fibrosis and tubular atrophy. Renal biopsy was scheduled for yesterday but canceled because of symptom requiring hospitalization. -- Even though COLLINS and ANCA was mildly positive recently, would hold off on treating with high-dose steroid without biopsy as there may be significant chronicity. will get urinalysis today if there is significant hematuria suggesting active inflammation, steroid can be considered. Currently respiratory status improved, patient reports voiding normally, potassium normal and no significant uremic symptom although rapid rise of creatinine is of concern. No acute indication for dialysis at this time however if renal function continue to worsen rapidly may need to get a temporary catheter and start on dialysis over the weekend. -- okay to continue on current dose of Lasix, correct measurement of intake and output -- dose medications for eGFR less than 10, left arm nephrology precaution for future vascular access. -- Check phosphorous in a.m., start on calcitriol 0.25 mcg daily and start on calcium carbonate 1 tab p.o. t.i.d. for hypocalcemia. -- iron study Thank you for allowing me to participate in your patient's care. It was a pleasure to see Chris. History of Present Illness Reason for Consultation: TIFFANY, stage 4 CKD Attending Physician: Lolly Foster MD History of Present Illness Mr. Chris Pandya is a 52-year-old male with PMH of stage 4 CKD, obesity, hypertension, PTC s/p thyroidectomy, tobacco abuse, pseudotumor cerebri with associated vision loss admitted to the hospital with shortness of breath, TIFFANY and metabolic acidosis with advanced CKD. Nephrology consult was requested for management of above. EMR records were reviewed in detail during patient's visit. Chris was brought to ER yesterday by his sister because of shortness of breath, postnasal drip, coughing. Denied fevers, chills, chest pain, N/V, abdominal pain, diarrhea, bloody stool, or urinary symptoms. in ER initially blood pressure was significantly improved but significantly elevated but rapidly improved after receiving Lasix 20 mg IV and Nitro paste and blood pressure has been staying stable. He also received a dose of methylprednisone in ER. Initial lab showed mild leukocytosis with worsened significantly. lab in ER was also notable for TIFFANY, creatinine was 5.1, potassium was normal. prior renal imaging showed bilateral atrophic and echogenic kidneys, right kidney 11.2 and left kidney 11.2 cm. No Urinalysis done this admission but known high-grade proteinuria. He reports he has been voiding at home and since admission he felt like he is voiding less than his usual. He reports significant improvement in his shortness of breath but he feels he continues to have postnasal drip. appetite has been decent. Chris has history of stage IIIB/4 CKD and high-grade proteinuria at least since 2016. He has been seeing Dr. San as an outpatient however there has been periods of missing follow-up appointments. over last few months renal function noted to be worsening rapidly and recently creatinine was staying above for serological workup was done 2 weeks ago showing positive COLLINS and weakly positive ANCA, normal complements. he has not been on DENIA-inhibitor or ARB due to prior history of TIFFANY. He was scheduled to have a renal biopsy which was due for 10/12/22 but it was canceled as he presented to ER. Past medical history also significant for hypertension, HLD, papillary adenocarcinoma of the thyroid, pseudotumor cerebri Leading to blindness and he is unable to drive ( had [place] [facility] neuropathy. Previous abdominal imaging also was suggestive for MEDINA. He has autism spectrum disorder, had multiple hospitalization related to complications from not taking his prescribed medications for hypothyroidism and hypertension. He smoke a pipe. He was overall feeling well this morning, denied shortness of breath but reports feeling postnasal drip. He reports voiding however urine output unmeasured. Appetite decent. Repeat labs this morning showed significant worsening of renal function compared to yesterday, creatinine 6.0, bicarb 17, potassium remained normal. Hemoglobin dropped to 12.3 and leukocytosis worsened. No fever or chills. Allergies Allergy/AdvReac Type Severity Reaction Status Date / Time No Known Allergies Allergy Verified 09/22/22 09:57 Home Medications Medication Instructions Recorded Confirmed Type amlodipine 10 mg tablet 10 mg PO DAILY #90 tabs 11/22/21 10/12/22 Rx levothyroxine 200 mcg tablet 200 mcg PO DAILY #90 tabs 11/22/21 10/12/22 Rx (Synthroid) metoprolol tartrate 100 mg tablet 100 mg PO BID #180 tabs 11/22/21 10/12/22 Rx potassium chloride 20 mEq 20 meq PO DAILY #90 tabs 11/22/21 10/12/22 Rx tablet,extended release(part/cryst) levothyroxine 50 mcg tablet 50 mcg PO DAILY #90 tabs 12/06/21 10/12/22 Rx furosemide 20 mg tablet 20 mg PO DAILY #90 tabs 03/01/22 10/12/22 Rx aspirin 81 mg tablet,delayed 81 mg PO DAILY #90 tabs 03/20/22 10/12/22 Rx release (Ecotrin Low Strength) cholecalciferol (vitamin D3) 1,250 50,000 unit PO .COMPLEX 12 weeks 03/20/22 10/12/22 Rx mcg (50,000 unit) capsule #12 caps Patient History Medical History (Updated 10/13/22 @ 13:59 by Haylee Yang MD) COLLINS positive Autism spectrum disorder Chronic kidney disease Chronic low back pain Edema of both legs History of papillary adenocarcinoma of thyroid Hyperlipidemia Hypertension Hypothyroidism s/p thyroidectomy Legally blind due to visual field deficits Metabolic acidosis with increased anion gap and accumulation of organic acids Proteinuria Pseudotumor cerebri s/p transverse sinus stent 03/2021 Pulmonary nodules Vitamin D deficiency Surgical History History of thyroidectomy Family History Mother Hypertension Other Coronary heart disease Denies family history of Ovarian cancer Prostate cancer Myocardial infarction Breast cancer Colorectal cancer Social History Smoking Status: Current some day smoker Tobacco Type: Smokeless Tobacco (Dip or Chew) Second Hand Exposure: No; Do You Dip or Chew Tobacco: Yes; Hx Alcohol Use: Yes Alcohol type: beer Hx Substance Use: No Preferred Language: [place] Leonean Communication Ability: Effective Visual Impairment: No Limitations Hearing Ability: Normal Management Technician Required: No Beliefs That Will Affect Care: None marital status: Current Living Situation: Parent and Family Current Living Situation Comment: lives with parents current occupational status: disabled current occupation: unemployed Feels Safe at Home: Yes Dental Care, Regularly: No Physical Activity Frequency: Does not Exercise Assistive Devices: None Review of Systems Review of Systems: Detailed review of system was done and pertinent positives and negatives are mentioned above. Physical Exam Constitutional: WD/WN, vitals as above no acute distress Eyes: + anicteric sclerae Neck: normal visual inspection Respiratory: no respiratory distress and no cough Auscultation: lungs clear to auscultation bilaterally Cardiovascular: Rate/Rhythm: regular rate and regular rhythm Heart Sounds: normal S1 and normal S2 Extremities: no edema Gastrointestinal (Abdomen): Inspection/Auscultation: abdomen normal to inspection Percussion/Palpation: abdomen soft; abdomen nontender Musculoskeletal: Extremities: extremities normal to inspection Skin: no rashes, warm and dry Neurologic: no focal motor deficits and not confused Psychiatric: Orientation: alert and oriented x 3 Affect: euthymic affect Results & Data Vital Signs (Past 12 Hours) Vital Signs Temp Pulse Resp BP Pulse Ox O2 Del Method O2 Flow Rate 10/13/22 09:30 Nasal Cannula 3 10/13/22 07:39 36.4 C L 88 18 140/80 97 Nasal Cannula 3 10/13/22 02:18 126/66 PG Care Time/CCT Total # of Minutes Spent Total Time Spent with Patient: Total time spent is greater than 50% in coordination of care (as documented) at patient's floor/unit and/or counseling patient: Coding Level of Care Code 71746 INT INP/OBS CARE 3/75MIN Diagnoses Acute kidney injury superimposed on CKD N17.9; N18.9 Metabolic acidosis with increased anion gap and accumulation of organic acids E87.20 Leukocytosis D72.829 Hypertension I10 Hypertension type: unspecified Proteinuria R80.9 COLLINS positive R76.8 (4) Hypertension Hypertension type: unspecified Qualified Code(s): I10 - Essential (primary) hypertension
[2022-10-13] MEDS: SODIUM BICARBONATE 650 MG TAB PO SCH ×2 (14:51→20:58)
[2022-10-13] MEDS: CALCIUM CARBONATE 500 MG CHEWABLE TAB PO SCH ×3 (14:51→20:57)
[2022-10-13] MEDS: CALCITRIOL 0.25 MCG CAPSULE PO SCH (14:51)
[2022-10-13] MEDS: FLUTICASONE PROPIONATE NA SPR 16 GM BTL NAE SCH (17:39)
[2022-10-13] MEDS ORDERED: NICOTINE POLACRILEX 2 MG GUM MT PRN (17:47)
[2022-10-13] MEDS ORDERED: NITROGLYCERIN 2% OINTMENT 30GM TUBE EXT ONE (20:47)
[2022-10-13] MEDS: NICOTINE 21 MG/24 HR TDSY TD SCH (20:56)
[2022-10-14] MEDS: NITROGLYCERIN 2% OINTMENT 30GM TUBE EXT SCH ×2 (02:42→09:00)
[2022-10-14] MEDS: HEPARIN SOD 5,000 UNIT/0.5 ML VIAL SQ SCH ×3 (05:50→22:02)
[2022-10-14] MEDS: LEVOTHYROXINE SODIUM 200 MCG TABLET PO SCH (05:51)
[2022-10-14] MEDS: LEVOTHYROXINE SODIUM 50 MCG TABLET PO SCH (05:51)
[2022-10-14 06:13] LABS: Appearance Urine Clear (Clear); Bacteria Urine Automated Negative (Negative); Bilirubin Urine Negative (Negative); Blood Urine 3+ (Negative); Color Urine Yellow; Epithelial Cell Urine Auto >30 /lpf (0-5); Glucose Urine UA Negative (Negative); Ketones Urine Negative (Negative); Leukocyte Esterase Urine Negative (Negative); Nitrite Urine Negative (Negative); Protein Urine 3+ (Negative); RBC Urine Automated 0-4 /hpf (0-4); Specific Gravity Urine 1.016 (1.000-1.030); Urobilinogen Urine Negative (Negative)
[2022-10-14 06:53] LABS: Hematocrit (blood only) 35.1 % (42.0-52.0); Hemoglobin 11.8 g/dl (14.0-18.0); Mean Corpuscular Hemoglobin 29.6 pg (25.0-34.0); Mean Corpuscular Hgb Conc 33.6 g/dL (32.0-36.0); Mean Platelet Volume 10.6 fL (9.4-12.4); Platelet Count 258 K/uL (130-400); RDW Coefficient of Variation 14.3 % (11.5-14.5); RDW Standard Deviation 46.6 fL (36.4-46.3); Red Blood Count 3.99 M/uL (4.70-6.10); White Blood Count 13.65 K/ul (4.8-10.8)
[2022-10-14 07:30] LABS: Albumin Level 3.6 gm/dl (3.4-5.0); BUN Creatinine Ratio 13.4 (10-20); Calcium 7.1 mg/dl (8.6-10.3); Est GFR (African American) 11.2 ml/min; Est GFR (Non-African American) 9.7 ml/min; Phosphorus 6.1 mg/dl (2.5-4.9); Potassium 4.1 mmol/L (3.5-5.1)
[2022-10-14] MEDS: METOPROLOL TARTRATE 100 MG TAB PO SCH ×2 (09:05→20:35)
[2022-10-14] MEDS: amLODIPine BESYLATE 5 MG TAB PO SCH (09:06)
[2022-10-14] MEDS: SODIUM BICARBONATE 650 MG TAB PO SCH ×2 (09:06→20:35)
[2022-10-14] MEDS: CALCIUM CARBONATE 500 MG CHEWABLE TAB PO SCH ×3 (09:07→20:34)
[2022-10-14] MEDS: CALCITRIOL 0.25 MCG CAPSULE PO SCH (09:07)
[2022-10-14] MEDS: NICOTINE 21 MG/24 HR TDSY TD SCH (09:08)
[2022-10-14] MEDS: FUROSEMIDE 20 MG TAB PO SCH (09:51)
[2022-10-14] MEDS: guaiFENesin/DEXTROM SYRUP 200MG/20MG 10ML UDC PO PRN ×2 (12:17→18:14)
--- NOTE | 2022-10-14 12:37 | Nephrology Progress Note ---
Date of Service October 14, 2022 Assessment & Plan (1) Acute kidney injury superimposed on CKD: Plan: Baseline CKD IV A3 with recent concerning progression. Thankfully, there is no emergent indication to start dialysis. Electrolytes are normal. Chris is non- oliguric. I have discussed potential indications with Chris in detail. Hemodialysis as a potential consideration was also discussed with his sister by phone today. They expressed understanding. There are multiple findings supportive of advanced chronic kidney disease and it is unclear if there is any acute component. Urine notable for proteinuria and +3 blood. However, urine microscopy remains acellular. Ideally, I would like to proceed with kidney biopsy for definitive diagnosis but this is not an option at [facility] without vascular back-up. Vascular surgery will not be available for the next couple of weeks. This also means that options for a hemodialysis permcath are limited at [facility]. Current goals of care are to stabilize kidney function and improve volume status. If we can do this, I would then attempt to coordinate additional needs as an outpatient. Serologic evaluation with positive COLLINS and weakly positive ANCA. However, without active urine sediment and given other medical comorbidities, I would favor holding treatment pending biopsy confirmed evidence of vasculitis. Despite proteinuria, Chris is not hypoalbuminemic. Medications are appropriately dosed for kidney function. Continue calcitriol 0.25 mcg daily. Calcium carbonate 1 tab TID for hypocalcemia. Additional 40 mg IV furosemide provided now. (2) Metabolic acidosis with increased anion gap and accumulation of organic acids: Plan: Attributed to kidney dysfunction. Continue NaHCO3 650 mg BID. (3) Hypertension: Plan: BP improved. Remains on amlodipine and metoprolol per home Rx. Will remove nitropaste now. Additional furosemide 40 mg IV provided now. Renal artery duplex requested. (4) Proteinuria: Plan: Avoid DENIA/ARB in setting of TIFFANY. Admission and Anticipated Discharge Date Admission Date: October 12, 2022 Subjective No acute events overnight. Chris reports notable improvement in dyspnea. He denies any chest pain or palpitations. His primary complaint is a persistent dry cough. He states that several family members at home have had a similar cough. He denies fevers or chills. He denies orthopnea. Dyspnea started fairly suddenly yesterday when leaving for his kidney biopsy. Chris admits to anxiety about the procedure. I spoke with Chris's sister (Claudia) by phone and reviewed the history and plan of care. Chris and Claudia do not endorse progressive uremic symptoms. However, Claudia did express concerns related to fluid retention. Chris feels that edema in his legs has been stable. He has not appreciated increasing fluid retention. Appetite remains good. He tries to limit sodium intake. Activity tolerance otherwise has been stable. Chris told me that he is having difficulty with stairs due to neuropathy and issues pertaining to balance. He denies notable LLANOS. BP has been acceptable since admission. Review of Systems Review of Systems: All systems reviewed & are unremarkable except as noted in HPI & below Physical Exam Constitutional: well developed and + morbidly obese; no acute distress Eyes: no scleral abnormality and no corneal abnormality ENMT: Mouth: no oral mucosal abnormality and oral mucous membranes not dry Neck: normal visual inspection and trachea midline Respiratory: normal respiratory effort Auscultation: lungs clear to auscultation bilaterally and + rales Cardiovascular: Rate/Rhythm: regular rate Heart Sounds: normal S1 and normal S2 Extremities: + edema Musculoskeletal: Extremities: no cyanosis and no clubbing Skin: normal turgor; no lesions Neurologic: Motor/Sensory: no tremor and no asterixis Psychiatric: Orientation: alert and oriented x 3 Results & Data Vital Signs (Past 12 Hours) Vital Signs Temp Pulse Resp BP Pulse Ox O2 Del Method O2 Flow Rate 10/14/22 09:19 Nasal Cannula 10/14/22 07:55 36.5 C 81 18 93 Nasal Cannula 3 10/14/22 02:40 115/71 Laboratory Results Laboratory Results - last 24 hr 10/13/22 10/14/22 10/14/22 18:37 05:52 06:27 WBC 13.65 H RBC 3.99 L Hgb 11.8 L Hct 35.1 L MCV 88.0 MCH 29.6 MCHC 33.6 RDW Std Deviation 46.6 H RDW Coeff of Tiffanie 14.3 Plt Count 258 MPV 10.6 Sodium Potassium Chloride Carbon Dioxide Anion Gap BUN Creatinine Est Cr Clr Drug Dosing Est GFR ( Amer) Est GFR (Non-Af Amer) BUN/Creatinine Ratio Glucose Calcium Phosphorus Total Creatine Kinase Albumin Urine Color Yellow Urine Appearance Clear Urine pH 5.0 Ur Specific [place] 1.016 Urine Protein 3+ H Urine Glucose (UA) Negative Urine Ketones Negative Urine Blood 3+ H Urine Nitrite Negative Urine Bilirubin Negative Urine Urobilinogen Negative Ur Leukocyte Esterase Negative Urine WBC (Auto) 1-5 Urine RBC (Auto) 0-4 U Hyaline Cast (Auto) 1-5 U Epithel Cells (Auto) >30 H Urine Bacteria (Auto) Negative Urine Yeast Not Reportable Glomerular Base Memb Ab Pending 10/14/22 10/14/22 06:27 12:39 WBC RBC Hgb Hct MCV MCH MCHC RDW Std Deviation RDW Coeff of Tiffanie Plt Count MPV Sodium 142 Potassium 4.1 Chloride 110 H Carbon Dioxide 18 L Anion Gap 14 H BUN 82 H Creatinine 6.14 H* Est Cr Clr Drug Dosing 21.0 Est GFR ( Amer) 11.2 Est GFR (Non-Af Amer) 9.7 BUN/Creatinine Ratio 13.4 Glucose 90 Calcium 7.1 L Phosphorus 6.1 H Total Creatine Kinase Pending Albumin 3.6 Urine Color Urine Appearance Urine pH Ur Specific [place] Urine Protein Urine Glucose (UA) Urine Ketones Urine Blood Urine Nitrite Urine Bilirubin Urine Urobilinogen Ur Leukocyte Esterase Urine WBC (Auto) Urine RBC (Auto) U Hyaline Cast (Auto) U Epithel Cells (Auto) Urine Bacteria (Auto) Urine Yeast Glomerular Base Memb Ab PG Care Time/CCT Total # of Minutes Spent Total Time Spent with Patient: Total time spent is greater than 50% in coordination of care (as documented) at patient's floor/unit and/or counseling patient: Coding Level of Care Code 41948 SUB INP/OBS CARE 3/50MIN Diagnoses Acute kidney injury superimposed on CKD N17.9; N18.9 Metabolic acidosis with increased anion gap and accumulation of organic acids E87.20 Hypertension I10 Hypertension type: unspecified Proteinuria R80.9 (3) Hypertension Hypertension type: unspecified Qualified Code(s): I10 - Essential (primary) hypertension
[2022-10-14] MEDS ORDERED: FUROSEMIDE 40 MG/4 ML VIAL IV ONE (12:45)
--- NOTE | 2022-10-14 15:05 | Ultrasound Report ---
US duplex renal artery CLINICAL HISTORY: benjy, hypertension TECHNIQUE: Real-time grayscale and color and spectral Doppler ultrasound imaging of the kidneys was p erformed. Comparison: None available at the time of this dictation. FINDINGS: Right kidney measures 9.8 cm. Left kidney measures 8.7 cm. RIGHT: The right kidney is diminutive in size with cortical thinning noted. No hydronephrosis is identified. No renal lesion is identified. LEFT: The left kidney is diminutive in size with cortical thinning noted. No hydronephrosis is identified. No renal lesion is identified. Spectral analysis: No increased velocities where measured. Abdominal aorta: Patent. Peak systolic velocity 51 cm/s. Bladder: Normal. Bilateral ureteral jets present. Reference ranges: Normal main renal artery peak systolic velocity less than 180 cm/s. Ratio of renal artery PSV to aort ic PSV less than 3.5 equates to normal or less than 60% stenosis. Only one of the two criteria listed needs to be met for diagnosis. Arcuate resistive indices about 0.8 are elevated. IMPRESSION: Limited exam without evidence of elevated velocities. Bilateral renal atrophy noted. ACT 112: Negative or not required by law. Electronically signed by: Sebastián Mosquera M.D. 10/14/2022 3:04 PM
--- NOTE | 2022-10-14 17:39 | Hospitalist Progress Note ---
Date of Service October 14, 2022 Assessment & Plan (1) Acute respiratory failure with hypoxia: Plan: 52-year-old male with past medical history of hypothyroidism, CKD 4-5, hypertension, HLD, autism spectrum disorder, papillary adenocarcinoma of the thyroid, blindness, pseudotumor cerebri, neuropathy who presents with acute shortness of breath this morning in setting of systolic of 200+ and hypervolemia secondary to worsening renal failure and flash pulmonary edema -Still requiring supplemental O2 but dyspnea has improved -cxr: cardiomegaly w/ pulmonary edema. small pleural effusions w/ mild bibasilar consolidation. Still with crackles on examination -resp biofire neg -Lower suspicion for COPD exac; dc methylpred given in the ER -wbc 13s and then up to 21 secondary to steroids given in the ER. bibasilar consolidation: more likely from edema, negative procal -Continue diuresis as able to given renal failure-giving Lasix 40 Mg IV x1 on 10/14 -Discontinue Nitropaste, but continue amlodipine, metoprolol monitor BP -EKG without significant acute ischemic concerns -Troponin mildly elevated at 50 and then down to 45-stable from previous- myocardial demand ischemia secondary to hypoxia Echocardiogram with preserved EF -Nuclear stress test 04/04/19 was negative for ischemia Continue supplemental O2 to keep pulse ox greater than 92% (2) Acute kidney injury superimposed on CKD: Plan: With TIFFANY on CKD stage 4-5, +COLLINS and +cANCA, with pulm edema, volume overload, and metabolic acidosis, accelerated HTN Was to have renal biopsy on the day of admission but this was cancelled Headed towards dialysis most likely, but not for today. No evidence of uremia or hyperkalemia. Is volume overloaded but is clinically stable. With metabolic acidosis Follow renal function, creatinine further up today to 6.1, BUN up to 82, metabolic acidosis slightly improved since starting sodium bicarbonate tablets Appreciate nephrology consultation Continue Lasix 20 mg p.o. once daily give extra Lasix 40 Mg IV x1 today If needed urgent hemodialysis, would need transfer out for tunneled dialysis catheter as vascular surgery not available here at this time. If transferred out, would request renal biopsy be performed as well for diagnosis/etiology of advanced renal failure Follow urine output, daily weights, strict I's and O's Low-sodium diet With hyperphosphatemia-May need phosphate binder Urinalysis with 3+ blood on dipstick but 0 RBCs- checked CK which is elevated at 1600 consistent with myositis (3) Elevated CK: Plan: consider underlying polymyositis, MCTD, SLE? has had 3-4+ blood on UA but 0-4 RBCs since at least 2018 but CK not previously checked check CK, aldolase, LDH, ESR, CRP, anti-dsDNA in AM consider Rheum consult inpt vs outpt referral (4) Hypertension: Plan: Blood pressures better controlled after accelerated hypertension upon admission - Continue home metoprolol tartrate 100mg PO BID, amlodipine 10mg PO daily, and furosemide 20mg PO daily -Discontinue Nitropaste -Giving IV Lasix (5) Hypothyroidism: Plan: -Continue home levothyroxine 250 mcg. TSH elevated at 18 Patient reports he takes his levothyroxine with all of his other oral medications-advised to take it alone in the future Continue current dose for now and check TSH in 4 to 6 weeks has a h/o thyroid CA consider outpt Endo referral (6) Postnasal drip: Plan: -Flonase (7) Legally blind: Plan: -Chronic, secondary to increased pressure, pseudotumor cerebri? Follows with ophthalmology (8) Pseudotumor cerebri: Plan: - Status post sigmoid sinus venous stent 03/2021 Follows with neurology (9) Tobacco use disorder: Plan: -Nicotine patch and as needed nicotine gum as he is still having cravings (10) Idiopathic polyneuropathy: Plan: -Per outpatient neurology, did not tolerate Cymbalta could be related to profound hypothyroidism over the years? check B12 in AM (11) Anemia: Plan: Hemoglobin dropping to 11.8 despite diuretics Normocytic Check B12, folate, iron studies in the morning Could also be related to hypothyroidism Plan Diet: Heart healthy, low-sodium DVT prophylaxis: SQ heparin Code: Full Dispo: Continued stay med surg Discussed care with his mother and father at bedside on 10/14 Admission and Anticipated Discharge Date Admission Date: October 12, 2022 Subjective Patient reports he is tired of having to urinate so often after receiving IV Lasix today. Reports his shortness of breath is improved except when he gets up to walk to the bathroom and back. He still complains of a nagging cough and requested cough syrup. When asked about myalgias, he denies them, but his mother at the bedside reports that he frequently complains of pain in his legs with walking. He denies arthralgias, no skin rashes other than the vitiligo rash she has had since childhood. I discussed his care with nephrology on multiple occasions today. Physical Exam Constitutional: WD/WN, vitals as above Neck: trachea midline, no thyromegaly Respiratory: normal respiratory effort and + cough Auscultation: + crackles (Bibasilar); no rhonchi and no wheezes Cardiovascular: Rate/Rhythm: regular rate and regular rhythm Extremities: + edema (1+ pitting edema to the knees bilaterally) Chest (Breasts): Chest: normal inspection of chest Gastrointestinal (Abdomen): normal bowel sounds, soft, nontender, no hepatosplenomegaly Musculoskeletal: Extremities: extremities normal to inspection; no cyanosis and no clubbing Skin: + rash (Hypopigmented rash over multiple areas of body) Neurologic: moves all extremities and awake; no focal motor deficits Psychiatric: A+Ox3, euthymic affect Results & Data Results & Data Vital Signs (Past 12 Hours) Vital Signs Temp Pulse Resp BP Pulse Ox O2 Del Method O2 Flow Rate 10/14/22 15:53 94 Nasal Cannula 2 10/14/22 15:50 36.6 C 81 20 131/77 88 L Room Air 10/14/22 09:19 Nasal Cannula 10/14/22 07:55 36.5 C 81 18 93 Nasal Cannula 3 Laboratory Results CBC, BMP, urinalysis, phosphorus, calcium, and CPK all reviewed Diagnostic Findings Renal duplex ultrasound with medical renal disease but no evidence of renal artery stenosis PG Care Time/CCT Total # of Minutes Spent Total Time Spent with Patient: Total time spent is greater than 50% in coordination of care (as documented) at patient's floor/unit and/or counseling patient: Coding Level of Care Code 81895 SUB INP/OBS CARE 3/50MIN Diagnoses Acute respiratory failure with hypoxia J96.01 Acute kidney injury superimposed on CKD N17.9; N18.9 Elevated CK R74.8 Hypertension I10 Hypertension type: unspecified Hypothyroidism E03.9 Postnasal drip R09.82 Legally blind H54.8 Pseudotumor cerebri G93.2 Tobacco use disorder F17.200 Idiopathic polyneuropathy G60.9 Anemia D64.9 (4) Hypertension Hypertension type: unspecified Qualified Code(s): I10 - Essential (primary) hypertension
[2022-10-14] MEDS: FLUTICASONE PROPIONATE NA SPR 16 GM BTL NAE SCH (18:15)
[2022-10-15] MEDS: HEPARIN SOD 5,000 UNIT/0.5 ML VIAL SQ SCH ×3 (06:19→20:02)
[2022-10-15] MEDS: LEVOTHYROXINE SODIUM 50 MCG TABLET PO SCH (06:19)
[2022-10-15] MEDS: LEVOTHYROXINE SODIUM 200 MCG TABLET PO SCH (06:19)
[2022-10-15] MEDS: guaiFENesin/DEXTROM SYRUP 200MG/20MG 10ML UDC PO PRN (06:19)
[2022-10-15 06:47] LABS: Basophils # (auto) 0.04 K/uL (0-0.2); Basophils % (auto) 0.3 %; Eosinophils # (auto) 0.24 K/uL (0-0.50); Hematocrit (blood only) 37.7 % (42.0-52.0); Hemoglobin 12.7 g/dl (14.0-18.0); Immature Granulocytes # (auto) 0.08 K/uL (0.01-0.20); Immature Granulocytes % (auto) 0.7 %; Lymphocytes # (auto) 0.73 K/uL (1.2-3.4); Lymphocytes % (auto) 6.2 %; Mean Corpuscular Hemoglobin 29.1 pg (25.0-34.0); Mean Corpuscular Hgb Conc 33.7 g/dL (32.0-36.0); Mean Corpuscular Volume 86.3 fL (80.0-100.0); Monocytes # (auto) 1.18 K/uL (0.11-0.59); Neutrophils # (auto) 9.58 K/uL (1.40-6.50); Neutrophils % (auto) 80.8 %; Platelet Count 260 K/uL (130-400); RDW Coefficient of Variation 14.1 % (11.5-14.5); Red Blood Count 4.37 M/uL (4.70-6.10); White Blood Count 11.85 K/ul (4.8-10.8)
[2022-10-15 06:58] LABS: Albumin Level 3.8 gm/dl (3.4-5.0); BUN Creatinine Ratio 13.3 (10-20); C Reactive Protein 4.82 mg/dl (0-0.5); Creatinine Clr Calc Pharmacy 21.6 ml/min; Est GFR (African American) 11.6 ml/min; Phosphorus 6.1 mg/dl (2.5-4.9); Potassium 3.6 mmol/L (3.5-5.1)
[2022-10-15 07:17] LABS: Ferritin 761.8 ng/ml (8-388)
[2022-10-15] MEDS: CALCITRIOL 0.25 MCG CAPSULE PO SCH (08:11)
[2022-10-15] MEDS: CALCIUM CARBONATE 500 MG CHEWABLE TAB PO SCH ×3 (08:12→20:02)
[2022-10-15] MEDS: METOPROLOL TARTRATE 100 MG TAB PO SCH ×2 (08:12→20:02)
[2022-10-15] MEDS: NICOTINE 21 MG/24 HR TDSY TD SCH (08:13)
[2022-10-15] MEDS: amLODIPine BESYLATE 5 MG TAB PO SCH (08:13)
[2022-10-15] MEDS: FUROSEMIDE 20 MG TAB PO SCH ×2 (09:57→17:10)
[2022-10-15] MEDS: SODIUM BICARBONATE 650 MG TAB PO SCH ×2 (09:57→20:02)
[2022-10-15] MEDS ORDERED: IRON SUCROSE 200 MG in 0.9 % SODIUM CHLORIDE 100 ML IV ONE (10:45)
--- NOTE | 2022-10-15 11:07 | Nephrology Progress Note ---
Date of Service October 15, 2022 Assessment & Plan (1) Acute kidney injury superimposed on CKD: Plan: Non-oliguric. Electrolytes acceptable. Volume status improving hypervolemia. No emergent indication for dialysis. Baseline CKD IV A3. Urine notable for proteinuria and +3 blood. However, urine microscopy remains acellular. Interestingly, CK was 1600-->1300. Serologic evaluation notable for C-ANCA (1:20) and COLLINS. ESR ~80. Very atypical presentation even for a chronic ANCA mediated GN. Kidney are atrophic on imaging. Ideally, I would like to proceed with kidney biopsy for definitive diagnosis and to quantify chronicity but we have not been able to coordinate expediently. In the interim, I will try starting prednisone today at 60 mg daily. Case will also be discussed with rheumatology for assistance moving forward. Medications are appropriately dosed for kidney function. Continue calcitriol 0.25 mcg daily. Calcium carbonate 1 tab TID for hypocalcemia. Furosemide increased to 20 mg BID, goal is to encourage continued slightly negative fluid balance. (2) Metabolic acidosis with increased anion gap and accumulation of organic acids: Plan: Attributed to kidney dysfunction. Continue NaHCO3 650 mg BID. (3) Hypertension: Plan: BP improved. Remains on amlodipine and metoprolol per home Rx. Continue furose mide to encourage negative fluid balance. Renal artery duplex non-diagnostic due to habitus but velocities not appreciably elevated. (4) Proteinuria: Plan: Avoid DENIA/ARB in setting of TIFFANY. (5) Elevated CK: Plan: Monitoring daily. Will discuss with rheumatology. (6) Hypoxia: Plan: Non-contrast CT requested this AM for better evaluation. (7) Anemia: Plan: H/H stable. Hgb >11. Hold CAYETANO therapy. Tsat slightly low, venofer 200 mg IV ordered for today. Admission and Anticipated Discharge Date Admission Date: October 12, 2022 Subjective No acute events overnight. Chris is frustrated this morning. He would like to go home. He reports difficulty sleeping. Nagging cough persists. No fevers or chills. Denies dyspnea or classic orthopnea. Cough is worse when lying down. Cough is non-productive. Chris also reports difficulty sleeping due to frequent need to void following IV furosemide. After discussing concerns with Chris, we also spoke with his sister Chuyita by phone. Chuyita was supportive of Chris remaining in the hospital for additional treatment and evaluation. Plan of care was reviewed and Chris expressed understanding. Review of Systems Review of Systems: All systems reviewed & are unremarkable except as noted in HPI & below Physical Exam Constitutional: well developed; no acute distress Eyes: no scleral abnormality and no corneal abnormality ENMT: Mouth: no oral mucosal abnormality and oral mucous membranes not dry Neck: normal visual inspection and trachea midline Respiratory: normal respiratory effort Auscultation: lungs clear to auscultation bilaterally and + rales (few at right base) Cardiovascular: Rate/Rhythm: regular rate Heart Sounds: normal S1 and normal S2 Extremities: + edema Musculoskeletal: Extremities: no cyanosis and no clubbing Skin: normal turgor; no jaundice Neurologic: Motor/Sensory: no tremor and no asterixis Psychiatric: Orientation: alert and oriented x 3 Results & Data Vital Signs (Past 12 Hours) Vital Signs Temp Pulse Resp BP Pulse Ox O2 Del Method O2 Flow Rate 10/15/22 08:45 Nasal Cannula 2 10/15/22 07:30 36.6 C 82 18 145/80 H 94 Nasal Cannula 2 Laboratory Results Laboratory Results - last 24 hr 10/14/22 10/15/22 10/15/22 12:39 06:14 06:14 WBC RBC Hgb Hct MCV MCH MCHC RDW Std Deviation RDW Coeff of Tiffanie Plt Count MPV Immature Gran % (Auto) Neut % (Auto) Lymph % (Auto) [place] % (Auto) Eos % (Auto) Baso % (Auto) Neut # (Auto) Lymph # (Auto) [place] # (Auto) Eos # (Auto) Baso # (Auto) Immature Gran # (Auto) ESR 81 H Sodium 139 Potassium 3.6 Chloride 107 Carbon Dioxide 18 L Anion Gap 14 H BUN 79 H Creatinine 5.95 H* Est Cr Clr Drug Dosing 21.6 Est GFR ( Amer) 11.6 Est GFR (Non-Af Amer) 10.0 BUN/Creatinine Ratio 13.3 Glucose 87 Calcium 7.0 L Phosphorus 6.1 H Iron 40 TIBC 280 Unsaturated IBC 240 Transferrin % Sat 14 L Ferritin 761.8 H Lactate Dehydrogenase Total Creatine Kinase 1626 H 1315 H C-Reactive Protein 4.82 H Albumin 3.8 Aldolase Vitamin B12 Folate Double Strand DNA Ab 10/15/22 10/15/22 10/15/22 06:14 06:14 06:14 WBC RBC Hgb Hct MCV MCH MCHC RDW Std Deviation RDW Coeff of Tiffanie Plt Count MPV Immature Gran % (Auto) Neut % (Auto) Lymph % (Auto) [place] % (Auto) Eos % (Auto) Baso % (Auto) Neut # (Auto) Lymph # (Auto) [place] # (Auto) Eos # (Auto) Baso # (Auto) Immature Gran # (Auto) ESR Sodium Potassium Chloride Carbon Dioxide Anion Gap BUN Creatinine Est Cr Clr Drug Dosing Est GFR ( Amer) Est GFR (Non-Af Amer) BUN/Creatinine Ratio Glucose Calcium Phosphorus Iron TIBC Unsaturated IBC Transferrin % Sat Ferritin Lactate Dehydrogenase 487 H Total Creatine Kinase C-Reactive Protein Albumin Aldolase Pending Vitamin B12 372 Folate 8.88 Double Strand DNA Ab Pending 10/15/22 06:14 WBC 11.85 H RBC 4.37 L Hgb 12.7 L Hct 37.7 L MCV 86.3 MCH 29.1 MCHC 33.7 RDW Std Deviation 44.0 RDW Coeff of Tiffanie 14.1 Plt Count 260 MPV 11.0 Immature Gran % (Auto) 0.7 Neut % (Auto) 80.8 Lymph % (Auto) 6.2 [place] % (Auto) 10.0 Eos % (Auto) 2.0 Baso % (Auto) 0.3 Neut # (Auto) 9.58 H Lymph # (Auto) 0.73 L [place] # (Auto) 1.18 H Eos # (Auto) 0.24 Baso # (Auto) 0.04 Immature Gran # (Auto) 0.08 ESR Sodium Potassium Chloride Carbon Dioxide Anion Gap BUN Creatinine Est Cr Clr Drug Dosing Est GFR ( Amer) Est GFR (Non-Af Amer) BUN/Creatinine Ratio Glucose Calcium Phosphorus Iron TIBC Unsaturated IBC Transferrin % Sat Ferritin Lactate Dehydrogenase Total Creatine Kinase C-Reactive Protein Albumin Aldolase Vitamin B12 Folate Double Strand DNA Ab PG Care Time/CCT Total # of Minutes Spent Total Time Spent with Patient: Total time spent is greater than 50% in coordination of care (as documented) at patient's floor/unit and/or counseling patient: Coding Level of Care Code 32875 SUB INP/OBS CARE 3/50MIN Diagnoses Acute kidney injury superimposed on CKD N17.9; N18.9 Metabolic acidosis with increased anion gap and accumulation of organic acids E87.20 Hypertension I10 Hypertension type: unspecified Proteinuria R80.9 Elevated CK R74.8 Hypoxia R09.02 Anemia D64.9 (3) Hypertension Hypertension type: unspecified Qualified Code(s): I10 - Essential (primary) hypertension
--- NOTE | 2022-10-15 11:53 | CT Scan Report ---
CT OF THE CHEST WITHOUT IV CONTRAST CLINICAL HISTORY: Dyspnea, +ANCA. COMPARISON STUDY: Chest CT June 19, 2017. Chest radiograph October 12, 2022. CT DOSE: 984.21 mGy.cm TECHNIQUE: Axial images of the chest were obtained without IV contrast. Images were reviewed in the axial, sagittal, and coronal planes. IV contrast was not administered for this examination. Automat ed exposure control was utilized for the study. A dose lowering technique was utilized adhering to t he principles of ALARA. FINDINGS: There is no pericardial effusion. Size of the heart is at the upper limits of normal. The majority of the previously described enlarged mediastinal lymph nodes have slightly decreased in size since CT of June 19, 2017. Index right paratracheal lymph node on image 72 of 253 measures 2.1 x 1.9 cm. It previously measured 2.7 x 2.2 cm. A subcarinal lymph node on image 110 measures 2.9 x 1.3 cm. It previously measured 3 x 1.6 cm. A 1.9 x 0.7 cm anterior mediastinal nodule on axial image 177 has mildly increased in size. Additional left cardiophrenic angle nodules are noted. Conglomerate no dule on image 194 measures 2.8 x 1.5 cm. This has slightly increased since abdominal CT of February 222018. A small left pleural effusion is present. There is no pneumothorax. Interlobular septal thic kening is noted. Numerous scattered nodules throughout the lungs are present. These were present on c hest CT June 19, 2017. These include pericecal fissural nodules and a lymphatic distribution. Oh eolar and groundglass opacities within lungs are also noted. No acute fractures or suspicious lesions within the bony thorax are present. Visualized portions of the upper abdomen are unremarkable. IMPRESSION: 1. Interlobular septal thickening consistent with interstitial pulmonary edema. Alveolar and groundgl ass opacities within the lungs favor alveolar pulmonary edema. A superimposed infectious process coul d appear similar but is considered less likely. 2. Small left pleural effusion. 3. Multiple mildly enlarged mediastinal lymph nodes. Several have decreased in size while a few cardi ophrenic angle nodes have slightly increased. These are probably benign but remain indeterminate and a chest CT in 6 months is recommended. 4. Redemonstration of numerous pulmonary nodules, some of which are in a lymphatic distribution. Thes e are nonspecific however raise the possibility of a granulomatous process such as sarcoidosis. These can be assessed on follow-up CT to ensure stability. ACT 112: Negative or not required by law. Electronically signed by: Bandar Narvaez M.D. 10/15/2022 11:50 AM
[2022-10-15] MEDS: PANTOprazole 40 MG TAB PO SCH (12:03)
[2022-10-15] MEDS: predniSONE 20 MG TAB PO SCH (12:03)
--- NOTE | 2022-10-15 15:59 | Hospitalist Progress Note ---
Date of Service October 15, 2022 Assessment & Plan (1) Acute respiratory failure with hypoxia: Plan: 52-year-old male with past medical history of hypothyroidism, CKD 4-5, hypertension, HLD, autism spectrum disorder, papillary adenocarcinoma of the thyroid, blindness, pseudotumor cerebri, neuropathy who presents with acute shortness of breath this morning in setting of systolic of 200+ and hypervolemia secondary to worsening renal failure and flash pulmonary edema -Still requiring supplemental O2 but dyspnea has improved, cough persists -cxr: cardiomegaly w/ pulmonary edema. small pleural effusions w/ mild bibasilar consolidation. Still with crackles on examination -CT chest 10/15 With pulmonary edema, mediastinal lymphadenopathy, and multiple pulmonary nodules possibly consistent with sarcoidosis -resp biofire neg -wbc 13s on admission and then up to 21 secondary to steroids given in the ER. bibasilar consolidation: more likely from atelectasis rather than pneumonia, negative procal -Continue diuresis as able to given renal failure-giving Lasix 40 Mg IV x1 on 10/14 and now on Lasix 20 Mg p.o. twice daily -Continue supplemental O2 to keep pulse ox greater than 92% -Starting prednisone 60 mg daily for renal issues, but will also likely help cough and wheeze if has sarcoidosis? -Consider pulmonary inpatient consult versus outpatient referral (2) Acute kidney injury superimposed on CKD: Plan: With TIFFANY on CKD stage 4-5, +COLLINS and +cANCA, with pulm edema, volume overload, and metabolic acidosis, accelerated HTN Was to have renal biopsy on the day of admission but this was cancelled Headed towards dialysis most likely, but not for today. No evidence of uremia or hyperkalemia. Is volume overloaded but is clinically stable. With metabolic acidosis Follow renal function, creatinine slightly improved at 5.95 BUN down to 79, metabolic acidosis slightly improved since starting sodium bicarbonate tablets Appreciate nephrology consultation Did receive 1 dose of Lasix 40 Mg IV x1 on 09/13, now continues on Lasix 20 Mg p.o. twice daily as per nephrology If needed urgent hemodialysis, would need transfer out for tunneled dialysis catheter as vascular surgery not available here at this time. If transferred out, would request renal biopsy be performed as well for diagnosis/etiology of advanced renal failure Nephrology is going to discuss the potential of doing a renal biopsy at this facility next week Follow urine output, daily weights, strict I's and O's Low-sodium diet With hyperphosphatemia-May need phosphate binder Urinalysis with 3+ blood on dipstick but 0 RBCs- checked CK which is elevated at 1600 consistent with myositis Starting prednisone 60 mg daily -Follow BMP (3) Elevated CK: Plan: Somewhat elevated at 1600 and now down to 1300 consider underlying polymyositis, MCTD, SLE? has had 3-4+ blood on UA but 0-4 RBCs since at least 2018 but CK not previously checked check CK, aldolase, LDH, ESR, CRP, anti-dsDNA in AM We will place Rheum consult inpt for Sunday Follow CK (4) Hypertension: Plan: Blood pressures better controlled after accelerated hypertension upon admission - Continue home metoprolol tartrate 100mg PO BID, amlodipine 10mg PO daily, and furosemide -Discontinued Nitropaste given on admission -Giving IV Lasix and now p.o. Lasix (5) Anemia: Plan: Hemoglobin mildly low at 12 Normocytic B12, folate normal Iron studies with slightly low transferrin saturation 14%, ferritin elevated 761 which is also an acute phase reactant-was given IV Venofer by nephrology in the morning Anemia could also be related to hypothyroidism (6) Pulmonary nodules: Plan: With multiple pulmonary nodules and mediastinal and hilar lymphadenopathy some of which is stable from previous CT in 2018 Suggestive of sarcoidosis Patient is also a smoker-needs CT follow-up and pulmonary referral as an outpatient Check vitamin D 1, 25OH as this can be elevated with sarcoidosis Check DENIA level which has been checked previously and was normal Starting prednisone 60 mg daily as noted above for renal failure (7) Hypothyroidism: Plan: -Continue home levothyroxine 250 mcg. TSH elevated at 18 Patient reports he takes his levothyroxine with all of his other oral medications-advised to take it alone in the future Continue current dose for now and check TSH in 4 to 6 weeks has a h/o thyroid CA consider outpt Endo referral (8) Postnasal drip: Plan: -Flonase (9) Legally blind: Plan: -Chronic, secondary to increased pressure, pseudotumor cerebri? Follows with ophthalmology (10) Pseudotumor cerebri: Plan: - Status post sigmoid sinus venous stent 03/2021 Follows with neurology (11) Tobacco use disorder: Plan: -Nicotine patch and as needed nicotine gum as he is still having cravings (12) Idiopathic polyneuropathy: Plan: -Per outpatient neurology, did not tolerate Cymbalta could be related to profound hypothyroidism over the years? check B12 and was normal Plan Diet: Heart healthy, low-sodium DVT prophylaxis: SQ heparin Code: Full Dispo: Continued stay med surg I discussed his care with nephrology Admission and Anticipated Discharge Date Admission Date: October 12, 2022 Subjective Patient was anxious to leave the hospital earlier but nephrology convinced him to stay for ongoing monitoring of his renal failure and he was agreeable to a CAT scan of the chest for his persistent cough. He was started on prednisone high-dose today by nephrology When I saw the patient in the afternoon, he was taking a nap and reported this was the best he has felt in a long time and been able to sleep since starting prednisone. He is making urine Physical Exam Constitutional: WD/WN, vitals as above + obese Neck: trachea midline, no thyromegaly Respiratory: normal respiratory effort and + cough Auscultation: + crackles (Bibasilar); no rhonchi and no wheezes Cardiovascular: Rate/Rhythm: regular rate and regular rhythm Extremities: + edema (1+ pitting edema to the knees bilaterally) Chest (Breasts): Chest: normal inspection of chest Gastrointestinal (Abdomen): normal bowel sounds, soft, nontender, no hepatosplenomegaly Musculoskeletal: Extremities: extremities normal to inspection; no cyanosis and no clubbing Skin: no rashes, warm and dry + rash (Hypopigmented rash over multiple areas of body) Neurologic: moves all extremities and awake; no focal motor deficits Psychiatric: A+Ox3, euthymic affect Results & Data Results & Data Vital Signs (Past 12 Hours) Vital Signs Temp Pulse Resp BP Pulse Ox O2 Del Method O2 Flow Rate 10/15/22 15:09 36.7 C 76 20 116/71 91 Room Air 10/15/22 14:49 92 Room Air 10/15/22 11:49 36.8 C 82 18 116/67 92 Room Air 10/15/22 08:45 Nasal Cannula 2 10/15/22 07:30 36.6 C 82 18 145/80 H 94 Nasal Cannula 2 Laboratory Results CBC, BMP, iron studies, B12 and folate, LDH, CK, ESR and CRP all reviewed PG Care Time/CCT Total # of Minutes Spent Total Time Spent with Patient: Total time spent is greater than 50% in coordination of care (as documented) at patient's floor/unit and/or counseling patient: Coding Level of Care Code 80672 SUB INP/OBS CARE 3/50MIN Diagnoses Acute respiratory failure with hypoxia J96.01 Acute kidney injury superimposed on CKD N17.9; N18.9 Elevated CK R74.8 Hypertension I10 Hypertension type: unspecified Anemia D64.9 Pulmonary nodules R91.8 Hypothyroidism E03.9 Postnasal drip R09.82 Legally blind H54.8 Pseudotumor cerebri G93.2 Tobacco use disorder F17.200 Idiopathic polyneuropathy G60.9 (4) Hypertension Hypertension type: unspecified Qualified Code(s): I10 - Essential (primary) hypertension
[2022-10-15] MEDS: ALBUTEROL 0.083% NEBU SOLN 3 ML VIAL NEB SCH ×2 (16:24→19:20)
[2022-10-15] MEDS: FLUTICASONE PROPIONATE NA SPR 16 GM BTL NAE SCH (17:09)
[2022-10-16] MEDS: LEVOTHYROXINE SODIUM 50 MCG TABLET PO SCH (05:36)
[2022-10-16] MEDS: LEVOTHYROXINE SODIUM 200 MCG TABLET PO SCH (05:36)
[2022-10-16] MEDS: HEPARIN SOD 5,000 UNIT/0.5 ML VIAL SQ SCH ×3 (05:36→22:40)
[2022-10-16 06:44] LABS: Hematocrit (blood only) 34.6 % (42.0-52.0); Hemoglobin 12.1 g/dl (14.0-18.0); Mean Corpuscular Hemoglobin 29.5 pg (25.0-34.0); Mean Corpuscular Volume 84.4 fL (80.0-100.0); Mean Platelet Volume 11.1 fL (9.4-12.4); Platelet Count 244 K/uL (130-400); RDW Coefficient of Variation 14.1 % (11.5-14.5); RDW Standard Deviation 43.2 fL (36.4-46.3); White Blood Count 14.29 K/ul (4.8-10.8)
[2022-10-16 07:09] LABS: Albumin Level 3.5 gm/dl (3.4-5.0); BUN Creatinine Ratio 12.7 (10-20); Calcium 6.8 mg/dl (8.6-10.3); Creatinine Clr Calc Pharmacy 21.4 ml/min; Est GFR (African American) 11.3 ml/min; Est GFR (Non-African American) 9.7 ml/min; Phosphorus 5.1 mg/dl (2.5-4.9)
[2022-10-16] MEDS: ALBUTEROL 0.083% NEBU SOLN 3 ML VIAL NEB SCH ×4 (07:23→20:22)
[2022-10-16] MEDS: SODIUM BICARBONATE 650 MG TAB PO SCH ×2 (08:38→20:55)
[2022-10-16] MEDS: amLODIPine BESYLATE 5 MG TAB PO SCH (08:39)
[2022-10-16] MEDS: FUROSEMIDE 20 MG TAB PO SCH ×2 (08:39→17:04)
[2022-10-16] MEDS: CALCITRIOL 0.25 MCG CAPSULE PO SCH (08:39)
[2022-10-16] MEDS: predniSONE 20 MG TAB PO SCH (08:40)
[2022-10-16] MEDS: CALCIUM CARBONATE 500 MG CHEWABLE TAB PO SCH ×3 (08:40→20:53)
[2022-10-16] MEDS: METOPROLOL TARTRATE 100 MG TAB PO SCH ×2 (08:40→20:54)
[2022-10-16] MEDS: PANTOprazole 40 MG TAB PO SCH (08:40)
[2022-10-16] MEDS: NICOTINE 21 MG/24 HR TDSY TD SCH (08:40)
--- NOTE | 2022-10-16 12:40 | Nephrology Progress Note ---
Date of Service October 16, 2022 Assessment & Plan (1) Acute kidney injury superimposed on CKD: Plan: Non-oliguric. Electrolytes acceptable. Continued improvement in fluid retention. No emergent indication for dialysis. Baseline CKD IV A3. Potential future indications for dialysis were reviewed in detail today. Prednisone 60 mg daily started yesterday. I reviewed the case with Dr. Phillips of rheumatology this morning. I also discussed the plan of care with Dr. Dolan (IR at [facility]). Dr. Dolan stated that he could reschedule the previously scheduled outpatient kidney biopsy for Sunday or afternoon. I told him that I will be in contact regarding Chris's status moving forward. Medications are appropriately dosed for kidney function. Continue calcitriol 0.25 mcg daily. Calcium carbonate 1 tab TID for hypocalcemia. Continue Furosemide 20 mg BID, goal is to encourage continued slightly negative fluid balance. (2) Metabolic acidosis with increased anion gap and accumulation of organic acids: Plan: Attributed to kidney dysfunction. Continue NaHCO3 650 mg BID. (3) Hypertension: Plan: BP improved. Remains on amlodipine and metoprolol per home Rx. Continue furosemide to encourage negative fluid balance. Renal artery duplex non-diagnostic due to habitus but velocities not appreciably elevated. (4) Proteinuria: Plan: Avoid DENIA/ARB in setting of TIFFANY. (5) Elevated CK: Plan: Discussed with rheumatology this morning. MRI of the thighs and myositis panel requested. (6) Hypoxia: Plan: Improved with diuretics. Non-contrast CT reviewed yesterday. Findings of some lymph node enlargement and pulmonary edema. CT does not demonstrate significant evidence of vasculitis. (7) Anemia: Plan: H/H stable. Hgb >11. Hold CAYETANO therapy. Venofer 200 mg IV x 2nd dose today. Admission and Anticipated Discharge Date Admission Date: October 12, 2022 Subjective No acute events overnight. Chris reports improvement today. He was able to sleep last night. Cough significantly improved. Overall, Chris feels well. Edema is improving. He continues to express frustration regarding polyuria from diuretic s. Review of Systems Review of Systems: All systems reviewed & are unremarkable except as noted in HPI & below Physical Exam Constitutional: well developed and + morbidly obese; no acute distress Eyes: no scleral abnormality and no corneal abnormality ENMT: Mouth: no oral mucosal abnormality and oral mucous membranes not dry Neck: normal visual inspection and trachea midline Respiratory: normal respiratory effort Auscultation: lungs clear to auscultation bilaterally and + rales (few at right base) Cardiovascular: Rate/Rhythm: regular rate Heart Sounds: normal S1 and normal S2 Extremities: + edema Musculoskeletal: Extremities: no cyanosis and no clubbing Skin: normal turgor; no rashes, no lesions and no jaundice Neurologic: Motor/Sensory: no tremor and no asterixis Psychiatric: Orientation: alert and oriented x 3 Results & Data Vital Signs (Past 12 Hours) Vital Signs Temp Pulse Resp BP Pulse Ox O2 Del Method 10/16/22 08:00 Room Air 10/16/22 07:32 36.9 C 84 18 126/80 92 Room Air 10/16/22 07:24 86 18 92 Room Air Laboratory Results Laboratory Results - last 24 hr 10/16/22 10/16/22 10/16/22 05:51 05:51 05:51 WBC 14.29 H RBC 4.10 L Hgb 12.1 L Hct 34.6 L MCV 84.4 MCH 29.5 MCHC 35.0 RDW Std Deviation 43.2 RDW Coeff of Tiffanie 14.1 Plt Count 244 MPV 11.1 Sodium 139 Potassium 4.0 Chloride 109 H Carbon Dioxide 17 L Anion Gap 13 H BUN 78 H Creatinine 6.12 H* Est Cr Clr Drug Dosing 21.4 Est GFR ( Amer) 11.3 Est GFR (Non-Af Amer) 9.7 BUN/Creatinine Ratio 12.7 Glucose 109 H Calcium 6.8 L Phosphorus 5.1 H Albumin 3.5 8-MH-4-Methylglutar CoA Angiotensin Convert Enz Pending Vit D 1,25-Dihyd Total Pending 1,25 Dihydroxy Vit D2 Pending 1,25 Dihydroxy Vit D3 Pending Anti-Symone-1 Ab (IB) EJ Antibody OJ Antibody Mi-2-Alpha Ab Mi-2-Beta Ab NXP-[address]-12 Antibody SRP Ab MDA5 Ab Myositis TIF1-gamma Ab Anti-cN-1A Antibody 10/16/22 09:56 WBC RBC Hgb Hct MCV MCH MCHC RDW Std Deviation RDW Coeff of Tiffanie Plt Count MPV Sodium Potassium Chloride Carbon Dioxide Anion Gap BUN Creatinine Est Cr Clr Drug Dosing Est GFR ( Amer) Est GFR (Non-Af Amer) BUN/Creatinine Ratio Glucose Calcium Phosphorus Albumin 7-BK-8-Methylglutar CoA Pending Angiotensin Convert Enz Vit D 1,25-Dihyd Total 1,25 Dihydroxy Vit D2 1,25 Dihydroxy Vit D3 Anti-Symone-1 Ab (IB) Pending EJ Antibody Pending OJ Antibody Pending Mi-2-Alpha Ab Pending Mi-2-Beta Ab Pending NXP-[address]-12 Antibody Pending SRP Ab Pending MDA5 Ab Pending Myositis TIF1-gamma Ab Pending Anti-cN-1A Antibody Pending PG Care Time/CCT Total # of Minutes Spent Total Time Spent with Patient: Total time spent is greater than 50% in coordination of care (as documented) at patient's floor/unit and/or counseling patient: Coding Level of Care Code 49917 SUB INP/OBS CARE 3/50MIN Diagnoses Acute kidney injury superimposed on CKD N17.9; N18.9 Metabolic acidosis with increased anion gap and accumulation of organic acids E87.20 Hypertension I10 Hypertension type: unspecified Proteinuria R80.9 Elevated CK R74.8 Hypoxia R09.02 Anemia D64.9 (3) Hypertension Hypertension type: unspecified Qualified Code(s): I10 - Essential (primary) hypertension
[2022-10-16] MEDS ORDERED: IRON SUCROSE 200 MG in 0.9 % SODIUM CHLORIDE 100 ML IV ONE (13:15)
--- NOTE | 2022-10-16 14:24 | Hospitalist Progress Note ---
Date of Service October 16, 2022 Assessment & Plan (1) Acute respiratory failure with hypoxia: Plan: He is now on room air. Intravenous Lasix has been switched to oral dosing. Continue to monitor intake and output. (2) Acute kidney injury superimposed on CKD: Plan: Monitor intake and output. Serial labs. Renal biopsy was scheduled to be done at the time of hospitalization and will be rescheduled as an outpatient. Appreciate nephrology consultation and recommendations. He is now on oral pre dnisone (3) Elevated CK: Plan: No evidence of acute coronary syndrome. Rheumatology consultation pending Follow CK (4) Hypertension: Plan: Uncontrolled on admission. Now satisfactory. Continue current medical management. Continue home metoprolol tartrate 100mg PO BID, amlodipine 10mg PO daily, and furosemide . Discontinued Nitropaste given on admission (5) Anemia: Plan: Hemoglobin mildly low at 12. Normocytic. B12, folate normal. Iron studies with slightly low transferrin saturation 14%, ferritin elevated 761 which is also an acute phase reactant. Was given IV Venofer by nephrology in the morning (6) Pulmonary nodules: Plan: multiple pulmonary nodules and mediastinal and hilar lymphadenopathy some of which is stable from previous CT in 2018. Sarcoidosis is in the differential. Rheumatology consultation pending. He is now on oral prednisone therapy (7) Hypothyroidism: Plan: Continue home levothyroxine 250 mcg. TSH elevated at 18. Free T4 level is within normal range (8) Pseudotumor cerebri: Plan: Status post sigmoid sinus venous stent 03/2021. (9) Tobacco use disorder: Plan: Nicotine patch and as needed nicotine gum. 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 B12 normal Plan Diet: Heart healthy, low-sodium DVT prophylaxis: SQ heparin Code: Full Dispo: Hopefully home tomorrow, October 17 Admission and Anticipated Discharge Date Admission Date: October 12, 2022 Subjective Alert. No complaints. Nephrology ordered MRI scanning of both femurs which is pending. He is on room air. Rheumatology consultation is pending. Review of Systems Review of Systems: Constitutional-no fever or chills ENT-no blurred vision, no double vision, no epistaxis, no sore throat Respiratory-no cough, no wheezing, no shortness of breath Cardiac-no palpitations, no chest pain, no syncope GI-no nausea, vomiting, diarrhea, melena, hematochezia -no urinary retention, no urinary incontinence, no dysuria, no hematuria Musculoskeletal-no joint pain, no muscle tenderness Skin-no bruising, no rashes, no pruritus Neuro-no isolated weakness, no paresthesia, no weakness Psych-no depression, no anxiety Physical Exam Physical Exam: General-alert and oriented x3, no fevers, no chills HEENT-head atraumatic and normocephalic, pupils equal and reactive to light, extraocular muscles intact Neck-no lymphadenopathy or thyromegaly, trachea midline Chest-clear to auscultation percussion. No rales wheezing or rhonchi Cardiac-regular rate and rhythm, normal S1 and S2 Abdomen-normal bowel sounds, nontender, no hepatosplenomegaly Extremities-no cyanosis, clubbing, or edema Neuro-cranial nerves II through XII intact, motor and sensory function within normal limits, strength symmetrical, no focal deficits Psych-normal affect, normal mood Results & Data Results & Data Vital Signs (Past 12 Hours) Vital Signs Temp Pulse Resp BP Pulse Ox O2 Del Method 10/16/22 13:10 78 16 92 Room Air 10/16/22 08:00 Room Air 10/16/22 07:32 36.9 C 84 18 126/80 92 Room Air 10/16/22 07:24 86 18 92 Room Air Laboratory Results 10/16/22 05:51 10/16/22 05:51 PG Care Time/CCT Total # of Minutes Spent Total Time Spent with Patient: Total time spent is greater than 50% in coordination of care (as documented) at patient's floor/unit and/or counseling patient: Coding Level of Care Code 99335 SUB INP/OBS CARE 3/50MIN Diagnoses Acute respiratory failure with hypoxia J96.01 Acute kidney injury superimposed on CKD N17.9; N18.9 Elevated CK R74.8 Hypertension I10 Hypertension type: unspecified Anemia D64.9 Pulmonary nodules R91.8 Hypothyroidism E03.9 Pseudotumor cerebri G93.2 Tobacco use disorder F17.200 Idiopathic polyneuropathy G60.9 (4) Hypertension Hypertension type: unspecified Qualified Code(s): I10 - Essential (primary) hypertension
--- NOTE | 2022-10-16 16:39 | Rheumatology Consultation ---
Rheumatology Consultation DOS October 16, [address] Foster Assessment & Plan (1) COLLINS positive: Positive COLLINS is noted. I do not identify pronounced features consistent with an COLLINS associated connective tissue disorder with the exception of his kidneys. He has hematuria and proteinuria and with the positive COLLINS, the suspicion is for potential renal involvement. C3 and C4 were previously normal which is reassuring. To be complete, I agree with renal biopsy that was previously scheduled to exclude lupus nephritis Consider adding double-stranded DNA, Knowles, and Sjogren antibodies with next blood draw. These typically will take time to come back and I am happy to follow these up as an outpatient I do not identify a need to initiate immunosuppressive therapies (CellCept, azathioprine, etc.) based on this COLLINS test with the current data available (2) Abnormal ANCA test: Some mixed test results as initial c-ANCA showed positivity but more specific MD-3 was negative. MPO was low positive Not identifying pronounced ANCA associated vasculitis features with the exception of potential renal involvement with the hematuria and proteinuria As mentioned above, agree with renal biopsy Patient was placed on steroids through nephrology and this can be continued until more data is obtained No obvious hemoptysis, pulmonary hemorrhage, or cutaneous features identified at this time Elevated inflammatory markers are noted (3) Acute kidney injury superimposed on CKD: Recommend kidney biopsy when possible (hopefully sooner rather than later) to expedite data collection and treatment plan Patient placed on steroids by nephrology (4) Elevated CK: Possible influence from hypothyroidism on top of CKD. Also evaluating for separate underlying myopathic process Elevated inflammatory markers are noted. He does not have pronounced weakness on examination and he has not had myalgias To be complete, checking myositis specific and myositis associated antibodies MRI of bilateral femurs to look for inflammatory myositis changes. If identified, recommend biopsy with outpatient follow-up History of Present Illness Reason for Consultation: Abn blood work Requesting Physician: Dr. Foster Attending Physician: Carlos Vargas MD History of Present Illness This is a 52-year-old man who was recently admitted with respiratory distress. He has history of chronic kidney disease and was scheduled for renal biopsy as an outpatient. While preparing for the biopsy, he began having URI symptoms including stuffy nose, cough, and overall not feeling well. He had difficulty catching his breath and this prompted providers to recommend eval in the ER setting. In the ER on 10/12/2022, he was found to be volume overloaded and he wa s admitted. Nephrology has been consulted to help follow renal status as well as volume management. Evaluation identified abnormal ANCA serologies as well as COLLINS 1: 320 and elevated CK level prompting consultation by rheumatology. Besides the recent respiratory changes, he denies any new or recent illness. Denies new medication besides recently used Topamax and Cymbalta. He denies skin rashes. Denies photosensitive rashes. Denies oral sores or ulcerations. Denies skin tightening or skin thickening. Denies sicca symptoms. Denies history consistent with Raynaud's. Denies history of thromboembolic events. Denies joint swelling. Denies hemoptysis. Recent cough but this has improved. He denies weakness. He denies muscle pain. Allergies Allergy/AdvReac Type Severity Reaction Status Date / Time No Known Allergies Allergy Verified 09/22/22 09:57 Home Medications Medication Instructions Recorded Confirmed Type amlodipine 10 mg tablet 10 mg PO DAILY #90 tabs 11/22/21 10/12/22 Rx levothyroxine 200 mcg tablet 200 mcg PO DAILY #90 tabs 11/22/21 10/12/22 Rx (Synthroid) metoprolol tartrate 100 mg tablet 100 mg PO BID #180 tabs 11/22/21 10/12/22 Rx potassium chloride 20 mEq 20 meq PO DAILY #90 tabs 11/22/21 10/12/22 Rx tablet,extended release(part/cryst) levothyroxine 50 mcg tablet 50 mcg PO DAILY #90 tabs 12/06/21 10/12/22 Rx furosemide 20 mg tablet 20 mg PO DAILY #90 tabs 03/01/22 10/12/22 Rx aspirin 81 mg tablet,delayed 81 mg PO DAILY #90 tabs 03/20/22 10/12/22 Rx release (Ecotrin Low Strength) cholecalciferol (vitamin D3) 1,250 50,000 unit PO .COMPLEX 12 weeks 03/20/22 10/12/22 Rx mcg (50,000 unit) capsule #12 caps Patient History Medical History (Updated 10/16/22 @ 16:47 by Calixto Phillips DO) COLLINS positive Autism spectrum disorder Chronic kidney disease Chronic low back pain Edema of both legs History of papillary adenocarcinoma of thyroid Hyperlipidemia Hypertension Hypothyroidism s/p thyroidectomy Legally blind due to visual field deficits Metabolic acidosis with increased anion gap and accumulation of organic acids Proteinuria Pseudotumor cerebri s/p transverse sinus stent 03/2021 Pulmonary nodules Surgical History History of thyroidectomy Family History Mother Hypertension Other Coronary heart disease Denies family history of Ovarian cancer Prostate cancer Myocardial infarction Breast cancer Colorectal cancer Social History Smoking Status: Current some day smoker Tobacco Type: Smokeless Tobacco (Dip or Chew) Second Hand Exposure: No; Do You Dip or Chew Tobacco: Yes; Hx Alcohol Use: Yes Alcohol type: beer Hx Substance Use: No Preferred Language: Upper Sorbian Communication Ability: Effective Visual Impairment: No Limitations Hearing Ability: Normal Client Care Manager Required: No Beliefs That Will Affect Care: None marital status: Current Living Situation: Parent and Family Current Living Situation Comment: lives with parents current occupational status: disabled current occupation: unemployed Feels Safe at Home: Yes Dental Care, Regularly: No Physical Activity Frequency: Does not Exercise Assistive Devices: None Review of Systems Review of Systems: Denies fevers or chills. Denies chest pain. Some shortness of breath persists but is overall better. Cough has improved. He denies nausea or vomiting. Denies diarrhea or constipation. Denies dark or black stools. Denies sudden weight changes. Physical Exam Physical Exam: General: Alert and oriented. No acute distress Eyes: Pupils are equal. Extraocular muscles intact. Mouth: No oral sores Neck: Supple, no adenopathy Cardiovascular: Heart regular, no rubs Pulmonary: Some coarse breath sounds with slight wheeze noted on expiration Abdomen: Soft, nontender. Positive bowel sounds. Extremities: pitting edema noted Skin: No purpuric lesions identified Musculoskeletal: No MCP, PIP, or wrist swelling. Knees are cool to touch and no effusions noted. No dactylitis. Results & Data Vital Signs (Past 12 Hours) Vital Signs Temp Pulse Resp BP Pulse Ox O2 Del Method 10/16/22 15:16 36.6 C 82 16 125/76 91 Room Air 10/16/22 13:10 78 16 92 Room Air 10/16/22 08:00 Room Air 10/16/22 07:32 36.9 C 84 18 126/80 92 Room Air 10/16/22 07:24 86 18 92 Room Air Results Rheum Results - All: Sodium 139 mmol/L (136-145) 10/16/22 05:51 Potassium 4.0 mmol/L (3.5-5.1) 10/16/22 05:51 Chloride 109 mmol/L (98-107) H 10/16/22 05:51 Carbon Dioxide 17 mmol/L (21-32) L 10/16/22 05:51 Anion Gap 13 (3-11) H 10/16/22 05:51 BUN 78 mg/dl (6-23) H 10/16/22 05:51 Creatinine 6.12 mg/dl (0.6-1.4) H* 10/16/22 05:51 Est GFR ( Amer) 11.3 ml/min 10/16/22 05:51 Est GFR (Non-Af Amer) 9.7 ml/min 10/16/22 05:51 BUN/Creatinine Ratio 12.7 (10-20) 10/16/22 05:51 Glucose 109 mg/dl (70-99(Fasting)) H 10/16/22 05:51 Calcium 6.8 mg/dl (8.6-10.3) L 10/16/22 05:51 Phosphorus 5.1 mg/dl (2.5-4.9) H 10/16/22 05:51 Total Bilirubin 0.5 mg/dl (0.2-1.0) 10/13/22 07:34 Direct Bilirubin 0.2 mg/dl (0-0.2) 03/27/19 06:17 AST 31 U/L (13-39) 10/13/22 07:34 ALT 23 U/L (7-52) 10/13/22 07:34 Alkaline Phosphatase 90 U/L (34-104) 10/13/22 07:34 Total Protein 8.0 gm/dl (6.0-8.3) 10/13/22 07:34 Albumin 3.5 gm/dl (3.4-5.0) 10/16/22 05:51 Globulin 4.0 gm/dl (2.5-4.0) 10/13/22 07:34 Albumin/Globulin Ratio 1.0 (0.9-2) 10/13/22 07:34 Lactate Dehydrogenase 487 U/L (86-244) H 10/15/22 06:14 RBC 4.10 M/uL (4.70-6.10) L 10/16/22 05:51 WBC 14.29 K/ul (4.8-10.8) H 10/16/22 05:51 Hgb 12.1 g/dl (14.0-18.0) L 10/16/22 05:51 Hct 34.6 % (42.0-52.0) L 10/16/22 05:51 MCV 84.4 fL (80.0-100.0) 10/16/22 05:51 MCH 29.5 pg (25.0-34.0) 10/16/22 05:51 MCHC 35.0 g/dL (32.0-36.0) 10/16/22 05:51 RDW Std Deviation 43.2 fL (36.4-46.3) 10/16/22 05:51 RDW Coeff of Tiffanie 14.1 % (11.5-14.5) 10/16/22 05:51 Plt Count 244 K/uL (130-400) 10/16/22 05:51 MPV 11.1 fL (9.4-12.4) 10/16/22 05:51 Nucleated RBC % (auto) 0.6 % 03/21/19 22:08 Absolute Nucleated RBC 0.07 K/uL (0-0) H 03/21/19 22:08 Neut % (Auto) 80.8 % 10/15/22 06:14 Lymph % (Auto) 6.2 % 10/15/22 06:14 [place] # (Auto) 1.18 K/uL (0.11-0.59) H 10/15/22 06:14 Eos # (Auto) 0.24 K/uL (0-0.50) 10/15/22 06:14 Immature Gran % (Auto) 0.7 % 10/15/22 06:14 Neut # (Auto) 9.58 K/uL (1.40-6.50) H 10/15/22 06:14 Lymph # (Auto) 0.73 K/uL (1.2-3.4) L 10/15/22 06:14 [place] # (Auto) 1.18 K/uL (0.11-0.59) H 10/15/22 06:14 Eos # (Auto) 0.24 K/uL (0-0.50) 10/15/22 06:14 Baso # (Auto) 0.04 K/uL (0-0.2) 10/15/22 06:14 Immature Gran # (Auto) 0.08 K/uL (0.01-0.20) 10/15/22 06:14 ESR 81 mm/hr (0-20) H 10/15/22 06:14 C-Reactive Protein 4.82 mg/dl (0-0.5) H 10/15/22 06:14 COLLINS Titer 1:320 titer H 09/23/22 09:55 COLLINS Titer 2 1:160 titer H 03/01/21 10:37 Rheumatoid Factor <14 IU/mL (<14) 03/01/21 10:37 Urine Color Yellow 10/14/22 05:52 Urine Appearance Clear (Clear) 10/14/22 05:52 Urine pH 5.0 (4.5-7.5) 10/14/22 05:52 Ur Specific [place] 1.016 (1.000-1.030) 10/14/22 05:52 Urine Protein 3+ (Negative) H 10/14/22 05:52 Urine Glucose (UA) Negative (Negative) 10/14/22 05:52 Urine Ketones Negative (Negative) 10/14/22 05:52 Urine Blood 3+ (Negative) H 10/14/22 05:52 Urine Nitrite Negative (Negative) 10/14/22 05:52 Urine Bilirubin Negative (Negative) 10/14/22 05:52 Urine Urobilinogen Negative (Negative) 10/14/22 05:52 Ur Leukocyte Esterase Negative (Negative) 10/14/22 05:52 Urine WBC (Auto) 1-5 /hpf (0-5) 10/14/22 05:52 Urine RBC (Auto) 0-4 /hpf (0-4) 10/14/22 05:52 U Hyaline Cast (Auto) 1-5 /lpf (0-5) 10/14/22 05:52 U Epithel Cells (Auto) >30 /lpf (0-5) H 10/14/22 05:52 Urine Bacteria (Auto) Negative (Negative) 10/14/22 05:52 Urine Yeast Not Reportable 10/14/22 05:52 25-OH Vitamin D Total 25.8 ng/ml (30-100) L 08/17/22 14:09 TSH 18.408 uIu/ml (0.300-4.500) H 10/12/22 08:07 Result comment: CK: 1315 PR3: neg MPO: 1.5 PG Care Time/CCT Total # of Minutes Spent Total Time Spent with Patient: Total time spent is greater than 50% in coordination of care (as documented) at patient's floor/unit and/or counseling patient: Coding Level of Care Code 42543 INT INP/OBS CARE 2/55MIN Diagnoses COLLINS positive R76.8 Abnormal ANCA test R76.8 Acute kidney injury superimposed on CKD N17.9; N18.9 Elevated CK R74.8
[2022-10-16] MEDS: FLUTICASONE PROPIONATE NA SPR 16 GM BTL NAE SCH (20:53)
[2022-10-17] MEDS: ALBUTEROL 0.083% NEBU SOLN 3 ML VIAL NEB SCH ×3 (01:45→13:13)
[2022-10-17 06:12] LABS: Basophils # (auto) 0.03 K/uL (0-0.2); Basophils % (auto) 0.2 %; Eosinophils # (auto) 0.02 K/uL (0-0.50); Eosinophils % (auto) 0.1 %; Hematocrit (blood only) 38.4 % (42.0-52.0); Hemoglobin 12.8 g/dl (14.0-18.0); Immature Granulocytes # (auto) 0.21 K/uL (0.01-0.20); Immature Granulocytes % (auto) 1.1 %; Lymphocytes # (auto) 0.87 K/uL (1.2-3.4); Lymphocytes % (auto) 4.4 %; Mean Corpuscular Hemoglobin 29.2 pg (25.0-34.0); Mean Corpuscular Hgb Conc 33.3 g/dL (32.0-36.0); Mean Corpuscular Volume 87.7 fL (80.0-100.0); Mean Platelet Volume 11.2 fL (9.4-12.4); Monocytes % (auto) 8.1 %; Neutrophils # (auto) 17.06 K/uL (1.40-6.50); Neutrophils % (auto) 86.1 %; Platelet Count 319 K/uL (130-400); RDW Coefficient of Variation 14.6 % (11.5-14.5); RDW Standard Deviation 46.8 fL (36.4-46.3); Red Blood Count 4.38 M/uL (4.70-6.10); White Blood Count 19.79 K/ul (4.8-10.8)
[2022-10-17 06:35] LABS: BUN Creatinine Ratio 13.2 (10-20); Calcium 6.9 mg/dl (8.6-10.3); Creatinine Clr Calc Pharmacy 21.4 ml/min; Est GFR (African American) 11.2 ml/min; Est GFR (Non-African American) 9.7 ml/min
[2022-10-17] MEDS: LEVOTHYROXINE SODIUM 50 MCG TABLET PO SCH (06:41)
[2022-10-17] MEDS: LEVOTHYROXINE SODIUM 200 MCG TABLET PO SCH (06:41)
[2022-10-17] MEDS: HEPARIN SOD 5,000 UNIT/0.5 ML VIAL SQ SCH ×2 (06:42→14:13)
[2022-10-17] MEDS: CALCITRIOL 0.25 MCG CAPSULE PO SCH (08:24)
[2022-10-17] MEDS: amLODIPine BESYLATE 5 MG TAB PO SCH (08:24)
[2022-10-17] MEDS: predniSONE 20 MG TAB PO SCH (08:24)
[2022-10-17] MEDS: SODIUM BICARBONATE 650 MG TAB PO SCH (08:24)
[2022-10-17] MEDS: METOPROLOL TARTRATE 100 MG TAB PO SCH (08:24)
[2022-10-17] MEDS: NICOTINE 21 MG/24 HR TDSY TD SCH (08:25)
[2022-10-17] MEDS: FUROSEMIDE 20 MG TAB PO SCH (08:25)
[2022-10-17] MEDS: PANTOprazole 40 MG TAB PO SCH (08:25)
[2022-10-17] MEDS: CALCIUM CARBONATE 500 MG CHEWABLE TAB PO SCH ×2 (08:26→14:13)
--- NOTE | 2022-10-17 10:40 | XRay Report ---
XR chest 1V portable CLINICAL HISTORY: Pulmonary edema. COMPARISON STUDY: Chest radiograph October 12, 2022. Chest CT October 15, 2022. FINDINGS: There is no pneumothorax. Small left pleural effusion is again noted. Reticulonodular inter stitial thickening is present. Pulmonary edema may have slightly improved since chest radiograph of J une 2022. This is similar to CT of October 15, 2022. Cardiomegaly is again noted. IMPRESSION: 1. Interstitial pulmonary edema, similar to chest CT of October 15, 2022. Suspected mild improvement sin ce chest radiograph of October 12, 2022. 2. No change in a small left pleural effusion. ACT 112: Negative or not required by law. Electronically signed by: Bandar Narvaez M.D. 10/17/2022 10:38 AM
[2022-10-17] MEDS ORDERED: FUROSEMIDE 40 MG TAB PO SCH (11:45)
--- NOTE | 2022-10-17 11:54 | Discharge Summary ---
Date of Service October 17, 2022 Admission HPI Per Admitting Provider 52-year-old male with past medical history of hypothyroidism, CKD 4-5, hypertension, tobacco use disorder, HLD, autism spectrum disorder, papillary adenocarcinoma of the thyroid, blindness, pseudotumor cerebri, neuropathy who presented with shortness of breath, postnasal drip, coughing and gagging this morning. He was at rest and was planning to attend his outpatient kidney biopsy. His sister took him to the ED because of the dyspnea. Patient denies fevers, chills, chest pain, shortness of breath, nausea, vomiting, abdominal pain, diarrhea, bloody stool, or urinary symptoms. Denies history of asthma or COPD. After the treatment in the ED, patient notes that his breathing is much improved. His initial blood pressure of 204/128 improved significantly after the administration of Nitropaste and Lasix, 110/71 on most recent, without administration of antihypertensives. Patient took his home medications this morning minus the baby aspirin and furosemide. He states he has not been following a particular diet and eats everything from homemade soups to pizza. ED course: methylpred 60mg IV, duoneb, nitro paste, and Lasix 40mg IV Principal Diagnosis Acute hypoxic respiratory failure, pulmonary edema, uncontrolled hypertension, acute on chronic kidney disease stage V, positive COLLINS Discharge Exam General-alert and oriented x3, no fevers, no chills HEENT-head atraumatic and normocephalic, pupils equal and reactive to light, extraocular muscles intact Neck-no lymphadenopathy or thyromegaly, trachea midline Chest-bibasilar inspiratory rales. No wheezing Cardiac-regular rate and rhythm, normal S1 and S2 Abdomen-normal bowel sounds, nontender, no hepatosplenomegaly Extremities-no cyanosis, clubbing, or edema Neuro-cranial nerves II through XII intact, motor and sensory function within normal limits, strength symmetrical, no focal deficits Psych-normal affect, normal mood Discharge Data Allergies Allergy/AdvReac Type Severity Reaction Status Date / Time No Known Allergies Allergy Verified 09/22/22 09:57 Consultations 10/12/22 09:46 ED Decision to Admit Stat 10/12/22 13:52 Consult Nephrology Routine 10/15/22 14:22 Consult Rheumatology Routine Ordered Studies 10/14/22 08:46 US duplex renal artery Routine 10/15/22 10:59 CT chest without contrast [CT chest diagnostic wo con] Routine 10/17/22 09:25 MR femur LT wo con Routine MR femur RT wo con Routine Hospital Course (1) Acute respiratory failure with hypoxia: He is now on room air. Intravenous Lasix has been switched to oral dosing. Lasix dosage uptitrated today, October 17, based on repeat chest x-ray appearance. Continue to monitor intake and output. (2) Acute kidney injury superimposed on CKD: Monitor intake and output. Serial labs. Renal biopsy will be done this October 19, at [facility] by Dr. Dolan. Appreciate nephrology consultation and recommendations. He is now on oral prednisone (3) Elevated CK: No evidence of acute coronary syndrome. Rheumatology consultation noted Follow CK (4) Hypertension: Uncontrolled on admission. Now satisfactory. Continue current medical management. Continue home metoprolol tartrate 100mg PO BID, amlodipine 10mg PO daily, and furosemide . Discontinued Nitropaste given on admission (5) Anemia: Hemoglobin mildly low at 12. Normocytic. B12, folate normal. Iron studies with slightly low transferrin saturation 14%, ferritin elevated 761 which is also an acute phase reactant. Was given IV Venofer by nephrology (6) Pulmonary nodules: multiple pulmonary nodules and mediastinal and hilar lymphadenopathy some of which is stable from previous CT in 2018. Sarcoidosis is in the differential. Rheumatology consultation noted. He is now on oral prednisone therapy (7) Hypothyroidism: Continue home levothyroxine 250 mcg. TSH elevated at 18. Free T4 level is within normal range (8) Pseudotumor cerebri: Status post sigmoid sinus venous stent 03/2021. (9) Tobacco use disorder: Nicotine patch and as needed nicotine gum while hospitalized. Cessation recommended (10) Idiopathic polyneuropathy: Per outpatient neurology, did not tolerate Cymbalta. B12 normal Plan Diet: Heart healthy, low-sodium DVT prophylaxis: SQ heparin Code: Full Dispo: Home today, October 17, on Lasix and prednisone. He will undergo outpatient kidney biopsy at [facility] ater this week. Total Time Total Time Spent Total Time Spent (In Minutes): 45 minutes Discharge Plan Discharge Items Patient Disposition: Home - Self-Care Reason For Visit: DYSPNEA Discharge Diagnosis: Shortness of breath due to flash pulmonary edema, acute hypoxic respiratory failure, uncontrolled hypertension, acute on chronic kidney disease, positive COLLINS Activity: Resume your previous activity Non-emergency contact: Primary Care Provider Call non-emergency contact if: you have any medication questions and your symptoms worsen Follow-up/Referrals: Kaley Narvaez MD [Primary Care Provider] - Diet: Regular and Heart Healthy Addtl Attending Provider Instructions: Take Lasix 40 mg twice daily. Take prednisone 20 mg 3 times a day. See Dr. Dolan at [facility] this at noon for kidney biopsy. Arrive 1 hour prior to your appointment. You can take your medications with sips of water on morning but do not eat any breakfast on . Pending Studies at Discharge: No Stand-Alone Forms: [facility] Sm[facility] Cess[facility] Medications and DC Order Prescriptions: New furosemide 40 mg Tablet 40 mg PO BID17 Qty: 60 0RF sodium bicarbonate 650 mg Tablet 650 mg PO BID Qty: 60 0RF calcitriol 0.25 mcg Capsule 0.25 mcg PO QAM Qty: 30 0RF prednisone 20 mg tablet 20 mg PO TID Qty: 90 0RF Continued amlodipine 10 mg tablet 10 mg PO DAILY Qty: 90 3RF metoprolol tartrate 100 mg tablet 100 mg PO BID Qty: 180 3RF potassium chloride 20 mEq tablet,ER particles/crystals 20 meq PO DAILY Qty: 90 3RF levothyroxine [Synthroid] 200 mcg tablet 200 mcg PO DAILY Qty: 90 3RF levothyroxine 50 mcg tablet 50 mcg PO DAILY Qty: 90 3RF Rx Instructions: Take together with the 200 mcg tablet for a total daily dose for 250 mcg. aspirin [Ecotrin Low Strength] 81 mg tablet,delayed release (DR/EC) 81 mg PO DAILY Qty: 90 3RF cholecalciferol (vitamin D3) 1,250 mcg (50,000 unit) capsule 50,000 unit PO .COMPLEX 84 Days Qty: 12 0RF Rx Instructions: 50,000 units PO once weekly; PER PT HE IS OUT OF MEDICATION Discontinued furosemide 20 mg tablet 20 mg PO DAILY Qty: 90 3RF Discharge Orders: Discharge Order (Routine); Ordered 10/17/22 Ordered By: Carlos Vargas Admission Data Admit Date/Time: 10/12/22 12:28 Attending Provider: Carlos Vargas Admit Provider: Andrew Retana Primary Care Provider: Kaley Narvaez Other Providers: Shayla Camacho ; Haylee Yang ; Calixto Phillips Coding Level of Care Code 34855 INP/OBS DISCH >30 MIN Diagnoses Acute respiratory failure with hypoxia J96.01 Acute kidney injury superimposed on CKD N17.9; N18.9 Elevated CK R74.8 Hypertension I10 Hypertension type: unspecified Anemia D64.9 Pulmonary nodules R91.8 Hypothyroidism E03.9 Pseudotumor cerebri G93.2 Tobacco use disorder F17.200 Idiopathic polyneuropathy G60.9
--- NOTE | 2022-10-17 15:58 | Nephrology Progress Note ---
Date of Service October 17, 2022 Assessment & Plan (1) Acute kidney injury superimposed on CKD: Plan: Non-oliguric. Electrolytes acceptable. Remains in a net negative fluid balance with diuretics. No emergent indication for dialysis. Potential future indications have been discussed in detail. Close outpatient follow up will be essential. Chris is scheduled for follow up with me in the [place] nephrology clinic next week. Continue prednisone 60 mg daily pending pathology report. Today is day #3. Rheumatology consultation appreciated. Medications are appropriately dosed for kidney function. Continue calcitriol 0.25 mcg daily. Increase Furosemide to 40 mg BID, goal is to continue to encourage a slightly negative fluid balance. (2) Metabolic acidosis with increased anion gap and accumulation of organic acids: Plan: Attributed to kidney dysfunction. Continue NaHCO3 650 mg BID. (3) Hypertension: Plan: BP remains acceptable. Remains on amlodipine and metoprolol per home Rx. Continue furosemide to encourage negative fluid balance. Renal artery duplex non-diagnostic due to habitus but velocities not appreciably elevated. (4) Hypoxia: Plan: Improved with diuretics. I was contacted by Chris's RN prior to discharge that O2 requirement increased today. Home O2 at discharge was arranged. Diuretics increased. Updated CXR demonstrating signs of persistent pulmonary edema. (5) Anemia: Plan: H/H stable. Hgb >11. Hold CAYETANO therapy. Venofer 200 mg IV x 2 doses completed while inpatient. Admission and Anticipated Discharge Date Admission Date: October 12, 2022 Subjective No acute events overnight. Chris was seen and evaluated with Dr. Vargas this morning. I reviewed the plan of care with Dr. Vargas and with Chris's sister (Chuyita). Chris continued to express frustration about being in the hospital. He reports some mild persistent cough but overall improvement. He denied notable dyspnea. No chest pain or palpitations. No fevers or chills. Good urine output. LE edema relatively stable. BP acceptable. Tolerating steroids. Blood glucose acceptable. Continued difficulty sleeping in the hospital and some achiness from the hospital bed. Chris and Chuyita confirmed that transportation is available to [place] for kidney biopsy. Dr. Dolan confirmed the scheduled procedure. Review of Systems Review of Systems: All systems reviewed & are unremarkable except as noted in HPI & below Physical Exam Constitutional: well developed and + morbidly obese; no acute distress Eyes: no scleral abnormality and no corneal abnormality ENMT: Mouth: no oral mucosal abnormality and oral mucous membranes not dry Neck: normal visual inspection and trachea midline Respiratory: normal respiratory effort Auscultation: lungs clear to auscultation bilaterally and + rales (few at right base) Cardiovascular: Rate/Rhythm: regular rate Heart Sounds: normal S1 and normal S2 Extremities: + edema Musculoskeletal: Extremities: no cyanosis and no clubbing Skin: normal turgor; no rashes, no lesions and no jaundice Neurologic: Motor/Sensory: no tremor and no asterixis Psychiatric: Orientation: alert and oriented x 3 Results & Data Vital Signs (Past 12 Hours) Vital Signs Temp Pulse Pulse Pulse Pulse Pulse Resp 10/17/22 15:07 86 24 10/17/22 14:39 90 100 H 88 10/17/22 13:13 90 26 H 10/17/22 13:02 82 20 10/17/22 12:27 10/17/22 12:14 77 22 10/17/22 08:30 10/17/22 07:23 77 20 10/17/22 07:20 36.5 C 77 18 Resp Resp Resp BP Pulse Ox Pulse Ox Pulse Ox 10/17/22 15:07 136/84 90 10/17/22 14:39 26 H 26 H 20 90 84 L 10/17/22 13:13 91 10/17/22 13:02 91 10/17/22 12:27 90 10/17/22 12:14 114/67 85 L 10/17/22 08:30 10/17/22 07:23 91 10/17/22 07:20 142/85 H 92 Pulse Ox O2 Del Method O2 Flow Rate O2 Flow Rate 10/17/22 15:07 Nasal Cannula 3 10/17/22 14:39 89 L 3 10/17/22 13:13 Nasal Cannula 4 10/17/22 13:02 Nasal Cannula 5 10/17/22 12:27 Nasal Cannula 4 10/17/22 12:14 Room Air 10/17/22 08:30 Room Air 10/17/22 07:23 Room Air 10/17/22 07:20 Room Air Laboratory Results Laboratory Results - last 24 hr 10/17/22 10/17/22 05:21 05:21 WBC 19.79 H RBC 4.38 L Hgb 12.8 L Hct 38.4 L MCV 87.7 MCH 29.2 MCHC 33.3 RDW Std Deviation 46.8 H RDW Coeff of Tiffanie 14.6 H Plt Count 319 MPV 11.2 Immature Gran % (Auto) 1.1 Neut % (Auto) 86.1 Lymph % (Auto) 4.4 Esmeralda % (Auto) 8.1 Eos % (Auto) 0.1 Baso % (Auto) 0.2 Neut # (Auto) 17.06 H Lymph # (Auto) 0.87 L Esmeralda # (Auto) 1.60 H Eos # (Auto) 0.02 Baso # (Auto) 0.03 Immature Gran # (Auto) 0.21 H Sodium 141 Potassium 4.0 Chloride 108 H Carbon Dioxide 19 L Anion Gap 14 H BUN 81 H Creatinine 6.13 H* Est Cr Clr Drug Dosing 21.4 Est GFR ( Amer) 11.2 Est GFR (Non-Af Amer) 9.7 BUN/Creatinine Ratio 13.2 Glucose 107 H Calcium 6.9 L PG Care Time/CCT Total # of Minutes Spent Total Time Spent with Patient: Total time spent is greater than 50% in coordination of care (as documented) at patient's floor/unit and/or counseling patient: Coding Level of Care Code 57570 SUB INP/OBS CARE 3/50MIN Diagnoses Acute kidney injury superimposed on CKD N17.9; N18.9 Metabolic acidosis with increased anion gap and accumulation of organic acids E87.20 Hypertension I10 Hypertension type: unspecified Hypoxia R09.02 Anemia D64.9 (3) Hypertension Hypertension type: unspecified Qualified Code(s): I10 - Essential (primary) hypertension
[2022-10-17 16:23] LABS: Aldolase 28.6 U/L (< OR = 8.1)
[2022-10-19 16:52] LABS: Angiotensin Converting Enzyme 47 U/L (9-67); Vitamin D 1,25 25 pg/mL (18-72); Vitamin D3,1,25 25 pg/mL
== END 2022-10-17 16:25 | disposition home or self-care (01) | DRG 189 ==
LOC: ED 07:25 → 3W 12:28 → SUATTDRO 12:28 → 3W 13:17